=== PATIENT | female | born 1935 | race Caucasian/White ===

== ENCOUNTER 2020-06-11 15:54 | Emergency (ER) | payer MEDICARE, BC ==
[2020-06-11] MEDS ORDERED: Sodium Chloride 0.9% 10 ML Syringe FLUSH PRN ×2 (15:59→16:13)
[2020-06-11 16:11] VITALS: BP 164/107
[2020-06-11] MEDS ORDERED: Diltiazem 25 MG/5 ML SDV IVPUSH ONE (16:13)
[2020-06-11] MEDS ORDERED: Diltiazem 125 MG in Sodium Chloride 0.9% 100 ML IV SCH (16:15)
[2020-06-11 16:40] LABS: PTT,PARTIAL THROMBOPLSTIN TIME 32.3 SEC (22.0-34.0)
[2020-06-11 16:46] LABS: ANION GAP 14.3 mEq/L (7-13); CHLORIDE,CL 106 mmol/L (98-107); SODIUM,NA 141 mmol/L (136-145)
--- NOTE | 2020-06-11 16:49 | CR ---
PROCEDURE INFORMATION: Exam: XR Chest, 1 View Exam date and time: 06/11/2020 4:33 PM Age: 85 years old Clinical indication: Other: Chest pain TECHNIQUE: Imaging protocol: XR of the chest Views: 1 view. COMPARISON: CT Chest w Cont 08/18/2015 4:43 PM FINDINGS: Lungs: The lungs are hyperinflated, consistent with underlying small airways disease. Nonspecific bibasilar consolidation is present, consistent with atelectasis, edema, or pneumonia. Pleural space: Unremarkable. No pleural effusion. No pneumothorax. Heart/Mediastinum: Unremarkable. No cardiomegaly. Bones/joints: Unremarkable. IMPRESSION: Nonspecific bibasilar consolidation is present, consistent with atelectasis, edema, or pneumonia.
[2020-06-11] MEDS ORDERED: Digoxin 500 MCG/2 ML Amp IVPUSH ONE (17:21)
[2020-06-11 17:49] VITALS: PULSE 110
--- NOTE | 2020-06-11 19:01 | EDM.PDOC ---
Scribed by Tabatha Petersen 06/11/20 1632 for Nadir Little MD <Nadir Little - Last Filed: 06/11/20 19:09> ED HPI GENERAL MEDICAL PROBLEM - General Chief Complaint: Cardiovascular Problem Stated Complaint: CLINIC TO ER Time Seen by Provider: 06/11/20 16:06 Source of Information: Reports: Patient, RN, RN Notes Reviewed History Limitations: Reports: No Limitations - History of Present Illness INITIAL COMMENTS - FREE TEXT/NARRATIVE: Patient presents to ED by POV from [facility] to see Dr. Falcon with complaint of feeling generalized weakness with shortness of breath, rapid heart rate and a mild chest pressure for the past 3 days. Denies radiating pain, dizziness, lightheadedness or syncope. Denies cough, orthopnea, increasing edema, palpitations, fever, chills or any known COVID exposures. History of pulmonary embolism x3 approximately 3 years ago. INR in clinic today was 2.4. Onset Date: 06/08/20 Duration: Constant Location: Reports: Chest Quality: Reports: Ache Severity: Moderate Improves with: Reports: None Worsens with: Reports: None Associated Symptoms: Reports: No Other Symptoms - Related Data Allergies Allergy/AdvReac Type Severity Reaction Status Date / Time levofloxacin [From Levaquin] Allergy Unknown Other Verified 08/20/15 13:06 Home Meds: Home Meds LORazepam 1 tab PO Q6H PRN 08/18/15 [History] Lutein 1 tab PO DAILY 08/18/15 [History] Methylcellulose [Citrucel] 2 tab PO DAILY 08/18/15 [History] Omeprazole [Prilosec] 20 mg PO BID 08/18/15 [History] Vitamin E 400 units PO DAILY 08/18/15 [History] Warfarin [Coumadin] 5 mg PO DAILY #30 tablet 08/23/15 [Rx] Past Medical History Other HEENT History: Pt states that she sees well with her glasses Cardiovascular History: Reports: Blood Clots/VTE/DVT (PE x3 in 2017) Gastrointestinal History: Reports: GERD Psychiatric History: Reports: Anxiety Social & Family History - Family History Family Medical History: Noncontributory - Living Situation & Occupation Living situation: Reports: , Alone Occupation: Retired ED ROS GENERAL - Review of Systems Review Of Systems: Comprehensive ROS is negative, except as noted in HPI. ED EXAM, GENERAL - Physical Exam Exam: See Below Exam Limited By: No Limitations General Appearance: Alert, WD/WN, No Apparent Distress, Anxious Eye Exam: Bilateral Eye: Normal Inspection Nose: Normal Inspection, Normal Mucosa, No Blood Throat/Mouth: Normal Inspection, Normal Lips, Normal Teeth, Normal Gums, Normal Oropharynx, Normal Voice, No Airway Compromise Head: Atraumatic, Normocephalic Neck: Normal Inspection, Supple, Non-Tender, Full Range of Motion Respiratory/Chest: No Respiratory Distress, Lungs Clear, Normal Breath Sounds, No Accessory Muscle Use, Chest Non-Tender Cardiovascular: No Edema, No JVD, Tachycardia, Extra Beats GI/Abdominal: Normal Bowel Sounds, Soft, Non-Tender Back Exam: Normal Inspection Extremities: Normal Inspection, Normal Range of Motion, Non-Tender, No Pedal Edema Neurological: Alert, Oriented, CN II-XII Intact, Normal Cognition, Normal Gait, No Motor/Sensory Deficits Psychiatric: Normal Affect, Anxious Skin Exam: Warm, Dry, Intact, Normal Color, No Rash EKG INTERPRETATION EKG Date: 06/11/20 Time: 16:09 Rhythm: A-Fib (RVR.) Rate (Beats/Min): 139 [place]: Normal P-Wave: Present QRS: Normal ST-T: Normal QT: Prolonged EKG Interpretation Comments: EKG #2 at 1627hours shows atrial flutter with varied AV block. Rate is 100. Inferior infarct, acute. Course - Radiology Interpretation Free Text/Narrative:: Chest x-ray: Nonspecific bibasilar consolidation is present, consistent with atelectasis, edema, or pneumonia. See rad report. - Re-Assessments/Exams Free Text/Narrative Re-Assessment/Exam: 06/11/20 18:55 Pt now rate controlled but with persistent A-fib on the Cardizem drip. No bed available at [facility]. Plan to admit pt here to the hospitalist. Free Text/Narrative Re-Assessment/Exam: 06/11/20 19:09 Dr. Pandey will evaluate to see if he can admit the pt here or not. Care transferred to [facility] while awaiting decision to admit or transfer. Departure - Departure Time of Disposition: 19:00 Disposition: DC/Tfer to Acute Hospital 02 Condition: Good Clinical Impression: New onset atrial fibrillation, Atrial fibrillation with rapid ventricular response - Discharge Information *PRESCRIPTION DRUG MONITORING PROGRAM REVIEWED*: Not Applicable *COPY OF PRESCRIPTION DRUG MONITORING REPORT IN PATIENT JIN: Not Applicable Forms: ED Department Discharge Care Plan Goals: Discussed the patient's history, examination, EKG and treatments with Dr. Perez (Hospitalist with [facility] in [place]). Dr. Perez accepted the patient for continued evaluation and management as an inpatient at [facility] in [place]. The patient will be transported by [facility]. <Alonzo Duffy - Last Filed: 06/11/20 20:40> Course - Vital Signs Last Recorded V/S: Last Vital Signs Temp 35.8 C L 06/11/20 16:10 Pulse 110 H 06/11/20 17:46 Resp 20 06/11/20 16:10 BP 164/107 H 06/11/20 16:10 Pulse Ox 96 06/11/20 16:10 - Orders/Labs/Meds Orders: Active Orders 24 hr Category Date Time Status EKG 12 Lead [EKG Documentation Completion] [RC] STAT Care 06/11/20 15:59 Active EKG 12 Lead [EKG Documentation Completion] [RC] STAT Care 06/11/20 16:25 Active Peripheral IV Care [RC] . DIRECTED Care 06/11/20 15:59 Active Peripheral IV Care [RC] . DIRECTED Care 06/11/20 16:13 Active Regular Diet [DIET] Diet 06/11/20 Dinner Active Diltiazem 125 mg Med 06/11/20 16:15 Active Sodium Chloride 0.9% [Normal Saline] 100 ml IV TITRATE Sodium Chloride 0.9% [Saline Flush] Med 06/11/20 15:59 Active 10 ml FLUSH ASDIRECTED PRN Sodium Chloride 0.9% [Saline Flush] Med 06/11/20 16:13 Active 10 ml FLUSH ASDIRECTED PRN Peripheral IV Insertion Adult [OM.PC] Stat Oth 06/11/20 15:59 Ordered Peripheral IV Insertion Adult [OM.PC] Stat Oth 06/11/20 16:13 Ordered Medication Orders Diltiazem HCl 125 mg/ Sodium (Chloride) 125 mls @ 5 mls/hr IV TITRATE ROMULO; Protocol Last Titration: 06/11/20 17:21 Dose: 15 mg/hr, 15 mls/hr Documented by: Titration: 06/11/20 17:13 Dose: 10 mg/hr, 10 mls/hr Documented by: Admin: 06/11/20 16:34 Dose: 5 mg/hr, 5 mls/hr Documented by: TILTALI Sodium Chloride (Saline Flush) 10 ml FLUSH ASDIRECTED PRN PRN Reason: Keep Vein Open Last Admin: 06/11/20 16:25 Dose: 10 ml Documented by: TILTALI Sodium Chloride (Saline Flush) 10 ml FLUSH ASDIRECTED PRN PRN Reason: Keep Vein Open Labs: Laboratory Tests 06/11/20 06/11/20 06/11/20 Range/Units 16:10 16:10 16:10 WBC 7.0 (5.0-10.0) 10^3/uL RBC 3.81 L (4.2-5.4) 10^6/uL Hgb 12.4 (12.0-16.0) g/dL Hct 37.9 (37.0-47.0) % MCV 99.5 (80-100) fL MCH 32.5 (27.0-34.0) pg MCHC 32.7 L (33.0-35.0) g/dL Plt Count 256 D (150-450) 10^3/uL Neut % (Auto) 62.5 (42.2-75.2) % Lymph % (Auto) 23.5 (20.5-50.1) % [place] % (Auto) 8.4 H (2-8) % Eos % (Auto) 5.3 H (1.0-3.0) % Baso % (Auto) 0.3 (0.0-1.0) % PT 20.8 H D (9.0-12.0) SEC INR 2.2 H (0.9-1.2) APTT 32.3 (22.0-34.0) SEC Sodium 141 (136-145) mmol/L Potassium 4.3 (3.5-5.1) mmol/L Chloride 106 (98-107) mmol/L Carbon Dioxide 25 (21-32) mmol/L Anion Gap 14.3 H (7-13) mEq/L BUN 25 H (7-18) mg/dL Creatinine 0.82 (0.55-1.02) mg/dL Est Cr Clr Drug Dosing 39.98 mL/min Estimated GFR (MDRD) > 60 BUN/Creatinine Ratio 30.5 (No establ ref range) Glucose 102 H (74-99) mg/dL Calcium 8.8 (8.5-10.1) mg/dL Magnesium 2.3 (1.8-2.4) mg/dL Total Bilirubin 0.4 (0.2-1.0) mg/dL AST 27 (15-37) U/L ALT 71 H (14-59) U/L Alkaline Phosphatase 87 (46-116) U/L Troponin I < 0.017 (0.000-0.056) ng/mL B-Natriuretic Peptide 402 H (0-100) pg/ml Total Protein 7.0 (6.4-8.2) g/dL Albumin 3.3 L (3.4-5.0) g/dL Globulin 3.7 Albumin/Globulin Ratio 0.89 TSH, Ultra Sensitive 0.98 (0.36-3.74) uIU/mL Meds: Medications Generic Name Dose Route Start Last Admin Trade Name Freq PRN Reason Stop Dose Admin Diltiazem HCl 125 mg/ Sodium 125 mls @ 5 mls/hr 06/11/20 16:15 06/11/20 17:21 Chloride IV 15 mg/hr TITRATE ROMULO 15 mls/hr Titration Protocol 5 MG/HR Sodium Chloride 10 ml 06/11/20 15:59 06/11/20 16:25 Saline Flush FLUSH 10 ml ASDIRECTED PRN Administration Keep Vein Open Sodium Chloride 10 ml 06/11/20 16:13 Saline Flush FLUSH ASDIRECTED PRN Keep Vein Open Discontinued Medications Generic Name Dose Route Start Last Admin Trade Name Freq PRN Reason Stop Dose Admin Digoxin 250 mcg 06/11/20 17:21 06/11/20 17:46 Lanoxin IVPUSH 06/11/20 17:22 250 mcg ONETIME ONE Administration Diltiazem HCl 20 mg 06/11/20 16:13 06/11/20 16:21 Diltiazem IVPUSH 06/11/20 16:14 20 mg ONETIME ONE Administration Departure - Departure Time of Disposition: 20:39 Sepsis Event Note (ED) - Focused Exam Vital Signs: Vital Signs Temp Pulse Pulse Resp BP Pulse Ox 06/11/20 17:46 110 H 06/11/20 16:10 35.8 C L 140 H 20 164/107 H 96 I have read and agree with the documentation that has been completed regarding this visit. By signing this record, I attest that the documentation was completed in my physical presence and is an accurate record of the encounter.
== END 2020-06-11 22:23 ==
LOC: DL.ED 15:54
DX: I48.91 Unspecified atrial fibrillation (principal); K21.9 Gastro-esophageal reflux disease without esophagitis; Z79.01 Long term (current) use of anticoagulants; Z79.899 Other long term (current) drug therapy; Z88.1 Allergy status to other antibiotic agents; R06.02 Shortness of breath
CPT/HCPCS: 36415; 71045; 80053; 83735; 83880; 84443; 84484; 85025; 85610; 85730; 93005; 93010; 96365; 96366; 96375; 99284; 99285; J1160; J3490; J7050

== ENCOUNTER 2021-08-15 08:09 | Inpatient (IN) | payer MEDICARE, BC ==
--- NOTE | 2021-08-15 08:46 | EDM.PDOC ---
"ED HPI GENERAL MEDICAL PROBLEM - General Chief Complaint: Respiratory Problem Stated Complaint: COVID Time Seen by Provider: 08/15/21 08:46 Source of Information: Reports: Patient, Old Records, RN, RN Notes Reviewed History Limitations: Reports: No Limitations - History of Present Illness INITIAL COMMENTS - FREE TEXT/NARRATIVE: Pt presents to ER with c/o shortness of breath and cough. She was recently diagnosed with COVID and was doing well at home until last night. She had an outpatient order from clinic to receive IV Regeneron, but due to a supply issue she was not able to receive the infusion. Pt admits to feeling a fast HR, but denies chest pain. She is chronically anticoagulated on Coumadin for A-fib. She is unsure of fever or chills. She claims she had a COVID vaccine, but does not know when. Onset: Gradual Duration: Constant, Getting Worse Location: Reports: Chest, Generalized Severity: Moderate Improves with: Reports: None Worsens with: Reports: None abdomen Pain Score (Numeric/FACES): 1 - Related Data Allergies Allergy/AdvReac Type Severity Reaction Status Date / Time levofloxacin [From Levaquin] Allergy Unknown Other Verified 08/15/21 08:38 Home Meds: Home Meds LORazepam 1 tab PO Q6H PRN 08/18/15 [History] Lutein 1 tab PO DAILY 08/18/15 [History] Methylcellulose [Citrucel] 2 tab PO DAILY 08/18/15 [History] Omeprazole [Prilosec] 20 mg PO BID 08/18/15 [History] Vitamin E 400 units PO DAILY 08/18/15 [History] Warfarin [Coumadin] 5 mg PO DAILY #30 tablet 08/23/15 [Rx] Past Medical History Other HEENT History: Pt states that she sees well with her glasses Cardiovascular History: Reports: Afib, Blood Clots/VTE/DVT Respiratory History: Reports: None Gastrointestinal History: Reports: GERD Genitourinary History: Reports: None 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: Musculoskeletal History: Reports: None Neurological History: Reports: None Psychiatric History: Reports: Anxiety Endocrine/Metabolic History: Reports: None Hematologic History: Reports: None Immunologic History: Reports: None Oncologic (Cancer) History: Reports: None Dermatologic History: Reports: None - Infectious Disease History Infectious Disease History: Reports: None Social & Family History - Family History Family Medical History: No Pertinent Family History - Tobacco Use Tobacco Use Status *Q: Never Tobacco User Second Hand Smoke Exposure: No - Caffeine Use Caffeine Use: Reports: Coffee - Recreational Drug Use Recreational Drug Use: No - Living Situation & Occupation Living situation: Reports: , Alone Occupation: Retired ED ROS GENERAL - Review of Systems Review Of Systems: Comprehensive ROS is negative, except as noted in HPI. ED EXAM, GENERAL - Physical Exam Exam: See Below Exam Limited By: No Limitations General Appearance: Alert, No Apparent Distress, Other (Frail elderly appearing) Eye Exam: Bilateral Eye: Normal Inspection Nose: Normal Inspection, No Blood Throat/Mouth: Normal Lips, Normal Voice, No Airway Compromise Head: Atraumatic, Normocephalic Neck: Normal Inspection Respiratory/Chest: No Respiratory Distress, No Accessory Muscle Use, Decreased Breath Sounds. No: Crackles, Rales, Rhonchi, Wheezing Cardiovascular: Tachycardia, Irregularly Irregular GI/Abdominal: Normal Bowel Sounds, Soft, Non-Tender Back Exam: Normal Inspection Extremities: Normal Inspection Neurological: Alert, Oriented (to person and place), No Motor/Sensory Deficits, Confused Psychiatric: Normal Mood Skin Exam: Warm, Dry, Intact, Normal Color, No Rash #1 Interpretation EKG Date: 08/15/21 Time: 08:55 Rhythm: Other (atrial fibrillation with rapid V-rate) Rate (Beats/Min): 147 [place]: Normal P-Wave: Present QRS: Normal ST-T: Other (borderline T abnormalities, anterior leads) QT: Normal Comparison: NA - No Prior EKG Course - Vital Signs Last Recorded V/S: Last Vital Signs Temp 99.2 F 08/15/21 08:32 Pulse 146 H 08/15/21 08:32 Resp 28 H 08/15/21 08:32 BP 134/90 08/15/21 08:32 Pulse Ox 94 L 08/15/21 08:32 - Orders/Labs/Meds Orders: Active Orders 24 hr Category Date Time Status Peripheral IV Care [RC] . DIRECTED Care 08/15/21 08:47 Active CULTURE BLOOD [BC] Stat Lab 08/15/21 08:29 Results CULTURE BLOOD [BC] Stat Lab 08/15/21 09:35 Received Diltiazem 125 mg Med 08/15/21 09:00 Active Sodium Chloride 0.9% [Normal Saline] 100 ml IV TITRATE Sodium Chloride 0.9% [Saline Flush] Med 08/15/21 08:47 Active 10 ml FLUSH ASDIRECTED PRN Blood Culture x2 Reflex Set [OM.PC] Stat Oth 08/15/21 08:46 Ordered Peripheral IV Insertion Pediatric [OM.PC] Stat Oth 08/15/21 08:46 Ordered Medication Orders Diltiazem HCl 125 mg/ Sodium (Chloride) 125 mls @ 10 mls/hr IV TITRATE ROMULO; Protocol Last Titration: 08/15/21 09:15 Dose: 0 mg/hr, 0 mls/hr Documented by: Titration: 08/15/21 09:11 Dose: 10 mg/hr, 10 mls/hr Documented by: Admin: 08/15/21 09:04 Dose: 10 mg/hr, 10 mls/hr Documented by: MAYITO Sodium Chloride (Sodium Chloride 0.9% 10 Ml Syringe) 10 ml FLUSH ASDIRECTED PRN PRN Reason: Keep Vein Open Last Admin: 08/15/21 09:04 Dose: 10 ml Documented by: MAYITO Labs: Laboratory Tests 08/15/21 08/15/21 08/15/21 Range/Units 08:29 08:29 08:29 WBC 5.1 (5.0-10.0) 10^3/uL RBC 3.80 L (4.2-5.4) 10^6/uL Hgb 12.0 (12.0-16.0) g/dL Hct 36.0 L (37.0-47.0) % MCV 94.7 D (80-100) fL MCH 31.6 (27.0-34.0) pg MCHC 33.3 (33.0-35.0) g/dL Plt Count 125 L D (150-450) 10^3/uL Neut % (Auto) 61.8 (42.2-75.2) % Lymph % (Auto) 25.9 (20.5-50.1) % [place] % (Auto) 12.1 H (2-8) % Eos % (Auto) 0.0 L (1.0-3.0) % Baso % (Auto) 0.2 (0.0-1.0) % PT 25.7 H D (9.0-12.0) SEC INR 2.6 H (0.9-1.2) APTT 34.4 H (22.0-34.0) SEC D-Dimer, Quantitative < 100 (0-400) ng/mL Sodium 140 (136-145) mmol/L Potassium 3.7 (3.5-5.1) mmol/L Chloride 106 (98-107) mmol/L Carbon Dioxide 24 (21-32) mmol/L Anion Gap 13.7 H (7-13) mEq/L BUN 17 (7-18) mg/dL Creatinine 1.13 H (0.55-1.02) mg/dL Est Cr Clr Drug Dosing 34.71 mL/min Estimated GFR (MDRD) 45 BUN/Creatinine Ratio 15.0 (No establ ref range) Glucose 99 (70-99) mg/dL Lactic Acid (0.4-2.0) mmol/L Calcium 8.4 L (8.5-10.1) mg/dL Ferritin (8-252) mg/mL Total Bilirubin 0.7 (0.2-1.0) mg/dL AST 28 (15-37) U/L ALT 25 (14-59) U/L Alkaline Phosphatase 68 (46-116) U/L Troponin I High Sens 15 (<=51) pg/mL C-Reactive Protein < 0.2 (0.0-0.9) mg/dL B-Natriuretic Peptide 459 H (0-100) pg/ml Total Protein 6.3 L (6.4-8.2) g/dL Albumin 3.3 L (3.4-5.0) g/dL Globulin 3.0 Albumin/Globulin Ratio 1.10 08/15/21 08/15/21 Range/Units 08:29 08:29 WBC (5.0-10.0) 10^3/uL RBC (4.2-5.4) 10^6/uL Hgb (12.0-16.0) g/dL Hct (37.0-47.0) % MCV (80-100) fL MCH (27.0-34.0) pg MCHC (33.0-35.0) g/dL Plt Count (150-450) 10^3/uL Neut % (Auto) (42.2-75.2) % Lymph % (Auto) (20.5-50.1) % [place] % (Auto) (2-8) % Eos % (Auto) (1.0-3.0) % Baso % (Auto) (0.0-1.0) % PT (9.0-12.0) SEC INR (0.9-1.2) APTT (22.0-34.0) SEC D-Dimer, Quantitative (0-400) ng/mL Sodium (136-145) mmol/L Potassium (3.5-5.1) mmol/L Chloride (98-107) mmol/L Carbon Dioxide (21-32) mmol/L Anion Gap (7-13) mEq/L BUN (7-18) mg/dL Creatinine (0.55-1.02) mg/dL Est Cr Clr Drug Dosing mL/min Estimated GFR (MDRD) BUN/Creatinine Ratio (No establ ref range) Glucose (70-99) mg/dL Lactic Acid 1.3 (0.4-2.0) mmol/L Calcium (8.5-10.1) mg/dL Ferritin 75 (8-252) mg/mL Total Bilirubin (0.2-1.0) mg/dL AST (15-37) U/L ALT (14-59) U/L Alkaline Phosphatase (46-116) U/L Troponin I High Sens (<=51) pg/mL C-Reactive Protein (0.0-0.9) mg/dL B-Natriuretic Peptide (0-100) pg/ml Total Protein (6.4-8.2) g/dL Albumin (3.4-5.0) g/dL Globulin Albumin/Globulin Ratio Meds: Medications Generic Name Dose Route Start Last Admin Trade Name Freq PRN Reason Stop Dose Admin Diltiazem HCl 125 mg/ Sodium 125 mls @ 10 mls/hr 08/15/21 09:00 08/15/21 09:15 Chloride IV 0 mg/hr TITRATE ROMULO 0 mls/hr Titration Protocol 10 MG/HR Sodium Chloride 10 ml 08/15/21 08:47 08/15/21 09:04 Sodium Chloride 0.9% 10 Ml Syringe FLUSH 10 ml ASDIRECTED PRN Administration Keep Vein Open Discontinued Medications Generic Name Dose Route Start Last Admin Trade Name Freq PRN Reason Stop Dose Admin Diltiazem HCl 20 mg 08/15/21 08:48 08/15/21 09:04 Diltiazem 25 Mg/5 Ml Sdv IVPUSH 08/15/21 08:49 20 mg ONETIME ONE Administration - Radiology Interpretation Free Text/Narrative:: [facility] [place] [facility] Final Radiology Report Call: [phone] assistance Online chat: [email or web address] Name: KANDICE NAZARIO Age: 86Years F Date: 08/15/2021 SSN: -- : [id number] Study: CT CHEST WO CONT Requesting Physician: NOLVIA REES Images: [id number] Addl Studies: Provided Clinical History: COVID, hypoxia, A-fib w/RVR Contrast: Without Contrast Medium: Contrast Amount: Contrast Method: Page 1 of 2 PROCEDURE INFORMATION: Exam: CT Chest Without Contrast; Diagnostic Exam date and time: 08/15/2021 9:43 AM Age: 86 years old Clinical indication: Other: Covid, hypoxia, a-fib w/rvr TECHNIQUE: Imaging protocol: Diagnostic computed tomography of the chest without contrast. Radiation optimization: All CT scans at this facility use at least one of these dose optimization techniques: automated exposure control; mA and/or kV adjustment per patient size (includes targeted exams where dose is matched to clinical indication); or iterative reconstruction. COMPARISON: CR Chest 1V Frontal 06/11/2020 4:33 PM FINDINGS: Lungs: Bilateral lower lobe atelectasis/consolidation. Right lower lobe lung nodule measuring 7 mm. Bilateral multifocal ground-glass opacities. Pleural spaces: Bilateral moderate sized pleural effusions. Heart: Cardiomegaly. Calcified coronary artery disease. Aorta: Unremarkable. No aortic aneurysm. Lymph nodes: Unremarkable. No enlarged lymph nodes. Diaphragm: Small hiatal hernia. Kidneys and ureters: Bilateral renal cortical cystic nodules. Largest superior cortex right kidney measuring 5.5 cm. Bones/joints: Lower thoracic spine compression deformity. Soft tissues: Unremarkable. IMPRESSION: 1. Bilateral multifocal ground-glass opacities. Findings could be secondary to COVID-19 pneumonia. KANDICE NAZARIO | Final Radiology Report CONFIDENTIALITY STATEMENT This report is intended only for use by the referring physician, and only in accordance with law. If you received this in error, call [phone]. Page 2 of 2 2. Bilateral moderate sized pleural effusions with lower lobe atelectasis/consolidation. 3. Right lower lobe lung nodule.For patients at low risk (minimal or absent history of smoking and of other known risk factors), recommend CT Chest at 6-12 months, then consider CT Chest at 18-24 months. For patients at high risk (history of smoking or of other known risk factors), recommend CT Chest at 6-12 months, then [address] Chest at 18-24 months. (Reference: Pj) 4. Bilateral renal cortical cystic nodules incompletely imaged. COMMENTS: Consistent with the [place] [employer]'s Incidental Findings Committee white paper (J Am Cristi Radiol 2018): Any incidental renal lesion less than 1 cm or classified as too small to characterize, or any incidental cystic renal lesion characterized as simple- appearing, is likely benign. No follow-up imaging is recommended for these lesions per consensus recommendations based on imaging criteria. REFERENCES: Pj Hayes, et al. Guidelines for Management of Incidental Pulmonary Nodules Detected on CT Images: From the Fleischner Society 2017. Radiology. 2017;284(1):228-243. Thank you for allowing us to participate in the care of your patient. Dictated and Authenticated by: Owen Cottrell MD 08/15/2021 10:41 AM Central Time ([place] & [place]) Departure - Departure Time of Disposition: 11:54 (admitted to Dr. Ward) Disposition: Admitted As Inpatient 64 Condition: Fair Clinical Impression: COVID-19 virus infection, Atrial fibrillation with rapid ventricular response, Hypoxia - Discharge Information *PRESCRIPTION DRUG MONITORING PROGRAM REVIEWED*: Not Applicable *COPY OF PRESCRIPTION DRUG MONITORING REPORT IN PATIENT JIN: Not Applicable Forms: ED Department Discharge Sepsis Event Note (ED) - Evaluation Sepsis Screening Result: No Definite Risk - Focused Exam Vital Signs: Vital Signs Temp Pulse Resp BP Pulse Ox 08/15/21 08:32 99.2 F 146 H 28 H 134/90 94 L - My Orders Last 24 Hours: My Active Orders 08/15/21 08:29 CULTURE BLOOD [BC] Stat 08/15/21 08:46 Blood Culture x2 Reflex Set [OM.PC] Stat Peripheral IV Insertion Pediatric [OM.PC] Stat 08/15/21 08:47 Peripheral IV Care [RC] . DIRECTED Sodium Chloride 0.9% [Saline Flush] 10 ml FLUSH ASDIRECTED PRN 08/15/21 09:00 Diltiazem 125 mg Sodium Chloride 0.9% [Normal Saline] 100 ml IV TITRATE 08/15/21 09:35 CULTURE BLOOD [BC] Stat - Assessment/Plan Last 24 Hours: My Active Orders 08/15/21 08:29 CULTURE BLOOD [BC] Stat 08/15/21 08:46 Blood Culture x2 Reflex Set [OM.PC] Stat Peripheral IV Insertion Pediatric [OM.PC] Stat 08/15/21 08:47 Peripheral IV Care [RC] . DIRECTED Sodium Chloride 0.9% [Saline Flush] 10 ml FLUSH ASDIRECTED PRN 08/15/21 09:00 Diltiazem 125 mg Sodium Chloride 0.9% [Normal Saline] 100 ml IV TITRATE 08/15/21 09:35 CULTURE BLOOD [BC] Stat"
[2021-08-15] MEDS ORDERED: Diltiazem 25 MG/5 ML SDV IVPUSH ONE (08:48)
[2021-08-15] MEDS: Sodium Chloride 0.9% 10 ML Syringe FLUSH PRN (09:04)
[2021-08-15] MEDS: Diltiazem 125 MG in Sodium Chloride 0.9% 100 ML IV SCH (09:04)
[2021-08-15 09:15] LABS: PTT,PARTIAL THROMBOPLSTIN TIME 34.4 SEC (22.0-34.0)
[2021-08-15 09:23] LABS: ANION GAP 13.7 mEq/L (7-13); CHLORIDE,CL 106 mmol/L (98-107); SODIUM,NA 140 mmol/L (136-145)
--- NOTE | 2021-08-15 10:41 | CT ---
PROCEDURE INFORMATION: Exam: CT Chest Without Contrast; Diagnostic Exam date and time: 08/15/2021 9:43 AM Age: 86 years old Clinical indication: Other: Covid, hypoxia, a-fib w/rvr TECHNIQUE: Imaging protocol: Diagnostic computed tomography of the chest without contrast. Radiation optimization: All CT scans at this facility use at least one of these dose optimization techniques: automated exposure control; mA and/or kV adjustment per patient size (includes targeted exams where dose is matched to clinical indication); or iterative reconstruction. COMPARISON: CR Chest 1V Frontal 06/11/2020 4:33 PM FINDINGS: Lungs: Bilateral lower lobe atelectasis/consolidation. Right lower lobe lung nodule measuring 7 mm. Bilateral multifocal ground-glass opacities. Pleural spaces: Bilateral moderate sized pleural effusions. Heart: Cardiomegaly. Calcified coronary artery disease. Aorta: Unremarkable. No aortic aneurysm. Lymph nodes: Unremarkable. No enlarged lymph nodes. Diaphragm: Small hiatal hernia. Kidneys and ureters: Bilateral renal cortical cystic nodules. Largest superior cortex right kidney measuring 5.5 cm. Bones/joints: Lower thoracic spine compression deformity. Soft tissues: Unremarkable. IMPRESSION: 1. Bilateral multifocal ground-glass opacities. Findings could be secondary to COVID-19 pneumonia. 2. Bilateral moderate sized pleural effusions with lower lobe atelectasis/consolidation. 3. Right lower lobe lung nodule.For patients at low risk (minimal or absent history of smoking and of other known risk factors), recommend CT Chest at 6-12 months, then consider CT Chest at 18-24 months. For patients at high risk (history of smoking or of other known risk factors), recommend CT Chest at 6-12 months, then CT Chest at 18-24 months. (Reference: Pj) 4. Bilateral renal cortical cystic nodules incompletely imaged. COMMENTS: Consistent with the [employer]'s Incidental Findings Committee white paper (J Am Cristi Radiol 2018): Any incidental renal lesion less than 1 cm or classified as too small to characterize, or any incidental cystic renal lesion characterized as simple-appearing, is likely benign. No follow-up imaging is recommended for these lesions per consensus recommendations based on imaging criteria. REFERENCES: Pj Hayes, et al. Guidelines for Management of Incidental Pulmonary Nodules Detected on CT Images: From the [employer] 2017. Radiology. 2017;284(1):228-243.
--- NOTE | 2021-08-15 14:27 | PCM.HP ---
"H&P History of Present Illness - General Date of Service: 08/15/21 Admit Problem/Dx: Admission Diagnosis/Problem Admission Diagnosis/Problem Pneumonia Source of Information: Patient, Provider (ER) - History of Present Illness Initial Comments - Free Text/Narative: Pt presents to ER with c/o shortness of breath and cough. She was recently diagnosed with COVID. Pt could not specify the exact date. Pt was doing well at home until last night. She had an outpatient order from clinic to receive IV Regeneron, but due to a supply issue she was not able to receive the infusion. Pt admits to feeling a fast HR, but denies chest pain. She is chronically anticoagulated on Coumadin for A-fib. She is unsure of fever or chills. She claims she had a COVID vaccine, but does not know when. Onset of Symptoms: Reports: Gradual Duration of Symptoms: Reports: Day(s): abdomen Pain Score (Numeric/FACES): 1 - Related Data Allergies/Adverse Reactions: Allergies Allergy/AdvReac Type Severity Reaction Status Date / Time levofloxacin [From Levaquin] Allergy Unknown Other Verified 08/15/21 08:38 Home Medications: Home Meds LORazepam 1 tab PO Q6H PRN 08/18/15 [History] Lutein 1 tab PO DAILY 08/18/15 [History] Methylcellulose [Citrucel] 2 tab PO DAILY 08/18/15 [History] Omeprazole [Prilosec] 20 mg PO BID 08/18/15 [History] Vitamin E 400 units PO DAILY 08/18/15 [History] Furosemide [Lasix] 20 mg PO BIDMEALS 08/15/21 [History] Potassium Chloride [Klor-Con 10] 10 meq PO DAILY 08/15/21 [History] Warfarin [Coumadin] 2.5 mg PO DAILY 08/15/21 [History] carvediloL [Carvedilol] 25 mg PO BID 08/15/21 [History] Past Medical History Other HEENT History: Pt states that she sees well with her glasses Cardiovascular History: Reports: Afib, Blood Clots/VTE/DVT, Other (See Below) (CHF per PCP notes) Respiratory History: Reports: None Gastrointestinal History: Reports: GERD Genitourinary History: Reports: None ORE PUNCHER History: Reports: Musculoskeletal History: Reports: None Neurological History: Reports: None Psychiatric History: Reports: Anxiety Endocrine/Metabolic History: Reports: None Hematologic History: Reports: None Immunologic History: Reports: None Oncologic (Cancer) History: Reports: None Dermatologic History: Reports: None - Infectious Disease History Infectious Disease History: Reports: None Social & Family History - Family History Family Medical History: No Pertinent Family History - Tobacco Use Tobacco Use Status *Q: Never Tobacco User Second Hand Smoke Exposure: No - Caffeine Use Caffeine Use: Reports: Coffee - Recreational Drug Use Recreational Drug Use: No - Living Situation & Occupation Living situation: Reports: , Alone Occupation: Retired H&P Review of Systems - Review of Systems: Review Of Systems: Unable To Obtain (poor histroian) Reason Not Obtained: poor histroian General: Reports: Chills. Denies: Fever HEENT: Reports: No Symptoms Pulmonary: Reports: Shortness of Breath, Cough Cardiovascular: Denies: Chest Pain Gastrointestinal: Reports: Diarrhea. Denies: Abdominal Pain, Vomiting Skin: Reports: No Symptoms Exam - Exam Exam: See Below - Vital Signs Vital Signs: Last Vital Signs Temp 99.2 F 08/15/21 12:02 Pulse 146 H 08/15/21 08:32 Resp 30 H 08/15/21 13:30 BP 124/80 08/15/21 13:30 Pulse Ox 24 L 08/15/21 13:30 Weight: 144 lb - Exam Quality Assessment: Supplemental Oxygen General: Alert, Oriented HEENT: Conjunctiva Clear Neck: Supple Lungs: Clear to Auscultation Cardiovascular: Irregular Rhythm GI/Abdominal Exam: Soft, Non-Tender Back Exam: Normal Inspection Extremities: Other (chronic lymphoedema B) Neurological: Cranial Nerves Intact Neuro Extensive - Mental Status: Alert, Memory Loss-Recent Events Neuro Extensive - Motor, Sensory, Reflexes: CN II-XII Intact Psychiatric: Alert, Normal Affect - Patient Data Lab Results Last 24 hrs: Laboratory Results - last 24 hr 08/15/21 08/15/21 08/15/21 Range/Units 08:29 08:29 08:29 WBC 5.1 (5.0-10.0) 10^3/uL RBC 3.80 L (4.2-5.4) 10^6/uL Hgb 12.0 (12.0-16.0) g/dL Hct 36.0 L (37.0-47.0) % MCV 94.7 D (80-100) fL MCH 31.6 (27.0-34.0) pg MCHC 33.3 (33.0-35.0) g/dL Plt Count 125 L D (150-450) 10^3/uL Neut % (Auto) 61.8 (42.2-75.2) % Lymph % (Auto) 25.9 (20.5-50.1) % [place] % (Auto) 12.1 H (2-8) % Eos % (Auto) 0.0 L (1.0-3.0) % Baso % (Auto) 0.2 (0.0-1.0) % PT 25.7 H D (9.0-12.0) SEC INR 2.6 H (0.9-1.2) APTT 34.4 H (22.0-34.0) SEC D-Dimer, Quantitative < 100 (0-400) ng/mL Sodium 140 (136-145) mmol/L Potassium 3.7 (3.5-5.1) mmol/L Chloride 106 (98-107) mmol/L Carbon Dioxide 24 (21-32) mmol/L Anion Gap 13.7 H (7-13) mEq/L BUN 17 (7-18) mg/dL Creatinine 1.13 H (0.55-1.02) mg/dL Est Cr Clr Drug Dosing 34.71 mL/min Estimated GFR (MDRD) 45 BUN/Creatinine Ratio 15.0 (No establ ref range) Glucose 99 (70-99) mg/dL Lactic Acid (0.4-2.0) mmol/L Calcium 8.4 L (8.5-10.1) mg/dL Ferritin (8-252) mg/mL Total Bilirubin 0.7 (0.2-1.0) mg/dL AST 28 (15-37) U/L ALT 25 (14-59) U/L Alkaline Phosphatase 68 (46-116) U/L Troponin I High Sens 15 (<=51) pg/mL C-Reactive Protein < 0.2 (0.0-0.9) mg/dL B-Natriuretic Peptide 459 H (0-100) pg/ml Total Protein 6.3 L (6.4-8.2) g/dL Albumin 3.3 L (3.4-5.0) g/dL Globulin 3.0 Albumin/Globulin Ratio 1.10 08/15/21 08/15/21 Range/Units 08:29 08:29 WBC (5.0-10.0) 10^3/uL RBC (4.2-5.4) 10^6/uL Hgb (12.0-16.0) g/dL Hct (37.0-47.0) % MCV (80-100) fL MCH (27.0-34.0) pg MCHC (33.0-35.0) g/dL Plt Count (150-450) 10^3/uL Neut % (Auto) (42.2-75.2) % Lymph % (Auto) (20.5-50.1) % [place] % (Auto) (2-8) % Eos % (Auto) (1.0-3.0) % Baso % (Auto) (0.0-1.0) % PT (9.0-12.0) SEC INR (0.9-1.2) APTT (22.0-34.0) SEC D-Dimer, Quantitative (0-400) ng/mL Sodium (136-145) mmol/L Potassium (3.5-5.1) mmol/L Chloride (98-107) mmol/L Carbon Dioxide (21-32) mmol/L Anion Gap (7-13) mEq/L BUN (7-18) mg/dL Creatinine (0.55-1.02) mg/dL Est Cr Clr Drug Dosing mL/min Estimated GFR (MDRD) BUN/Creatinine Ratio (No establ ref range) Glucose (70-99) mg/dL Lactic Acid 1.3 (0.4-2.0) mmol/L Calcium (8.5-10.1) mg/dL Ferritin 75 (8-252) mg/mL Total Bilirubin (0.2-1.0) mg/dL AST (15-37) U/L ALT (14-59) U/L Alkaline Phosphatase (46-116) U/L Troponin I High Sens (<=51) pg/mL C-Reactive Protein (0.0-0.9) mg/dL B-Natriuretic Peptide (0-100) pg/ml Total Protein (6.4-8.2) g/dL Albumin (3.4-5.0) g/dL Globulin Albumin/Globulin Ratio Result Diagrams: 08/15/21 08:29 08/15/21 08:29 Christiano Results Last 24 hrs: Microbiology 08/15/21 08:29 Anaerobic Blood Culture - Final Blood - Venous - Iv Start Imaging Impressions Last 24 hrs: Exam: CT Chest Without Contrast; Diagnostic Exam date and time: 08/15/2021 9:43 AM Age: 86 years old Clinical indication: Other: Covid, hypoxia, a-fib w/rvr TECHNIQUE: Imaging protocol: Diagnostic computed tomography of the chest without contrast. Radiation optimization: All CT scans at this facility use at least one of these dose optimization techniques: automated exposure control; mA and/or kV adjustment per patient size (includes targeted exams where dose is matched to clinical indication); or iterative reconstruction. COMPARISON: CR Chest 1V Frontal 06/11/2020 4:33 PM FINDINGS: Lungs: Bilateral lower lobe atelectasis/consolidation. Right lower lobe lung nodule measuring 7 mm. Bilateral multifocal ground-glass opacities. Pleural spaces: Bilateral moderate sized pleural effusions. Heart: Cardiomegaly. Calcified coronary artery disease. Aorta: Unremarkable. No aortic aneurysm. Lymph nodes: Unremarkable. No enlarged lymph nodes. Diaphragm: Small hiatal hernia. Kidneys and ureters: Bilateral renal cortical cystic nodules. Largest superior cortex right kidney measuring 5.5 cm. Bones/joints: Lower thoracic spine compression deformity. Soft tissues: Unremarkable. IMPRESSION: 1. Bilateral multifocal ground-glass opacities. Findings could be secondary to COVID-19 pneumonia. KANDICE NAZARIO | Final Radiology Report CONFIDENTIALITY STATEMENT This report is intended only for use by the referring physician, and only in accordance with law. If you received this in error, call [phone]. Page 2 of 2 2. Bilateral moderate sized pleural effusions with lower lobe atelectasis/consolidation. 3. Right lower lobe lung nodule.For patients at low risk (minimal or absent history of smoking and of other known risk factors), recommend CT Chest at 6-12 months, then consider CT Chest at 18-24 months. For patients at high risk (history of smoking or of other known risk factors), recommend CT Chest at 6-12 months, then CT Chest at 18-24 months. (Reference: Pj) 4. Bilateral renal cortical cystic nodules incompletely imaged. COMMENTS: Consistent with the [employer]'s Incidental Findings Committee white paper (J Am Cristi Radiol 2018): Any incidental renal lesion less than 1 cm or classified as too small to characterize, or any incidental cystic renal lesion characterized as simple- appearing, is likely benign. No follow-up imaging is recommended for these lesions per consensus recommendations based on imaging criteria. Problem List Initiated/Reviewed/Updated: No Orders Last 24hrs: Active Orders 24 hr Category Date Time Status Admission Diagnosis [ADT] Stat ADT 08/15/21 11:50 Ordered Admission Status [Patient Status] [ADT] Routine ADT 08/15/21 11:50 Active Peripheral IV Care [RC] . DIRECTED Care 08/15/21 08:47 Active CULTURE BLOOD [BC] Stat Lab 08/15/21 08:29 Results CULTURE BLOOD [BC] Stat Lab 08/15/21 09:35 Received Diltiazem 125 mg Med 08/15/21 09:00 Active Sodium Chloride 0.9% [Normal Saline] 100 ml IV TITRATE Sodium Chloride 0.9% [Saline Flush] Med 08/15/21 08:47 Active 10 ml FLUSH ASDIRECTED PRN Blood Culture x2 Reflex Set [OM.PC] Stat Oth 08/15/21 08:46 Ordered Peripheral IV Insertion Pediatric [OM.PC] Stat Oth 08/15/21 08:46 Ordered Medication Orders Diltiazem HCl 125 mg/ Sodium (Chloride) 125 mls @ 10 mls/hr IV TITRATE ROMULO; Protocol Last Titration: 08/15/21 14:00 Dose: 5 mg/hr, 5 mls/hr Documented by: Titration: 08/15/21 12:30 Dose: 10 mg/hr, 10 mls/hr Documented by: MARCELLVCALFIE Titration: 08/15/21 09:15 Dose: 0 mg/hr, 0 mls/hr Documented by: Titration: 08/15/21 09:11 Dose: 10 mg/hr, 10 mls/hr Documented by: Admin: 08/15/21 09:04 Dose: 10 mg/hr, 10 mls/hr Documented by: MAYITO Sodium Chloride (Sodium Chloride 0.9% 10 Ml Syringe) 10 ml FLUSH ASDIRECTED PRN PRN Reason: Keep Vein Open Last Admin: 08/15/21 09:04 Dose: 10 ml Documented by: MAYITO Assessment/Plan Comment:: COVID pneumonia, hypoxia: ? vaccination. Remdesivir, Dexamethasone, Zosyn. AFib with RVR: Diltiazem drip for now. 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 Pharmacy to dose H/o CHF per records: continue home medications including Lasix. w ll try to obtain the report of her recent. Full code as per pt request,"
[2021-08-15] MEDS ORDERED: Albuterol/Ipratropium 3.0-0.5 MG/3 ML Neb Soln NEB SCH (14:30)
[2021-08-15] MEDS ORDERED: Docusate Sodium 100 MG Cap PO PRN (14:30)
[2021-08-15] MEDS ORDERED: Ondansetron 4 MG/2 ML SDV IVPUSH PRN (14:30)
[2021-08-15] MEDS ORDERED: Albuterol 0.083% 2.5 MG/3 ML Neb Soln NEB PRN (14:30)
[2021-08-15] MEDS: Dexamethasone 4 MG/ML SDV IVPUSH SCH (15:42)
[2021-08-15] MEDS: Piperacillin/Tazobactam 3.375 GM in Sodium Chloride 0.9% 100 ML IV SCH ×2 (15:43→21:14)
[2021-08-15] MEDS ORDERED: REMDESIVIR 200 MG in Sodium Chloride 0.9% 250 ML IV ONE (16:00)
[2021-08-15] MEDS ORDERED: Warfarin 2.5 MG Tab PO ONE (17:00)
[2021-08-15] MEDS: Furosemide 20 MG Tab PO SCH (17:10)
[2021-08-15] MEDS: Carvedilol 25 MG Tab PO SCH (21:18)
[2021-08-15] MEDS: LORazepam 0.5 MG Tab PO PRN (21:19)
[2021-08-15] MEDS: Omeprazole 20 MG Cap.CR PO SCH (21:20)
[2021-08-16] MEDS: Piperacillin/Tazobactam 3.375 GM in Sodium Chloride 0.9% 100 ML IV SCH ×4 (03:07→21:11)
[2021-08-16] MEDS: Diltiazem 125 MG in Sodium Chloride 0.9% 100 ML IV SCH (06:19)
[2021-08-16] MEDS: Omeprazole 20 MG Cap.CR PO SCH ×2 (06:23→21:07)
[2021-08-16 07:21] LABS: ANION GAP 15.7 mEq/L (7-13)
[2021-08-16] MEDS: Furosemide 20 MG Tab PO SCH ×2 (08:31→18:41)
[2021-08-16] MEDS: Potassium Chloride 10 MEQ Tab.ER PO SCH (08:31)
[2021-08-16] MEDS: Dexamethasone 4 MG/ML SDV IVPUSH SCH (08:31)
[2021-08-16] MEDS: Vitamin E (dl-alpha-tocopherol acetate) 400 Unit Cap PO SCH (08:31)
[2021-08-16] MEDS: Carvedilol 25 MG Tab PO SCH ×2 (08:36→21:06)
[2021-08-16] MEDS ORDERED: Non-Formulary Medication 1 Each (Lutein [Lutein] 20 MG Capsule) PO SCH (09:00)
[2021-08-16] MEDS ORDERED: Warfarin 2.5 MG Tab PO SCH (09:00)
--- NOTE | 2021-08-16 13:13 | PCM.PN ---
- General Info Date of Service: 08/16/21 Subjective Update: Feeling much better. Berating at baseline . Ambulating at baseline. Functional Status: Reports: Tolerating Diet. Denies: Pain Controlled - Review of Systems General: Denies: Fever Pulmonary: Denies: Shortness of Breath Cardiovascular: Denies: Chest Pain Gastrointestinal: Denies: Abdominal Pain Genitourinary: Denies: Dysuria Neurological: Denies: Confusion Psychiatric: Denies: Confusion - Patient Data Vitals - Most Recent: Last Vital Signs Temp 96.7 F L 08/16/21 12:00 Pulse 98 08/16/21 12:00 Resp 22 H 08/16/21 12:00 BP 105/62 08/16/21 12:00 Pulse Ox 94 L 08/16/21 12:00 Weight - Most Recent: 144 lb I&O - Last 24 Hours: Intake & Output 08/15/21 08/16/21 08/16/21 22:59 06:59 14:59 Intake Total 400 120 Output Total 800 100 Balance -400 20 Lab Results Last 24 Hours: Laboratory Results - last 24 hr 08/15/21 08/15/21 08/16/21 Range/Units 17:07 21:08 06:37 WBC (5.0-10.0) 10^3/uL RBC (4.2-5.4) 10^6/uL Hgb (12.0-16.0) g/dL Hct (37.0-47.0) % MCV (80-100) fL MCH (27.0-34.0) pg MCHC (33.0-35.0) g/dL Plt Count (150-450) 10^3/uL Neut % (Auto) (42.2-75.2) % Lymph % (Auto) (20.5-50.1) % [place] % (Auto) (2-8) % Eos % (Auto) (1.0-3.0) % Baso % (Auto) (0.0-1.0) % PT 32.5 H (9.0-12.0) SEC INR 3.3 H (0.9-1.2) Sodium (136-145) mmol/L Potassium (3.5-5.1) mmol/L Chloride (98-107) mmol/L Carbon Dioxide (21-32) mmol/L Anion Gap (7-13) mEq/L BUN (7-18) mg/dL Creatinine (0.55-1.02) mg/dL Est Cr Clr Drug Dosing mL/min Estimated GFR (MDRD) BUN/Creatinine Ratio (No establ ref range) Glucose (70-99) mg/dL POC Glucose 91 137 H (70-99) mg/dL Calcium (8.5-10.1) mg/dL Total Bilirubin (0.2-1.0) mg/dL Direct Bilirubin (0.0-0.2) mg/dL AST (15-37) U/L ALT (14-59) U/L Alkaline Phosphatase (46-116) U/L Total Protein (6.4-8.2) g/dL Albumin (3.4-5.0) g/dL Globulin Albumin/Globulin Ratio 08/16/21 08/16/21 08/16/21 Range/Units 06:37 06:37 08:28 WBC 2.7 L (5.0-10.0) 10^3/uL RBC 3.40 L (4.2-5.4) 10^6/uL Hgb 10.6 L (12.0-16.0) g/dL Hct 32.5 L (37.0-47.0) % MCV 95.6 (80-100) fL MCH 31.2 (27.0-34.0) pg MCHC 32.6 L (33.0-35.0) g/dL Plt Count 109 L (150-450) 10^3/uL Neut % (Auto) 62.7 (42.2-75.2) % Lymph % (Auto) 32.0 (20.5-50.1) % [place] % (Auto) 4.9 (2-8) % Eos % (Auto) 0.0 L (1.0-3.0) % Baso % (Auto) 0.4 (0.0-1.0) % PT (9.0-12.0) SEC INR (0.9-1.2) Sodium 139 (136-145) mmol/L Potassium 3.7 (3.5-5.1) mmol/L Chloride 105 (98-107) mmol/L Carbon Dioxide 22 (21-32) mmol/L Anion Gap 15.7 H (7-13) mEq/L BUN 17 (7-18) mg/dL Creatinine 1.08 H (0.55-1.02) mg/dL Est Cr Clr Drug Dosing 36.32 mL/min Estimated GFR (MDRD) 48 BUN/Creatinine Ratio 15.7 (No establ ref range) Glucose 122 H (70-99) mg/dL POC Glucose 124 H (70-99) mg/dL Calcium 7.9 L (8.5-10.1) mg/dL Total Bilirubin 0.6 (0.2-1.0) mg/dL Direct Bilirubin 0.3 H (0.0-0.2) mg/dL AST 26 (15-37) U/L ALT 22 (14-59) U/L Alkaline Phosphatase 59 (46-116) U/L Total Protein 5.7 L (6.4-8.2) g/dL Albumin 2.8 L (3.4-5.0) g/dL Globulin 2.9 Albumin/Globulin Ratio 0.97 10/11/21 Range/Units 12:24 WBC (5.0-10.0) 10^3/uL RBC (4.2-5.4) 10^6/uL Hgb (12.0-16.0) g/dL Hct (37.0-47.0) % MCV (80-100) fL MCH (27.0-34.0) pg MCHC (33.0-35.0) g/dL Plt Count (150-450) 10^3/uL Neut % (Auto) (42.2-75.2) % Lymph % (Auto) (20.5-50.1) % [place] % (Auto) (2-8) % Eos % (Auto) (1.0-3.0) % Baso % (Auto) (0.0-1.0) % PT (9.0-12.0) SEC INR (0.9-1.2) Sodium (136-145) mmol/L Potassium (3.5-5.1) mmol/L Chloride (98-107) mmol/L Carbon Dioxide (21-32) mmol/L Anion Gap (7-13) mEq/L BUN (7-18) mg/dL Creatinine (0.55-1.02) mg/dL Est Cr Clr Drug Dosing mL/min Estimated GFR (MDRD) BUN/Creatinine Ratio (No establ ref range) Glucose (70-99) mg/dL POC Glucose 148 H (70-99) mg/dL Calcium (8.5-10.1) mg/dL Total Bilirubin (0.2-1.0) mg/dL Direct Bilirubin (0.0-0.2) mg/dL AST (15-37) U/L ALT (14-59) U/L Alkaline Phosphatase (46-116) U/L Total Protein (6.4-8.2) g/dL Albumin (3.4-5.0) g/dL Globulin Albumin/Globulin Ratio Christiano Results Last 24 Hours: Microbiology 08/15/21 09:35 Aerobic Blood Culture - Preliminary Blood - Venous - Lab Draw NO GROWTH AFTER 1 DAY Anaerobic Blood Culture - Preliminary NO GROWTH AFTER 1 DAY 08/15/21 08:29 Aerobic Blood Culture - Preliminary Blood - Venous - Iv Start NO GROWTH AFTER 1 DAY Anaerobic Blood Culture - Final Med Orders - Current: Current Medications Acetaminophen (Acetaminophen 500 Mg Tab) 500 mg PO Q6H PRN PRN Reason: Pain/Fever Albuterol (Albuterol 0.083% 2.5 Mg/3 Ml Neb Soln) 2.5 mg NEB Q2H PRN PRN Reason: shortness of breath/wheezing Albuterol/Ipratropium (Albuterol/Ipratropium 3.0-0.5 Mg/3 Ml Neb Soln) 3 ml NEB Q6H PRN PRN Reason: Dyspnea Carvedilol (Carvedilol 25 Mg Tab) 25 mg PO BID [facility] Last Admin: 08/16/21 08:36 Dose: 25 mg Documented by: Dexamethasone (Dexamethasone 4 Mg/Ml Sdv) 6 mg IVPUSH DAILY [facility] Last Admin: 08/16/21 08:31 Dose: 6 mg Documented by: Docusate Sodium (Docusate Sodium 100 Mg Cap) 100 mg PO BID PRN PRN Reason: Constipation Furosemide (Furosemide 20 Mg Tab) 20 mg PO BIDMEALS [facility] Last Admin: 08/16/21 08:31 Dose: 20 mg Documented by: Diltiazem HCl 125 mg/ Sodium (Chloride) 125 mls @ 10 mls/hr IV TITRATE [facility]; Protocol Last Admin: 08/16/21 06:19 Dose: 5 mg/hr, 5 mls/hr Documented by: Remdesivir 100 mg/ Sodium (Chloride) 100 mls @ 100 mls/hr IV Q24H [facility] Stop: 08/19/21 16:59 Piperacillin Sod/Tazobactam (Sod 3.375 gm/ Sodium Chloride) 100 mls @ 200 mls/hr IV Q6H [facility] Last Admin: 08/16/21 08:35 Dose: 200 mls/hr Documented by: Lorazepam (Lorazepam 0.5 Mg Tab) 0.5 mg PO Q6H PRN PRN Reason: Anxiety Last Admin: 08/15/21 21:19 Dose: 0.5 mg Documented by: Methylcellulose (Methylcellulose 500 Mg Tab) 1,000 mg PO DAILY [facility] Last Admin: 08/16/21 08:30 Dose: 1,000 mg Documented by: Omeprazole (Omeprazole 20 Mg Cap.Cr) 20 mg PO BID@0600,2100 [facility] Last Admin: 08/16/21 06:23 Dose: 20 mg Documented by: Ondansetron HCl (Ondansetron 4 Mg/2 Ml Sdv) 4 mg IVPUSH Q6H PRN PRN Reason: Nausea/Vomiting Potassium Chloride (Potassium Chloride 10 Meq Tab.Er) 10 meq PO DAILY [facility] Last Admin: 08/16/21 08:31 Dose: 10 meq Documented by: Sodium Chloride (Sodium Chloride 0.9% 10 Ml Syringe) 10 ml FLUSH ASDIRECTED PRN PRN Reason: Keep Vein Open Last Admin: 08/15/21 09:04 Dose: 10 ml Documented by: Vitamin E (Vitamin E (An-Dvvfw-Awyomjccfm Acetate) 400 Unit Cap) 400 units PO DAILY [facility] Last Admin: 08/16/21 08:31 Dose: 400 units Documented by: Warfarin Sodium (Pharmacy To Dose - Warfarin) 1 dose .XX ASDIRECTED [facility] Warfarin Sodium (Warfarin 1 Mg Tab) 0.5 mg PO ONETIME ONE Stop: 08/16/21 14:01 Discontinued Medications Albuterol/Ipratropium (Albuterol/Ipratropium 3.0-0.5 Mg/3 Ml Neb Soln) 3 ml NEB Q6H [facility] Last Admin: 08/15/21 15:12 Dose: Not Given Documented by: Diltiazem HCl (Diltiazem 25 Mg/5 Ml Sdv) 20 mg IVPUSH ONETIME ONE Stop: 08/15/21 08:49 Last Admin: 08/15/21 09:04 Dose: 20 mg Documented by: Remdesivir 200 mg/ Sodium (Chloride) 250 mls @ 250 mls/hr IV ONETIME ONE Stop: 08/15/21 16:59 Last Admin: 08/15/21 17:09 Dose: 250 mls/hr Documented by: Warfarin Sodium (Warfarin 2.5 Mg Tab) 2.5 mg PO DAILY@1400 [facility] Warfarin Sodium (Warfarin 2.5 Mg Tab) 2.5 mg PO ONETIME ONE Stop: 08/15/21 17:01 Last Admin: 08/15/21 17:17 Dose: 2.5 mg Documented by: - Exam Quality Assessment: Supplemental Oxygen General: Alert, Oriented Neck: No JVD Lungs: Clear to Auscultation Cardiovascular: Irregular Rhythm GI/Abdominal Exam: Soft, Non-Tender Extremities: No Pedal Edema Skin: Warm, Dry Neurological: Normal Gait (but slow) Psy/Mental Status: Alert, Normal Affect - Patient Data Lab Results Last 24 hrs: Laboratory Results - last 24 hr 08/15/21 08/15/21 08/16/21 Range/Units 17:07 21:08 06:37 WBC (5.0-10.0) 10^3/uL RBC (4.2-5.4) 10^6/uL Hgb (12.0-16.0) g/dL Hct (37.0-47.0) % MCV (80-100) fL MCH (27.0-34.0) pg MCHC (33.0-35.0) g/dL Plt Count (150-450) 10^3/uL Neut % (Auto) (42.2-75.2) % Lymph % (Auto) (20.5-50.1) % [place] % (Auto) (2-8) % Eos % (Auto) (1.0-3.0) % Baso % (Auto) (0.0-1.0) % PT 32.5 H (9.0-12.0) SEC INR 3.3 H (0.9-1.2) Sodium (136-145) mmol/L Potassium (3.5-5.1) mmol/L Chloride (98-107) mmol/L Carbon Dioxide (21-32) mmol/L Anion Gap (7-13) mEq/L BUN (7-18) mg/dL Creatinine (0.55-1.02) mg/dL Est Cr Clr Drug Dosing mL/min Estimated GFR (MDRD) BUN/Creatinine Ratio (No establ ref range) Glucose (70-99) mg/dL POC Glucose 91 137 H (70-99) mg/dL Calcium (8.5-10.1) mg/dL Total Bilirubin (0.2-1.0) mg/dL Direct Bilirubin (0.0-0.2) mg/dL AST (15-37) U/L ALT (14-59) U/L Alkaline Phosphatase (46-116) U/L Total Protein (6.4-8.2) g/dL Albumin (3.4-5.0) g/dL Globulin Albumin/Globulin Ratio 08/16/21 08/16/21 08/16/21 Range/Units 06:37 06:37 08:28 WBC 2.7 L (5.0-10.0) 10^3/uL RBC 3.40 L (4.2-5.4) 10^6/uL Hgb 10.6 L (12.0-16.0) g/dL Hct 32.5 L (37.0-47.0) % MCV 95.6 (80-100) fL MCH 31.2 (27.0-34.0) pg MCHC 32.6 L (33.0-35.0) g/dL Plt Count 109 L (150-450) 10^3/uL Neut % (Auto) 62.7 (42.2-75.2) % Lymph % (Auto) 32.0 (20.5-50.1) % [place] % (Auto) 4.9 (2-8) % Eos % (Auto) 0.0 L (1.0-3.0) % Baso % (Auto) 0.4 (0.0-1.0) % PT (9.0-12.0) SEC INR (0.9-1.2) Sodium 139 (136-145) mmol/L Potassium 3.7 (3.5-5.1) mmol/L Chloride 105 (98-107) mmol/L Carbon Dioxide 22 (21-32) mmol/L Anion Gap 15.7 H (7-13) mEq/L BUN 17 (7-18) mg/dL Creatinine 1.08 H (0.55-1.02) mg/dL Est Cr Clr Drug Dosing 36.32 mL/min Estimated GFR (MDRD) 48 BUN/Creatinine Ratio 15.7 (No establ ref range) Glucose 122 H (70-99) mg/dL POC Glucose 124 H (70-99) mg/dL Calcium 7.9 L (8.5-10.1) mg/dL Total Bilirubin 0.6 (0.2-1.0) mg/dL Direct Bilirubin 0.3 H (0.0-0.2) mg/dL AST 26 (15-37) U/L ALT 22 (14-59) U/L Alkaline Phosphatase 59 (46-116) U/L Total Protein 5.7 L (6.4-8.2) g/dL Albumin 2.8 L (3.4-5.0) g/dL Globulin 2.9 Albumin/Globulin Ratio 0.97 10/11/21 Range/Units 12:24 WBC (5.0-10.0) 10^3/uL RBC (4.2-5.4) 10^6/uL Hgb (12.0-16.0) g/dL Hct (37.0-47.0) % MCV (80-100) fL MCH (27.0-34.0) pg MCHC (33.0-35.0) g/dL Plt Count (150-450) 10^3/uL Neut % (Auto) (42.2-75.2) % Lymph % (Auto) (20.5-50.1) % [place] % (Auto) (2-8) % Eos % (Auto) (1.0-3.0) % Baso % (Auto) (0.0-1.0) % PT (9.0-12.0) SEC INR (0.9-1.2) Sodium (136-145) mmol/L Potassium (3.5-5.1) mmol/L Chloride (98-107) mmol/L Carbon Dioxide (21-32) mmol/L Anion Gap (7-13) mEq/L BUN (7-18) mg/dL Creatinine (0.55-1.02) mg/dL Est Cr Clr Drug Dosing mL/min Estimated GFR (MDRD) BUN/Creatinine Ratio (No establ ref range) Glucose (70-99) mg/dL POC Glucose 148 H (70-99) mg/dL Calcium (8.5-10.1) mg/dL Total Bilirubin (0.2-1.0) mg/dL Direct Bilirubin (0.0-0.2) mg/dL AST (15-37) U/L ALT (14-59) U/L Alkaline Phosphatase (46-116) U/L Total Protein (6.4-8.2) g/dL Albumin (3.4-5.0) g/dL Globulin Albumin/Globulin Ratio Result Diagrams: 08/16/21 06:37 08/16/21 06:37 [facility]o Results Last 24 hrs: Microbiology 08/15/21 09:35 Aerobic Blood Culture - Preliminary Blood - Venous - Lab Draw NO GROWTH AFTER 1 DAY Anaerobic Blood Culture - Preliminary NO GROWTH AFTER 1 DAY 08/15/21 08:29 Aerobic Blood Culture - Preliminary Blood - Venous - Iv Start NO GROWTH AFTER 1 DAY Anaerobic Blood Culture - Final Sepsis Event Note - Evaluation Sepsis Screening Result: Severe Sepsis Risk - Focused Exam Vital Signs: Vital Signs Temp Pulse Pulse Resp BP BP Pulse Ox 08/16/21 12:00 96.7 F L 98 22 H 105/62 94 L 08/16/21 08:36 73 116/74 08/16/21 08:00 97.0 F 73 22 H 105/62 93 L 08/16/21 04:00 97.2 F 83 21 H 102/63 96 - Problem List Review Problem List Initiated/Reviewed/Updated: No - My Orders Last 24 Hours: My Active Orders 08/15/21 13:00 Isolation [COMM] Routine 08/15/21 14:30 Blood Glucose Check, Bedside [RC] WITHMEALSANDBED Up With Assistance [RC] ASDIRECTED Up to Chair [RC] ASDIRECTED Respiratory Care Assess and Treatment [CONS] Routine Albuterol [Proventil Neb Soln] 2.5 mg NEB Q2H PRN Docusate Sodium [Colace] 100 mg PO BID PRN Ondansetron [Zofran] 4 mg IVPUSH Q6H PRN Resuscitation Status Routine 08/15/21 14:31 Cardiac Monitoring [RC] 08,20 Oxygen Therapy [RC] PRN VTE/DVT Education [RC] Vital Signs [RC] 00,04,08,12,16,20 08/15/21 14:33 RT Aerosol Therapy [RC] ASDIRECTED 08/15/21 14:35 LORazepam [Ativan] 0.5 mg PO Q6H PRN 08/15/21 14:44 Isolation [COMM] Stat 08/15/21 14:45 PROCALCITONIN [REF] Stat Pharmacy to Dose - Warfarin 1 dose .XX ASDIRECTED 08/15/21 15:00 Piperacillin/Tazobactam [Zosyn] 3.375 gm Sodium Chloride 0.9% [Normal Saline] 100 ml IV Q6H dexAMETHasone [Decadron] 6 mg IVPUSH DAILY 08/15/21 15:11 Albuterol/Ipratropium [DuoNeb 3.0-0.5 MG/3 ML] 3 ml NEB Q6H PRN 08/15/21 Dinner Heart Healthy Diet [DIET] 08/15/21 18:00 Furosemide [Lasix] 20 mg PO BIDMEALS 08/15/21 18:44 Acetaminophen [Tylenol Extra Strength] 500 mg PO Q6H PRN 08/15/21 21:00 Omeprazole 20 mg PO BID@0600,2100 carvediloL [Coreg] 25 mg PO BID 08/16/21 09:00 Methylcellulose [Citrucel] 1,000 mg PO DAILY Potassium Chloride [Klor-Con 10] 10 meq PO DAILY Vitamin E (dl, acetate) [Vitamin E] 400 units PO DAILY 08/16/21 14:00 Warfarin [Coumadin] 0.5 mg PO ONETIME ONE 08/16/21 16:00 Remdesivir 100 mg Sodium Chloride 0.9% [Normal Saline] 100 ml IV Q24H 08/17/21 05:11 BASIC METABOLIC PANEL,BMP [CHEM] AM CBC WITH AUTO DIFF [HEME] AM INR,PT,PROTHROMBIN TIME [COAG] AM PROCALCITONIN [REF] AM 08/17/21 14:45 BILIRUBIN DIRECT [CHEM] DAILY COMPREHENSIVE METABOLIC PN,CMP [CHEM] DAILY 08/18/21 05:11 BASIC METABOLIC PANEL,BMP [CHEM] AM CBC WITH AUTO DIFF [HEME] AM INR,PT,PROTHROMBIN TIME [COAG] AM 08/18/21 14:45 BILIRUBIN DIRECT [CHEM] DAILY COMPREHENSIVE METABOLIC PN,CMP [CHEM] DAILY 08/19/21 05:11 BASIC METABOLIC PANEL,BMP [CHEM] AM CBC WITH AUTO DIFF [HEME] AM INR,PT,PROTHROMBIN TIME [COAG] AM 08/19/21 14:45 BILIRUBIN DIRECT [CHEM] DAILY COMPREHENSIVE METABOLIC PN,CMP [CHEM] DAILY 08/20/21 05:11 BASIC METABOLIC PANEL,BMP [CHEM] AM CBC WITH AUTO DIFF [HEME] AM INR,PT,PROTHROMBIN TIME [COAG] AM 08/20/21 14:45 BILIRUBIN DIRECT [CHEM] DAILY COMPREHENSIVE METABOLIC PN,CMP [CHEM] DAILY 08/21/21 05:11 BASIC METABOLIC PANEL,BMP [CHEM] AM CBC WITH AUTO DIFF [HEME] AM INR,PT,PROTHROMBIN TIME [COAG] AM 08/22/21 05:11 BASIC METABOLIC PANEL,BMP [CHEM] AM CBC WITH AUTO DIFF [HEME] AM INR,PT,PROTHROMBIN TIME [COAG] AM - Plan Plan:: COVID pneumonia, test was done on Aug 13. ? vaccination status. hypoxia: improving . Pulse ox mostly ~93 Remdesivir, Dexamethasone, Zosyn. AFib with RVR: rate is controlled now. Diltiazem drip: DC and start Cardizem PO. 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 Pharmacy to dose H/o CHF per records: continue home medications including Lasix. w ll try to obtain the report of her recent. Full code as per pt request,
[2021-08-16] MEDS: REMDESIVIR 100 MG in Sodium Chloride 0.9% 100 ML IV SCH ×2 (14:57→15:32)
[2021-08-16] MEDS ORDERED: Diltiazem IR 30 MG Tab PO SCH (21:00)
[2021-08-16] MEDS: LORazepam 0.5 MG Tab PO PRN (21:40)
[2021-08-16] MEDS ORDERED: Sodium Chloride 0.9% 1,000 ML IV SCH (23:45)
[2021-08-17] MEDS: Diltiazem 125 MG in Sodium Chloride 0.9% 100 ML IV SCH ×2 (00:06→06:14)
[2021-08-17] MEDS: Piperacillin/Tazobactam 3.375 GM in Sodium Chloride 0.9% 100 ML IV SCH ×4 (03:09→20:42)
[2021-08-17] MEDS: Omeprazole 20 MG Cap.CR PO SCH ×2 (06:19→20:40)
[2021-08-17 07:22] LABS: ANION GAP 14.7 mEq/L (7-13)
[2021-08-17] MEDS: Furosemide 20 MG Tab PO SCH ×2 (08:26→17:08)
[2021-08-17] MEDS: Vitamin E (dl-alpha-tocopherol acetate) 400 Unit Cap PO SCH (08:26)
[2021-08-17] MEDS: Potassium Chloride 10 MEQ Tab.ER PO SCH (08:26)
[2021-08-17] MEDS: Carvedilol 25 MG Tab PO SCH ×2 (08:29→20:41)
[2021-08-17] MEDS: Dexamethasone 4 MG/ML SDV IVPUSH SCH (08:30)
[2021-08-17] MEDS: Albuterol/Ipratropium 3.0-0.5 MG/3 ML Neb Soln NEB PRN (09:11)
--- NOTE | 2021-08-17 10:11 | CR ---
PROCEDURE INFORMATION: Exam: XR Chest Exam date and time: 08/17/2021 9:31 AM Age: 86 years old Clinical indication: Other: Fluid overload TECHNIQUE: Imaging protocol: XR of the chest. Views: 1 view. COMPARISON: CT Chest wo Cont 08/15/2021 9:43 AM FINDINGS: Lungs: Bilateral central and lower lobe ground-glass infiltrates. Pleural spaces: Bilateral small pleural effusions. Heart/Mediastinum: Atherosclerotic calcification aorta. Mild cardiomegaly. Bones/joints: Mild thoracic degenerative disease. Bilateral acromioclavicular arthropathy. IMPRESSION: 1. Bilateral central and lower lobe ground-glass infiltrates compatible with pneumonitis. 2. Bilateral pleural effusions. Correlate for fluid overload. 3. Mild cardiomegaly.
--- NOTE | 2021-08-17 10:30 | PCM.PN ---
- General Info Date of Service: 08/17/21 Subjective Update: reports more SOB today, reports more SOB. - Review of Systems General: Denies: Fever Pulmonary: Reports: Shortness of Breath, Wheezing Cardiovascular: Denies: Chest Pain, Palpitations Gastrointestinal: Denies: Abdominal Pain Neurological: Denies: Confusion Psychiatric: Denies: Confusion - Patient Data Vitals - Most Recent: Last Vital Signs Temp 98.3 F 08/17/21 08:00 Pulse 72 08/17/21 09:12 Resp 22 H 08/17/21 08:00 BP 108/72 08/17/21 08:29 Pulse Ox 95 08/17/21 09:12 Weight - Most Recent: 144 lb I&O - Last 24 Hours: Intake & Output 08/16/21 08/17/21 08/17/21 22:59 06:59 14:59 Intake Total 560 400 Output Total 300 350 Balance 260 50 Lab Results Last 24 Hours: Laboratory Results - last 24 hr 08/16/21 08/16/21 08/16/21 Range/Units 06:37 12:24 16:41 WBC (5.0-10.0) 10^3/uL RBC (4.2-5.4) 10^6/uL Hgb (12.0-16.0) g/dL Hct (37.0-47.0) % MCV (80-100) fL MCH (27.0-34.0) pg MCHC (33.0-35.0) g/dL Plt Count (150-450) 10^3/uL Neut % (Auto) (42.2-75.2) % Lymph % (Auto) (20.5-50.1) % Coffee % (Auto) (2-8) % Eos % (Auto) (1.0-3.0) % Baso % (Auto) (0.0-1.0) % PT (9.0-12.0) SEC INR (0.9-1.2) Sodium (136-145) mmol/L Potassium (3.5-5.1) mmol/L Chloride (98-107) mmol/L Carbon Dioxide (21-32) mmol/L Anion Gap (7-13) mEq/L BUN (7-18) mg/dL Creatinine (0.55-1.02) mg/dL Est Cr Clr Drug Dosing mL/min Estimated GFR (MDRD) BUN/Creatinine Ratio (No establ ref range) Glucose (70-99) mg/dL POC Glucose 148 H 152 H (70-99) mg/dL Calcium (8.5-10.1) mg/dL Total Bilirubin (0.2-1.0) mg/dL Direct Bilirubin (0.0-0.2) mg/dL AST (15-37) U/L ALT (14-59) U/L Alkaline Phosphatase (46-116) U/L Total Protein (6.4-8.2) g/dL Albumin (3.4-5.0) g/dL Globulin Albumin/Globulin Ratio Procalcitonin 0.09 ng/mL 08/16/21 08/17/21 08/17/21 Range/Units 21:36 06:37 06:37 WBC 5.1 (5.0-10.0) 10^3/uL RBC 3.66 L (4.2-5.4) 10^6/uL Hgb 11.2 L (12.0-16.0) g/dL Hct 34.4 L (37.0-47.0) % MCV 94.0 (80-100) fL MCH 30.6 (27.0-34.0) pg MCHC 32.6 L (33.0-35.0) g/dL Plt Count 111 L (150-450) 10^3/uL Neut % (Auto) 76.8 H (42.2-75.2) % Lymph % (Auto) 16.3 L (20.5-50.1) % Coffee % (Auto) 6.7 (2-8) % Eos % (Auto) 0.0 L (1.0-3.0) % Baso % (Auto) 0.2 (0.0-1.0) % PT 35.1 H (9.0-12.0) SEC INR 3.6 H (0.9-1.2) Sodium (136-145) mmol/L Potassium (3.5-5.1) mmol/L Chloride (98-107) mmol/L Carbon Dioxide (21-32) mmol/L Anion Gap (7-13) mEq/L BUN (7-18) mg/dL Creatinine (0.55-1.02) mg/dL Est Cr Clr Drug Dosing mL/min Estimated GFR (MDRD) BUN/Creatinine Ratio (No establ ref range) Glucose (70-99) mg/dL POC Glucose 154 H (70-99) mg/dL Calcium (8.5-10.1) mg/dL Total Bilirubin (0.2-1.0) mg/dL Direct Bilirubin (0.0-0.2) mg/dL AST (15-37) U/L ALT (14-59) U/L Alkaline Phosphatase (46-116) U/L Total Protein (6.4-8.2) g/dL Albumin (3.4-5.0) g/dL Globulin Albumin/Globulin Ratio Procalcitonin ng/mL 08/17/21 08/17/21 Range/Units 06:37 08:28 WBC (5.0-10.0) 10^3/uL RBC (4.2-5.4) 10^6/uL Hgb (12.0-16.0) g/dL Hct (37.0-47.0) % MCV (80-100) fL MCH (27.0-34.0) pg MCHC (33.0-35.0) g/dL Plt Count (150-450) 10^3/uL Neut % (Auto) (42.2-75.2) % Lymph % (Auto) (20.5-50.1) % Coffee % (Auto) (2-8) % Eos % (Auto) (1.0-3.0) % Baso % (Auto) (0.0-1.0) % PT (9.0-12.0) SEC INR (0.9-1.2) Sodium 139 (136-145) mmol/L Potassium 3.7 (3.5-5.1) mmol/L Chloride 106 (98-107) mmol/L Carbon Dioxide 22 (21-32) mmol/L Anion Gap 14.7 H (7-13) mEq/L BUN 22 H (7-18) mg/dL Creatinine 1.13 H (0.55-1.02) mg/dL Est Cr Clr Drug Dosing 34.71 mL/min Estimated GFR (MDRD) 45 BUN/Creatinine Ratio 19.5 (No establ ref range) Glucose 134 H (70-99) mg/dL POC Glucose 124 H (70-99) mg/dL Calcium 7.8 L (8.5-10.1) mg/dL Total Bilirubin 0.6 (0.2-1.0) mg/dL Direct Bilirubin 0.3 H (0.0-0.2) mg/dL AST 31 (15-37) U/L ALT 25 (14-59) U/L Alkaline Phosphatase 52 (46-116) U/L Total Protein 5.7 L (6.4-8.2) g/dL Albumin 2.8 L (3.4-5.0) g/dL Globulin 2.9 Albumin/Globulin Ratio 0.97 Procalcitonin ng/mL [facility] Results Last 24 Hours: Microbiology 08/15/21 09:35 Aerobic Blood Culture - Preliminary Blood - Venous - Lab Draw NO GROWTH AFTER 2 DAYS Anaerobic Blood Culture - Preliminary NO GROWTH AFTER 2 DAYS 08/15/21 08:29 Aerobic Blood Culture - Preliminary Blood - Venous - Iv Start NO GROWTH AFTER 2 DAYS Anaerobic Blood Culture - Final Med Orders - Current: Current Medications Acetaminophen (Acetaminophen 500 Mg Tab) 500 mg PO Q6H PRN PRN Reason: Pain/Fever Albuterol (Albuterol 0.083% 2.5 Mg/3 Ml Neb Soln) 2.5 mg NEB Q2H PRN PRN Reason: shortness of breath/wheezing Albuterol/Ipratropium (Albuterol/Ipratropium 3.0-0.5 Mg/3 Ml Neb Soln) 3 ml NEB Q6H PRN PRN Reason: Dyspnea Last Admin: 08/17/21 09:11 Dose: 3 ml Documented by: Carvedilol (Carvedilol 25 Mg Tab) 25 mg PO BID [facility] Last Admin: 08/17/21 08:29 Dose: 25 mg Documented by: Dexamethasone (Dexamethasone 4 Mg/Ml Sdv) 6 mg IVPUSH DAILY [facility] Last Admin: 08/17/21 08:30 Dose: 6 mg Documented by: Docusate Sodium (Docusate Sodium 100 Mg Cap) 100 mg PO BID PRN PRN Reason: Constipation Furosemide (Furosemide 20 Mg Tab) 20 mg PO BIDMEALS [facility] Last Admin: 08/17/21 08:26 Dose: 20 mg Documented by: Remdesivir 100 mg/ Sodium (Chloride) 100 mls @ 100 mls/hr IV Q24H [facility] Stop: 08/19/21 16:59 Last Infusion: 08/16/21 16:15 Dose: Infused Documented by: Piperacillin Sod/Tazobactam (Sod 3.375 gm/ Sodium Chloride) 100 mls @ 200 mls/hr IV Q6H [facility] Last Admin: 08/17/21 09:30 Dose: 200 mls/hr Documented by: Diltiazem HCl 125 mg/ Sodium (Chloride) 125 mls @ 5 mls/hr IV TITRATE [facility]; Protocol Last Admin: 08/17/21 06:14 Dose: 5 mg/hr, 5 mls/hr Documented by: Sodium Chloride (Normal Saline) 1,000 mls @ 60 mls/hr IV ASDIRECTED [facility] Last Infusion: 08/17/21 09:44 Dose: 10 mls/hr Documented by: Lorazepam (Lorazepam 0.5 Mg Tab) 0.5 mg PO Q6H PRN PRN Reason: Anxiety Last Admin: 08/16/21 21:40 Dose: 0.5 mg Documented by: Methylcellulose (Methylcellulose 500 Mg Tab) 1,000 mg PO DAILY [facility] Last Admin: 08/17/21 08:26 Dose: 1,000 mg Documented by: Omeprazole (Omeprazole 20 Mg Cap.Cr) 20 mg PO BID@0600,2100 [facility] Last Admin: 08/17/21 06:19 Dose: 20 mg Documented by: Ondansetron HCl (Ondansetron 4 Mg/2 Ml Sdv) 4 mg IVPUSH Q6H PRN PRN Reason: Nausea/Vomiting Potassium Chloride (Potassium Chloride 10 Meq Tab.Er) 10 meq PO DAILY [facility] Last Admin: 08/17/21 08:26 Dose: 10 meq Documented by: Sodium Chloride (Sodium Chloride 0.9% 10 Ml Syringe) 10 ml FLUSH ASDIRECTED PRN PRN Reason: Keep Vein Open Last Admin: 08/15/21 09:04 Dose: 10 ml Documented by: Vitamin E (Vitamin E (Wr-Hejtb-Cupkuinmdj Acetate) 400 Unit Cap) 400 units PO DAILY [facility] Last Admin: 08/17/21 08:26 Dose: 400 units Documented by: Warfarin Sodium (Pharmacy To Dose - Warfarin) 1 dose .XX ASDIRECTED [facility] Discontinued Medications Albuterol/Ipratropium (Albuterol/Ipratropium 3.0-0.5 Mg/3 Ml Neb Soln) 3 ml NEB Q6H [facility] Last Admin: 08/15/21 15:12 Dose: Not Given Documented by: Diltiazem HCl (Diltiazem 25 Mg/5 Ml Sdv) 20 mg IVPUSH ONETIME ONE Stop: 08/15/21 08:49 Last Admin: 08/15/21 09:04 Dose: 20 mg Documented by: Diltiazem HCl (Diltiazem Ir 30 Mg Tab) 30 mg PO Q12HR [facility] Diltiazem HCl 125 mg/ Sodium (Chloride) 125 mls @ 10 mls/hr IV TITRATE [facility]; Protocol Last Admin: 08/16/21 06:19 Dose: 5 mg/hr, 5 mls/hr Documented by: Remdesivir 200 mg/ Sodium (Chloride) 250 mls @ 250 mls/hr IV ONETIME ONE Stop: 08/15/21 16:59 Last Admin: 08/15/21 17:09 Dose: 250 mls/hr Documented by: Warfarin Sodium (Warfarin 2.5 Mg Tab) 2.5 mg PO DAILY@1400 [facility] Warfarin Sodium (Warfarin 2.5 Mg Tab) 2.5 mg PO ONETIME ONE Stop: 08/15/21 17:01 Last Admin: 08/15/21 17:17 Dose: 2.5 mg Documented by: Warfarin Sodium (Warfarin 1 Mg Tab) 0.5 mg PO ONETIME ONE Stop: 08/16/21 14:01 Last Admin: 08/16/21 14:56 Dose: 0.5 mg Documented by: - Exam Quality Assessment: Supplemental Oxygen (1 L) General: Alert, Oriented, Mild Distress HEENT: EOMI Lungs: Wheezing Cardiovascular: Regular Rhythm GI/Abdominal Exam: Soft Extremities: Normal Inspection, No Pedal Edema Skin: Dry Neurological: No New Focal Deficit Psy/Mental Status: Alert, Normal Affect - Patient Data Lab Results Last 24 hrs: Laboratory Results - last 24 hr 08/16/21 08/16/21 08/16/21 Range/Units 06:37 12:24 16:41 WBC (5.0-10.0) 10^3/uL RBC (4.2-5.4) 10^6/uL Hgb (12.0-16.0) g/dL Hct (37.0-47.0) % MCV (80-100) fL MCH (27.0-34.0) pg MCHC (33.0-35.0) g/dL Plt Count (150-450) 10^3/uL Neut % (Auto) (42.2-75.2) % Lymph % (Auto) (20.5-50.1) % Coffee % (Auto) (2-8) % Eos % (Auto) (1.0-3.0) % Baso % (Auto) (0.0-1.0) % PT (9.0-12.0) SEC INR (0.9-1.2) Sodium (136-145) mmol/L Potassium (3.5-5.1) mmol/L Chloride (98-107) mmol/L Carbon Dioxide (21-32) mmol/L Anion Gap (7-13) mEq/L BUN (7-18) mg/dL Creatinine (0.55-1.02) mg/dL Est Cr Clr Drug Dosing mL/min Estimated GFR (MDRD) BUN/Creatinine Ratio (No establ ref range) Glucose (70-99) mg/dL POC Glucose 148 H 152 H (70-99) mg/dL Calcium (8.5-10.1) mg/dL Total Bilirubin (0.2-1.0) mg/dL Direct Bilirubin (0.0-0.2) mg/dL AST (15-37) U/L ALT (14-59) U/L Alkaline Phosphatase (46-116) U/L Total Protein (6.4-8.2) g/dL Albumin (3.4-5.0) g/dL Globulin Albumin/Globulin Ratio Procalcitonin 0.09 ng/mL 08/16/21 08/17/21 08/17/21 Range/Units 21:36 06:37 06:37 WBC 5.1 (5.0-10.0) 10^3/uL RBC 3.66 L (4.2-5.4) 10^6/uL Hgb 11.2 L (12.0-16.0) g/dL Hct 34.4 L (37.0-47.0) % MCV 94.0 (80-100) fL MCH 30.6 (27.0-34.0) pg MCHC 32.6 L (33.0-35.0) g/dL Plt Count 111 L (150-450) 10^3/uL Neut % (Auto) 76.8 H (42.2-75.2) % Lymph % (Auto) 16.3 L (20.5-50.1) % Coffee % (Auto) 6.7 (2-8) % Eos % (Auto) 0.0 L (1.0-3.0) % Baso % (Auto) 0.2 (0.0-1.0) % PT 35.1 H (9.0-12.0) SEC INR 3.6 H (0.9-1.2) Sodium (136-145) mmol/L Potassium (3.5-5.1) mmol/L Chloride (98-107) mmol/L Carbon Dioxide (21-32) mmol/L Anion Gap (7-13) mEq/L BUN (7-18) mg/dL Creatinine (0.55-1.02) mg/dL Est Cr Clr Drug Dosing mL/min Estimated GFR (MDRD) BUN/Creatinine Ratio (No establ ref range) Glucose (70-99) mg/dL POC Glucose 154 H (70-99) mg/dL Calcium (8.5-10.1) mg/dL Total Bilirubin (0.2-1.0) mg/dL Direct Bilirubin (0.0-0.2) mg/dL AST (15-37) U/L ALT (14-59) U/L Alkaline Phosphatase (46-116) U/L Total Protein (6.4-8.2) g/dL Albumin (3.4-5.0) g/dL Globulin Albumin/Globulin Ratio Procalcitonin ng/mL 08/17/21 08/17/21 Range/Units 06:37 08:28 WBC (5.0-10.0) 10^3/uL RBC (4.2-5.4) 10^6/uL Hgb (12.0-16.0) g/dL Hct (37.0-47.0) % MCV (80-100) fL MCH (27.0-34.0) pg MCHC (33.0-35.0) g/dL Plt Count (150-450) 10^3/uL Neut % (Auto) (42.2-75.2) % Lymph % (Auto) (20.5-50.1) % Coffee % (Auto) (2-8) % Eos % (Auto) (1.0-3.0) % Baso % (Auto) (0.0-1.0) % PT (9.0-12.0) SEC INR (0.9-1.2) Sodium 139 (136-145) mmol/L Potassium 3.7 (3.5-5.1) mmol/L Chloride 106 (98-107) mmol/L Carbon Dioxide 22 (21-32) mmol/L Anion Gap 14.7 H (7-13) mEq/L BUN 22 H (7-18) mg/dL Creatinine 1.13 H (0.55-1.02) mg/dL Est Cr Clr Drug Dosing 34.71 mL/min Estimated GFR (MDRD) 45 BUN/Creatinine Ratio 19.5 (No establ ref range) Glucose 134 H (70-99) mg/dL POC Glucose 124 H (70-99) mg/dL Calcium 7.8 L (8.5-10.1) mg/dL Total Bilirubin 0.6 (0.2-1.0) mg/dL Direct Bilirubin 0.3 H (0.0-0.2) mg/dL AST 31 (15-37) U/L ALT 25 (14-59) U/L Alkaline Phosphatase 52 (46-116) U/L Total Protein 5.7 L (6.4-8.2) g/dL Albumin 2.8 L (3.4-5.0) g/dL Globulin 2.9 Albumin/Globulin Ratio 0.97 Procalcitonin ng/mL Result Diagrams: 08/17/21 06:37 08/17/21 06:37 [facility] Results Last 24 hrs: Microbiology 08/15/21 09:35 Aerobic Blood Culture - Preliminary Blood - Venous - Lab Draw NO GROWTH AFTER 2 DAYS Anaerobic Blood Culture - Preliminary NO GROWTH AFTER 2 DAYS 08/15/21 08:29 Aerobic Blood Culture - Preliminary Blood - Venous - Iv Start NO GROWTH AFTER 2 DAYS Anaerobic Blood Culture - Final Sepsis Event Note - Evaluation Sepsis Screening Result: Severe Sepsis Risk - Focused Exam Vital Signs: Vital Signs Temp Pulse Pulse Resp BP BP Pulse Ox 08/17/21 09:12 72 08/17/21 08:29 88 108/72 08/17/21 08:00 98.3 F 72 22 H 107/58 L 95 10/12/21 04:00 95 21 H 112/79 96 08/17/21 00:00 112 H 21 H 108/79 90 L Pulse Ox 08/17/21 09:12 95 08/17/21 08:29 08/17/21 08:00 08/17/21 04:00 08/17/21 00:00 - Problem List Review Problem List Initiated/Reviewed/Updated: No - My Orders Last 24 Hours: My Active Orders 08/16/21 16:00 Remdesivir 100 mg Sodium Chloride 0.9% [Normal Saline] 100 ml IV Q24H 08/16/21 23:45 Diltiazem 125 mg Sodium Chloride 0.9% [Normal Saline] 100 ml IV TITRATE Sodium Chloride 0.9% [Normal Saline] 1,000 ml IV ASDIRECTED 08/17/21 06:37 PROCALCITONIN [REF] AM 08/18/21 05:11 BASIC METABOLIC PANEL,BMP [CHEM] AM CBC WITH AUTO DIFF [HEME] AM INR,PT,PROTHROMBIN TIME [COAG] AM 08/18/21 14:45 BILIRUBIN DIRECT [CHEM] DAILY COMPREHENSIVE METABOLIC PN,CMP [CHEM] DAILY 08/19/21 05:11 BASIC METABOLIC PANEL,BMP [CHEM] AM CBC WITH AUTO DIFF [HEME] AM INR,PT,PROTHROMBIN TIME [COAG] AM 08/19/21 14:45 BILIRUBIN DIRECT [CHEM] DAILY COMPREHENSIVE METABOLIC PN,CMP [CHEM] DAILY 08/20/21 05:11 BASIC METABOLIC PANEL,BMP [CHEM] AM CBC WITH AUTO DIFF [HEME] AM INR,PT,PROTHROMBIN TIME [COAG] AM 08/20/21 14:45 BILIRUBIN DIRECT [CHEM] DAILY COMPREHENSIVE METABOLIC PN,CMP [CHEM] DAILY 08/21/21 05:11 BASIC METABOLIC PANEL,BMP [CHEM] AM CBC WITH AUTO DIFF [HEME] AM INR,PT,PROTHROMBIN TIME [COAG] AM 08/22/21 05:11 BASIC METABOLIC PANEL,BMP [CHEM] AM CBC WITH AUTO DIFF [HEME] AM INR,PT,PROTHROMBIN TIME [COAG] AM - Plan Plan:: COVID pneumonia, test was done on Aug 13. ? vaccination status. hypoxia: on 1 L . Pulse ox mostly ~95 Remdesivir, Dexamethasone, Zosyn. Her Procalcitonin came back 0.09 AFib with RVR: had an episode of RVR night and was restarted on Cardizem drip and IVF. rate is controlled now. COntinue with Diltiazem drip: for now. Cardizem PO. Continue with home medications CXR from today showed + infiltrates and B pleural effusion: DC IVF h/o PE: On warfarin. Pharmacy to dose H/o CHF per records: continue home medications including Lasix. w ll try to obtain the report of her recent. Full code as per pt request,
[2021-08-17] MEDS: REMDESIVIR 100 MG in Sodium Chloride 0.9% 100 ML IV SCH (15:30)
[2021-08-17] MEDS: LORazepam 0.5 MG Tab PO PRN (20:40)
[2021-08-18] MEDS: Piperacillin/Tazobactam 3.375 GM in Sodium Chloride 0.9% 100 ML IV SCH ×4 (03:09→20:25)
[2021-08-18] MEDS: Omeprazole 20 MG Cap.CR PO SCH ×2 (05:35→20:24)
[2021-08-18 07:06] LABS: ANION GAP 15.6 mEq/L (7-13)
[2021-08-18] MEDS: Carvedilol 25 MG Tab PO SCH ×2 (09:02→20:24)
[2021-08-18] MEDS: Potassium Chloride 10 MEQ Tab.ER PO SCH (09:02)
[2021-08-18] MEDS: Vitamin E (dl-alpha-tocopherol acetate) 400 Unit Cap PO SCH (09:02)
[2021-08-18] MEDS: Furosemide 20 MG Tab PO SCH ×2 (09:03→17:07)
[2021-08-18] MEDS: Dexamethasone 4 MG/ML SDV IVPUSH SCH (09:04)
--- NOTE | 2021-08-18 11:25 | PCM.PN ---
- General Info Date of Service: 08/18/21 Functional Status: Reports: Pain Controlled, Tolerating Diet - Review of Systems General: Denies: Fever Pulmonary: Denies: Shortness of Breath Gastrointestinal: Denies: Abdominal Pain Neurological: Denies: Confusion Psychiatric: Denies: Confusion - Patient Data Vitals - Most Recent: Last Vital Signs Temp 98.0 F 08/18/21 08:00 Pulse 107 H 08/18/21 09:02 Resp 22 H 08/18/21 08:00 BP 109/77 08/18/21 09:02 Pulse Ox 96 08/18/21 08:00 Weight - Most Recent: 144 lb I&O - Last 24 Hours: Intake & Output 08/17/21 08/18/21 08/18/21 22:59 06:59 14:59 Intake Total 700 100 400 Balance 700 100 400 Lab Results Last 24 Hours: Laboratory Results - last 24 hr 08/17/21 08/17/21 08/17/21 Range/Units 06:37 11:27 17:00 WBC (5.0-10.0) 10^3/uL RBC (4.2-5.4) 10^6/uL Hgb (12.0-16.0) g/dL Hct (37.0-47.0) % MCV (80-100) fL MCH (27.0-34.0) pg MCHC (33.0-35.0) g/dL Plt Count (150-450) 10^3/uL Neut % (Auto) (42.2-75.2) % Lymph % (Auto) (20.5-50.1) % [place] % (Auto) (2-8) % Eos % (Auto) (1.0-3.0) % Baso % (Auto) (0.0-1.0) % PT (9.0-12.0) SEC INR (0.9-1.2) Sodium (136-145) mmol/L Potassium (3.5-5.1) mmol/L Chloride (98-107) mmol/L Carbon Dioxide (21-32) mmol/L Anion Gap (7-13) mEq/L BUN (7-18) mg/dL Creatinine (0.55-1.02) mg/dL Est Cr Clr Drug Dosing mL/min Estimated GFR (MDRD) BUN/Creatinine Ratio (No establ ref range) Glucose (70-99) mg/dL POC Glucose 113 H 137 H (70-99) mg/dL Calcium (8.5-10.1) mg/dL Total Bilirubin (0.2-1.0) mg/dL Direct Bilirubin (0.0-0.2) mg/dL AST (15-37) U/L ALT (14-59) U/L Alkaline Phosphatase (46-116) U/L Total Protein (6.4-8.2) g/dL Albumin (3.4-5.0) g/dL Globulin Albumin/Globulin Ratio Procalcitonin 0.10 H ng/mL 08/18/21 08/18/21 08/18/21 Range/Units 06:20 06:20 06:20 WBC 5.9 (5.0-10.0) 10^3/uL RBC 3.92 L (4.2-5.4) 10^6/uL Hgb 12.1 (12.0-16.0) g/dL Hct 36.8 L (37.0-47.0) % MCV 93.9 (80-100) fL MCH 30.9 (27.0-34.0) pg MCHC 32.9 L (33.0-35.0) g/dL Plt Count 110 L (150-450) 10^3/uL Neut % (Auto) 79.6 H (42.2-75.2) % Lymph % (Auto) 14.3 L (20.5-50.1) % [place] % (Auto) 6.1 (2-8) % Eos % (Auto) 0.0 L (1.0-3.0) % Baso % (Auto) 0.0 (0.0-1.0) % PT 28.3 H (9.0-12.0) SEC INR 2.9 H (0.9-1.2) Sodium 140 (136-145) mmol/L Potassium 3.6 (3.5-5.1) mmol/L Chloride 105 (98-107) mmol/L Carbon Dioxide 23 (21-32) mmol/L Anion Gap 15.6 H (7-13) mEq/L BUN 29 H (7-18) mg/dL Creatinine 1.26 H (0.55-1.02) mg/dL Est Cr Clr Drug Dosing 31.13 mL/min Estimated GFR (MDRD) 40 BUN/Creatinine Ratio 23.0 (No establ ref range) Glucose 124 H (70-99) mg/dL POC Glucose (70-99) mg/dL Calcium 7.9 L (8.5-10.1) mg/dL Total Bilirubin 0.6 (0.2-1.0) mg/dL Direct Bilirubin 0.4 H (0.0-0.2) mg/dL AST 34 (15-37) U/L ALT 31 (14-59) U/L Alkaline Phosphatase 50 (46-116) U/L Total Protein 5.8 L (6.4-8.2) g/dL Albumin 2.8 L (3.4-5.0) g/dL Globulin 3.0 Albumin/Globulin Ratio 0.93 Procalcitonin ng/mL 08/18/21 08/18/21 Range/Units 08:10 08:46 WBC (5.0-10.0) 10^3/uL RBC (4.2-5.4) 10^6/uL Hgb (12.0-16.0) g/dL Hct (37.0-47.0) % MCV (80-100) fL MCH (27.0-34.0) pg MCHC (33.0-35.0) g/dL Plt Count (150-450) 10^3/uL Neut % (Auto) (42.2-75.2) % Lymph % (Auto) (20.5-50.1) % [place] % (Auto) (2-8) % Eos % (Auto) (1.0-3.0) % Baso % (Auto) (0.0-1.0) % PT (9.0-12.0) SEC INR (0.9-1.2) Sodium (136-145) mmol/L Potassium (3.5-5.1) mmol/L Chloride (98-107) mmol/L Carbon Dioxide (21-32) mmol/L Anion Gap (7-13) mEq/L BUN (7-18) mg/dL Creatinine (0.55-1.02) mg/dL Est Cr Clr Drug Dosing mL/min Estimated GFR (MDRD) BUN/Creatinine Ratio (No establ ref range) Glucose (70-99) mg/dL POC Glucose 116 H 117 H (70-99) mg/dL Calcium (8.5-10.1) mg/dL Total Bilirubin (0.2-1.0) mg/dL Direct Bilirubin (0.0-0.2) mg/dL AST (15-37) U/L ALT (14-59) U/L Alkaline Phosphatase (46-116) U/L Total Protein (6.4-8.2) g/dL Albumin (3.4-5.0) g/dL Globulin Albumin/Globulin Ratio Procalcitonin ng/mL [facility] Results Last 24 Hours: Microbiology 08/15/21 09:35 Aerobic Blood Culture - Preliminary Blood - Venous - Lab Draw NO GROWTH AFTER 3 DAYS Anaerobic Blood Culture - Preliminary NO GROWTH AFTER 3 DAYS 08/15/21 08:29 Aerobic Blood Culture - Preliminary Blood - Venous - Iv Start NO GROWTH AFTER 3 DAYS Anaerobic Blood Culture - Final Med Orders - Current: Current Medications Acetaminophen (Acetaminophen 500 Mg Tab) 500 mg PO Q6H PRN PRN Reason: Pain/Fever Albuterol (Albuterol 0.083% 2.5 Mg/3 Ml Neb Soln) 2.5 mg NEB Q2H PRN PRN Reason: shortness of breath/wheezing Albuterol/Ipratropium (Albuterol/Ipratropium 3.0-0.5 Mg/3 Ml Neb Soln) 3 ml NEB Q6H PRN PRN Reason: Dyspnea Last Admin: 08/17/21 09:11 Dose: 3 ml Documented by: Carvedilol (Carvedilol 25 Mg Tab) 25 mg PO BID [facility] Last Admin: 08/18/21 09:02 Dose: 25 mg Documented by: Dexamethasone (Dexamethasone 4 Mg/Ml Sdv) 6 mg IVPUSH DAILY [facility] Last Admin: 08/18/21 09:04 Dose: 6 mg Documented by: Docusate Sodium (Docusate Sodium 100 Mg Cap) 100 mg PO BID PRN PRN Reason: Constipation Furosemide (Furosemide 20 Mg Tab) 20 mg PO BIDMEALS [facility] Last Admin: 08/18/21 09:03 Dose: 20 mg Documented by: Remdesivir 100 mg/ Sodium (Chloride) 100 mls @ 100 mls/hr IV Q24H [facility] Stop: 08/19/21 16:59 Last Infusion: 08/17/21 17:04 Dose: Infused Documented by: Piperacillin Sod/Tazobactam (Sod 3.375 gm/ Sodium Chloride) 100 mls @ 200 mls/hr IV Q6H [facility] Last Admin: 08/18/21 09:09 Dose: 200 mls/hr Documented by: Sodium Chloride (Normal Saline) 1,000 mls @ 60 mls/hr IV ASDIRECTED [facility] Last Infusion: 08/17/21 09:44 Dose: 10 mls/hr Documented by: Lorazepam (Lorazepam 0.5 Mg Tab) 0.5 mg PO Q6H PRN PRN Reason: Anxiety Last Admin: 08/17/21 20:40 Dose: 0.5 mg Documented by: Methylcellulose (Methylcellulose 500 Mg Tab) 1,000 mg PO DAILY [facility] Last Admin: 08/18/21 09:03 Dose: 1,000 mg Documented by: Omeprazole (Omeprazole 20 Mg Cap.Cr) 20 mg PO BID@0600,2100 [facility] Last Admin: 08/18/21 05:35 Dose: 20 mg Documented by: Ondansetron HCl (Ondansetron 4 Mg/2 Ml Sdv) 4 mg IVPUSH Q6H PRN PRN Reason: Nausea/Vomiting Potassium Chloride (Potassium Chloride 10 Meq Tab.Er) 10 meq PO DAILY [facility] Last Admin: 08/18/21 09:02 Dose: 10 meq Documented by: Sodium Chloride (Sodium Chloride 0.9% 10 Ml Syringe) 10 ml FLUSH ASDIRECTED PRN PRN Reason: Keep Vein Open Last Admin: 08/15/21 09:04 Dose: 10 ml Documented by: Vitamin E (Vitamin E (Lz-Mohka-Xdtpalrqnb Acetate) 400 Unit Cap) 400 units PO DAILY [facility] Last Admin: 08/18/21 09:02 Dose: 400 units Documented by: Warfarin Sodium (Pharmacy To Dose - Warfarin) 1 dose .XX ASDIRECTED [facility] Warfarin Sodium (Warfarin 1 Mg Tab) 0.5 mg PO ONETIME ONE Stop: 08/18/21 14:01 Discontinued Medications Albuterol/Ipratropium (Albuterol/Ipratropium 3.0-0.5 Mg/3 Ml Neb Soln) 3 ml NEB Q6H [facility] Last Admin: 08/15/21 15:12 Dose: Not Given Documented by: Diltiazem HCl (Diltiazem 25 Mg/5 Ml Sdv) 20 mg IVPUSH ONETIME ONE Stop: 08/15/21 08:49 Last Admin: 08/15/21 09:04 Dose: 20 mg Documented by: Diltiazem HCl (Diltiazem Ir 30 Mg Tab) 30 mg PO Q12HR [facility] Diltiazem HCl 125 mg/ Sodium (Chloride) 125 mls @ 10 mls/hr IV TITRATE [facility]; Protocol Last Admin: 08/16/21 06:19 Dose: 5 mg/hr, 5 mls/hr Documented by: Remdesivir 200 mg/ Sodium (Chloride) 250 mls @ 250 mls/hr IV ONETIME ONE Stop: 08/15/21 16:59 Last Admin: 08/15/21 17:09 Dose: 250 mls/hr Documented by: Diltiazem HCl 125 mg/ Sodium (Chloride) 125 mls @ 5 mls/hr IV TITRATE [facility]; Protocol Last Admin: 08/17/21 06:14 Dose: 5 mg/hr, 5 mls/hr Documented by: Warfarin Sodium (Warfarin 2.5 Mg Tab) 2.5 mg PO DAILY@1400 [facility] Warfarin Sodium (Warfarin 2.5 Mg Tab) 2.5 mg PO ONETIME ONE Stop: 08/15/21 17:01 Last Admin: 08/15/21 17:17 Dose: 2.5 mg Documented by: Warfarin Sodium (Warfarin 1 Mg Tab) 0.5 mg PO ONETIME ONE Stop: 08/16/21 14:01 Last Admin: 08/16/21 14:56 Dose: 0.5 mg Documented by: - Exam Quality Assessment: Supplemental Oxygen General: Alert, Oriented, Cooperative Lungs: Clear to Auscultation, Normal Respiratory Effort Cardiovascular: Regular Rate, Regular Rhythm GI/Abdominal Exam: Normal Bowel Sounds, Soft Extremities: Normal Inspection, No Pedal Edema Skin: Warm, Dry Neurological: No New Focal Deficit Psy/Mental Status: Alert - Patient Data Lab Results Last 24 hrs: Laboratory Results - last 24 hr 08/17/21 08/17/21 08/17/21 Range/Units 06:37 11:27 17:00 WBC (5.0-10.0) 10^3/uL RBC (4.2-5.4) 10^6/uL Hgb (12.0-16.0) g/dL Hct (37.0-47.0) % MCV (80-100) fL MCH (27.0-34.0) pg MCHC (33.0-35.0) g/dL Plt Count (150-450) 10^3/uL Neut % (Auto) (42.2-75.2) % Lymph % (Auto) (20.5-50.1) % [place] % (Auto) (2-8) % Eos % (Auto) (1.0-3.0) % Baso % (Auto) (0.0-1.0) % PT (9.0-12.0) SEC INR (0.9-1.2) Sodium (136-145) mmol/L Potassium (3.5-5.1) mmol/L Chloride (98-107) mmol/L Carbon Dioxide (21-32) mmol/L Anion Gap (7-13) mEq/L BUN (7-18) mg/dL Creatinine (0.55-1.02) mg/dL Est Cr Clr Drug Dosing mL/min Estimated GFR (MDRD) BUN/Creatinine Ratio (No establ ref range) Glucose (70-99) mg/dL POC Glucose 113 H 137 H (70-99) mg/dL Calcium (8.5-10.1) mg/dL Total Bilirubin (0.2-1.0) mg/dL Direct Bilirubin (0.0-0.2) mg/dL AST (15-37) U/L ALT (14-59) U/L Alkaline Phosphatase (46-116) U/L Total Protein (6.4-8.2) g/dL Albumin (3.4-5.0) g/dL Globulin Albumin/Globulin Ratio Procalcitonin 0.10 H ng/mL 08/18/21 08/18/21 08/18/21 Range/Units 06:20 06:20 06:20 WBC 5.9 (5.0-10.0) 10^3/uL RBC 3.92 L (4.2-5.4) 10^6/uL Hgb 12.1 (12.0-16.0) g/dL Hct 36.8 L (37.0-47.0) % MCV 93.9 (80-100) fL MCH 30.9 (27.0-34.0) pg MCHC 32.9 L (33.0-35.0) g/dL Plt Count 110 L (150-450) 10^3/uL Neut % (Auto) 79.6 H (42.2-75.2) % Lymph % (Auto) 14.3 L (20.5-50.1) % [place] % (Auto) 6.1 (2-8) % Eos % (Auto) 0.0 L (1.0-3.0) % Baso % (Auto) 0.0 (0.0-1.0) % PT 28.3 H (9.0-12.0) SEC INR 2.9 H (0.9-1.2) Sodium 140 (136-145) mmol/L Potassium 3.6 (3.5-5.1) mmol/L Chloride 105 (98-107) mmol/L Carbon Dioxide 23 (21-32) mmol/L Anion Gap 15.6 H (7-13) mEq/L BUN 29 H (7-18) mg/dL Creatinine 1.26 H (0.55-1.02) mg/dL Est Cr Clr Drug Dosing 31.13 mL/min Estimated GFR (MDRD) 40 BUN/Creatinine Ratio 23.0 (No establ ref range) Glucose 124 H (70-99) mg/dL POC Glucose (70-99) mg/dL Calcium 7.9 L (8.5-10.1) mg/dL Total Bilirubin 0.6 (0.2-1.0) mg/dL Direct Bilirubin 0.4 H (0.0-0.2) mg/dL AST 34 (15-37) U/L ALT 31 (14-59) U/L Alkaline Phosphatase 50 (46-116) U/L Total Protein 5.8 L (6.4-8.2) g/dL Albumin 2.8 L (3.4-5.0) g/dL Globulin 3.0 Albumin/Globulin Ratio 0.93 Procalcitonin ng/mL 08/18/21 08/18/21 Range/Units 08:10 08:46 WBC (5.0-10.0) 10^3/uL RBC (4.2-5.4) 10^6/uL Hgb (12.0-16.0) g/dL Hct (37.0-47.0) % MCV (80-100) fL MCH (27.0-34.0) pg MCHC (33.0-35.0) g/dL Plt Count (150-450) 10^3/uL Neut % (Auto) (42.2-75.2) % Lymph % (Auto) (20.5-50.1) % [place] % (Auto) (2-8) % Eos % (Auto) (1.0-3.0) % Baso % (Auto) (0.0-1.0) % PT (9.0-12.0) SEC INR (0.9-1.2) Sodium (136-145) mmol/L Potassium (3.5-5.1) mmol/L Chloride (98-107) mmol/L Carbon Dioxide (21-32) mmol/L Anion Gap (7-13) mEq/L BUN (7-18) mg/dL Creatinine (0.55-1.02) mg/dL Est Cr Clr Drug Dosing mL/min Estimated GFR (MDRD) BUN/Creatinine Ratio (No establ ref range) Glucose (70-99) mg/dL POC Glucose 116 H 117 H (70-99) mg/dL Calcium (8.5-10.1) mg/dL Total Bilirubin (0.2-1.0) mg/dL Direct Bilirubin (0.0-0.2) mg/dL AST (15-37) U/L ALT (14-59) U/L Alkaline Phosphatase (46-116) U/L Total Protein (6.4-8.2) g/dL Albumin (3.4-5.0) g/dL Globulin Albumin/Globulin Ratio Procalcitonin ng/mL Result Diagrams: 08/18/21 06:20 08/18/21 06:20 [facility] Results Last 24 hrs: Microbiology 08/15/21 09:35 Aerobic Blood Culture - Preliminary Blood - Venous - Lab Draw NO GROWTH AFTER 3 DAYS Anaerobic Blood Culture - Preliminary NO GROWTH AFTER 3 DAYS 08/15/21 08:29 Aerobic Blood Culture - Preliminary Blood - Venous - Iv Start NO GROWTH AFTER 3 DAYS Anaerobic Blood Culture - Final Sepsis Event Note - Evaluation Sepsis Screening Result: Possible Sepsis Risk - Focused Exam Vital Signs: Vital Signs Temp Pulse Pulse Resp BP BP Pulse Ox 08/18/21 09:02 107 H 109/77 08/18/21 08:00 98.0 F 107 H 22 H 109/77 96 08/18/21 04:00 97.8 F 100 20 116/66 91 L - Problem List Review Problem List Initiated/Reviewed/Updated: No - My Orders Last 24 Hours: My Active Orders 08/18/21 14:00 Warfarin [Coumadin] 0.5 mg PO ONETIME ONE 08/19/21 05:11 BASIC METABOLIC PANEL,BMP [CHEM] AM CBC WITH AUTO DIFF [HEME] AM INR,PT,PROTHROMBIN TIME [COAG] AM 08/19/21 14:45 BILIRUBIN DIRECT [CHEM] DAILY COMPREHENSIVE METABOLIC PN,CMP [CHEM] DAILY 08/20/21 05:11 BASIC METABOLIC PANEL,BMP [CHEM] AM CBC WITH AUTO DIFF [HEME] AM INR,PT,PROTHROMBIN TIME [COAG] AM 08/20/21 14:45 BILIRUBIN DIRECT [CHEM] DAILY COMPREHENSIVE METABOLIC PN,CMP [CHEM] DAILY 08/21/21 05:11 BASIC METABOLIC PANEL,BMP [CHEM] AM CBC WITH AUTO DIFF [HEME] AM INR,PT,PROTHROMBIN TIME [COAG] AM 08/22/21 05:11 BASIC METABOLIC PANEL,BMP [CHEM] AM CBC WITH AUTO DIFF [HEME] AM INR,PT,PROTHROMBIN TIME [COAG] AM - Plan Plan:: COVID pneumonia, test was done on Aug 13. ? vaccination status. hypoxia: on 1 L . Pulse ox mostly ~95. CXR ( Aug 17) showed + infiltrates and B pleural effusion: DC IVF Remdesivir, Dexamethasone, Zosyn. Her Procalcitonin came back 0.09 AFib with RVR: off/ on episode of RVR. off Cardizem drip and IVF. rate is controlled now. C Cardizem PO. 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 Pharmacy to dose H/o CHF per records: continue home medications including Lasix. For outpt echo through her PCP. Pt is still weak: to keep inpt for now. Full code as per pt request,
[2021-08-18] MEDS: REMDESIVIR 100 MG in Sodium Chloride 0.9% 100 ML IV SCH (15:39)
[2021-08-18] MEDS: LORazepam 0.5 MG Tab PO PRN (20:25)
[2021-08-19] MEDS: Piperacillin/Tazobactam 3.375 GM in Sodium Chloride 0.9% 100 ML IV SCH ×4 (04:06→21:53)
[2021-08-19] MEDS: Albuterol/Ipratropium 3.0-0.5 MG/3 ML Neb Soln NEB PRN (04:26)
[2021-08-19 07:07] LABS: ANION GAP 12.3 mEq/L (7-13)
[2021-08-19] MEDS: Omeprazole 20 MG Cap.CR PO SCH ×2 (07:14→21:52)
[2021-08-19] MEDS: Vitamin E (dl-alpha-tocopherol acetate) 400 Unit Cap PO SCH (08:29)
[2021-08-19] MEDS: Carvedilol 25 MG Tab PO SCH ×2 (08:29→21:51)
[2021-08-19] MEDS: Furosemide 20 MG Tab PO SCH ×2 (08:29→13:50)
[2021-08-19] MEDS: Potassium Chloride 10 MEQ Tab.ER PO SCH ×2 (08:32→21:52)
[2021-08-19] MEDS: Dexamethasone 4 MG/ML SDV IVPUSH SCH (08:33)
--- NOTE | 2021-08-19 10:28 | PCM.PN ---
- General Info Date of Service: 08/19/21 Functional Status: Reports: Pain Controlled, Tolerating Diet - Review of Systems General: Denies: Fever Pulmonary: Denies: Shortness of Breath Cardiovascular: Denies: Chest Pain Gastrointestinal: Denies: Abdominal Pain Neurological: Reports: No Symptoms Psychiatric: Reports: No Symptoms - Patient Data Vitals - Most Recent: Last Vital Signs Temp 96.8 F L 08/19/21 08:00 Pulse 88 08/19/21 08:29 Resp 20 08/19/21 08:00 BP 136/78 08/19/21 08:29 Pulse Ox 95 08/19/21 08:00 Weight - Most Recent: 144 lb I&O - Last 24 Hours: Intake & Output 08/18/21 08/19/21 08/19/21 22:59 06:59 14:59 Intake Total 300 100 Balance 300 100 Lab Results Last 24 Hours: Laboratory Results - last 24 hr 08/18/21 08/18/21 08/18/21 Range/Units 11:29 16:17 21:27 WBC (5.0-10.0) 10^3/uL RBC (4.2-5.4) 10^6/uL Hgb (12.0-16.0) g/dL Hct (37.0-47.0) % MCV (80-100) fL MCH (27.0-34.0) pg MCHC (33.0-35.0) g/dL Plt Count (150-450) 10^3/uL Neut % (Auto) (42.2-75.2) % Lymph % (Auto) (20.5-50.1) % Fleming % (Auto) (2-8) % Eos % (Auto) (1.0-3.0) % Baso % (Auto) (0.0-1.0) % PT (9.0-12.0) SEC INR (0.9-1.2) Sodium (136-145) mmol/L Potassium (3.5-5.1) mmol/L Chloride (98-107) mmol/L Carbon Dioxide (21-32) mmol/L Anion Gap (7-13) mEq/L BUN (7-18) mg/dL Creatinine (0.55-1.02) mg/dL Est Cr Clr Drug Dosing mL/min Estimated GFR (MDRD) BUN/Creatinine Ratio (No establ ref range) Glucose (70-99) mg/dL POC Glucose 114 H 126 H 138 H (70-99) mg/dL Calcium (8.5-10.1) mg/dL Total Bilirubin (0.2-1.0) mg/dL Direct Bilirubin (0.0-0.2) mg/dL AST (15-37) U/L ALT (14-59) U/L Alkaline Phosphatase (46-116) U/L Total Protein (6.4-8.2) g/dL Albumin (3.4-5.0) g/dL Globulin Albumin/Globulin Ratio 08/19/21 08/19/21 08/19/21 Range/Units 06:34 06:34 06:34 WBC 5.4 (5.0-10.0) 10^3/uL RBC 3.90 L (4.2-5.4) 10^6/uL Hgb 12.0 (12.0-16.0) g/dL Hct 36.1 L (37.0-47.0) % MCV 92.6 (80-100) fL MCH 30.8 (27.0-34.0) pg MCHC 33.2 (33.0-35.0) g/dL Plt Count 107 L (150-450) 10^3/uL Neut % (Auto) 75.8 H (42.2-75.2) % Lymph % (Auto) 15.7 L (20.5-50.1) % Fleming % (Auto) 8.3 H (2-8) % Eos % (Auto) 0.2 L (1.0-3.0) % Baso % (Auto) 0.0 (0.0-1.0) % PT 27.4 H (9.0-12.0) SEC INR 2.8 H (0.9-1.2) Sodium 139 (136-145) mmol/L Potassium 3.3 L (3.5-5.1) mmol/L Chloride 105 (98-107) mmol/L Carbon Dioxide 25 (21-32) mmol/L Anion Gap 12.3 (7-13) mEq/L BUN 30 H (7-18) mg/dL Creatinine 1.24 H (0.55-1.02) mg/dL Est Cr Clr Drug Dosing 31.63 mL/min Estimated GFR (MDRD) 41 BUN/Creatinine Ratio 24.2 (No establ ref range) Glucose 125 H (70-99) mg/dL POC Glucose (70-99) mg/dL Calcium 7.9 L (8.5-10.1) mg/dL Total Bilirubin 0.7 (0.2-1.0) mg/dL Direct Bilirubin 0.4 H (0.0-0.2) mg/dL AST 32 (15-37) U/L ALT 33 (14-59) U/L Alkaline Phosphatase 50 (46-116) U/L Total Protein 5.7 L (6.4-8.2) g/dL Albumin 2.7 L (3.4-5.0) g/dL Globulin 3.0 Albumin/Globulin Ratio 0.90 Christiano Results Last 24 Hours: Microbiology 08/15/21 09:35 Aerobic Blood Culture - Preliminary Blood - Venous - Lab Draw NO GROWTH AFTER 4 DAYS Anaerobic Blood Culture - Preliminary NO GROWTH AFTER 4 DAYS 08/15/21 08:29 Aerobic Blood Culture - Preliminary Blood - Venous - Iv Start NO GROWTH AFTER 4 DAYS Anaerobic Blood Culture - Final Med Orders - Current: Current Medications Acetaminophen (Acetaminophen 500 Mg Tab) 500 mg PO Q6H PRN PRN Reason: Pain/Fever Albuterol (Albuterol 0.083% 2.5 Mg/3 Ml Neb Soln) 2.5 mg NEB Q2H PRN PRN Reason: shortness of breath/wheezing Albuterol/Ipratropium (Albuterol/Ipratropium 3.0-0.5 Mg/3 Ml Neb Soln) 3 ml NEB Q6H PRN PRN Reason: Dyspnea Last Admin: 08/19/21 04:26 Dose: 3 ml Documented by: Carvedilol (Carvedilol 25 Mg Tab) 25 mg PO BID [facility] Last Admin: 08/19/21 08:29 Dose: 25 mg Documented by: Dexamethasone (Dexamethasone 4 Mg/Ml Sdv) 6 mg IVPUSH DAILY [facility] Last Admin: 08/19/21 08:33 Dose: 6 mg Documented by: Docusate Sodium (Docusate Sodium 100 Mg Cap) 100 mg PO BID PRN PRN Reason: Constipation Furosemide (Furosemide 20 Mg Tab) 20 mg PO BID@0800,1400 [facility] Last Admin: 08/19/21 08:29 Dose: 20 mg Documented by: Remdesivir 100 mg/ Sodium (Chloride) 100 mls @ 100 mls/hr IV Q24H [facility] Stop: 08/19/21 16:59 Last Infusion: 08/18/21 16:45 Dose: Infused Documented by: Piperacillin Sod/Tazobactam (Sod 3.375 gm/ Sodium Chloride) 100 mls @ 200 mls/hr IV Q6H [facility] Last Infusion: 08/19/21 09:38 Dose: Infused Documented by: Lorazepam (Lorazepam 0.5 Mg Tab) 0.5 mg PO Q6H PRN PRN Reason: Anxiety Last Admin: 08/18/21 20:25 Dose: 0.5 mg Documented by: Methylcellulose (Methylcellulose 500 Mg Tab) 1,000 mg PO DAILY [facility] Last Admin: 08/19/21 08:32 Dose: 1,000 mg Documented by: Omeprazole (Omeprazole 20 Mg Cap.Cr) 20 mg PO BID@0600,2100 [facility] Last Admin: 08/19/21 07:14 Dose: 20 mg Documented by: Ondansetron HCl (Ondansetron 4 Mg/2 Ml Sdv) 4 mg IVPUSH Q6H PRN PRN Reason: Nausea/Vomiting Potassium Chloride (Potassium Chloride 10 Meq Tab.Er) 20 meq PO BID [facility] Last Admin: 08/19/21 08:32 Dose: 20 meq Documented by: Sodium Chloride (Sodium Chloride 0.9% 10 Ml Syringe) 10 ml FLUSH ASDIRECTED PRN PRN Reason: Keep Vein Open Last Admin: 08/15/21 09:04 Dose: 10 ml Documented by: Vitamin E (Vitamin E (Fz-Wsjyn-Itdhyskbuw Acetate) 400 Unit Cap) 400 units PO DAILY [facility] Last Admin: 08/19/21 08:29 Dose: 400 units Documented by: Warfarin Sodium (Pharmacy To Dose - Warfarin) 1 dose .XX ASDIRECTED [facility] Warfarin Sodium (Warfarin 1 Mg Tab) 0.5 mg PO ONETIME ONE Stop: 08/19/21 14:01 Discontinued Medications Albuterol/Ipratropium (Albuterol/Ipratropium 3.0-0.5 Mg/3 Ml Neb Soln) 3 ml NEB Q6H [facility] Last Admin: 08/15/21 15:12 Dose: Not Given Documented by: Diltiazem HCl (Diltiazem 25 Mg/5 Ml Sdv) 20 mg IVPUSH ONETIME ONE Stop: 08/15/21 08:49 Last Admin: 08/15/21 09:04 Dose: 20 mg Documented by: Diltiazem HCl (Diltiazem Ir 30 Mg Tab) 30 mg PO Q12HR [facility] Furosemide (Furosemide 20 Mg Tab) 20 mg PO BIDMEALS [facility] Last Admin: 08/18/21 17:07 Dose: 20 mg Documented by: Diltiazem HCl 125 mg/ Sodium (Chloride) 125 mls @ 10 mls/hr IV TITRATE [facility]; Protocol Last Admin: 08/16/21 06:19 Dose: 5 mg/hr, 5 mls/hr Documented by: Remdesivir 200 mg/ Sodium (Chloride) 250 mls @ 250 mls/hr IV ONETIME ONE Stop: 08/15/21 16:59 Last Admin: 08/15/21 17:09 Dose: 250 mls/hr Documented by: Diltiazem HCl 125 mg/ Sodium (Chloride) 125 mls @ 5 mls/hr IV TITRATE [facility]; Protocol Last Admin: 08/17/21 06:14 Dose: 5 mg/hr, 5 mls/hr Documented by: Sodium Chloride (Normal Saline) 1,000 mls @ 60 mls/hr IV ASDIRECTED [facility] Last Infusion: 08/17/21 09:44 Dose: 10 mls/hr Documented by: Potassium Chloride (Potassium Chloride 10 Meq Tab.Er) 10 meq PO DAILY [facility] Last Admin: 08/18/21 09:02 Dose: 10 meq Documented by: Warfarin Sodium (Warfarin 2.5 Mg Tab) 2.5 mg PO DAILY@1400 [facility] Warfarin Sodium (Warfarin 2.5 Mg Tab) 2.5 mg PO ONETIME ONE Stop: 08/15/21 17:01 Last Admin: 08/15/21 17:17 Dose: 2.5 mg Documented by: Warfarin Sodium (Warfarin 1 Mg Tab) 0.5 mg PO ONETIME ONE Stop: 08/16/21 14:01 Last Admin: 08/16/21 14:56 Dose: 0.5 mg Documented by: Warfarin Sodium (Warfarin 1 Mg Tab) 0.5 mg PO ONETIME ONE Stop: 08/18/21 14:01 Last Admin: 08/18/21 15:31 Dose: 0.5 mg Documented by: - Exam Quality Assessment: Supplemental Oxygen General: Alert, Oriented Neck: Supple Lungs: Clear to Auscultation, Normal Respiratory Effort Cardiovascular: Irregular Rhythm GI/Abdominal Exam: Normal Bowel Sounds Back Exam: Normal Inspection Extremities: Normal Inspection Skin: Warm Neurological: No New Focal Deficit Psy/Mental Status: Alert - Patient Data Lab Results Last 24 hrs: Laboratory Results - last 24 hr 08/18/21 08/18/21 08/18/21 Range/Units 11:29 16:17 21:27 WBC (5.0-10.0) 10^3/uL RBC (4.2-5.4) 10^6/uL Hgb (12.0-16.0) g/dL Hct (37.0-47.0) % MCV (80-100) fL MCH (27.0-34.0) pg MCHC (33.0-35.0) g/dL Plt Count (150-450) 10^3/uL Neut % (Auto) (42.2-75.2) % Lymph % (Auto) (20.5-50.1) % Fleming % (Auto) (2-8) % Eos % (Auto) (1.0-3.0) % Baso % (Auto) (0.0-1.0) % PT (9.0-12.0) SEC INR (0.9-1.2) Sodium (136-145) mmol/L Potassium (3.5-5.1) mmol/L Chloride (98-107) mmol/L Carbon Dioxide (21-32) mmol/L Anion Gap (7-13) mEq/L BUN (7-18) mg/dL Creatinine (0.55-1.02) mg/dL Est Cr Clr Drug Dosing mL/min Estimated GFR (MDRD) BUN/Creatinine Ratio (No establ ref range) Glucose (70-99) mg/dL POC Glucose 114 H 126 H 138 H (70-99) mg/dL Calcium (8.5-10.1) mg/dL Total Bilirubin (0.2-1.0) mg/dL Direct Bilirubin (0.0-0.2) mg/dL AST (15-37) U/L ALT (14-59) U/L Alkaline Phosphatase (46-116) U/L Total Protein (6.4-8.2) g/dL Albumin (3.4-5.0) g/dL Globulin Albumin/Globulin Ratio 08/19/21 08/19/21 08/19/21 Range/Units 06:34 06:34 06:34 WBC 5.4 (5.0-10.0) 10^3/uL RBC 3.90 L (4.2-5.4) 10^6/uL Hgb 12.0 (12.0-16.0) g/dL Hct 36.1 L (37.0-47.0) % MCV 92.6 (80-100) fL MCH 30.8 (27.0-34.0) pg MCHC 33.2 (33.0-35.0) g/dL Plt Count 107 L (150-450) 10^3/uL Neut % (Auto) 75.8 H (42.2-75.2) % Lymph % (Auto) 15.7 L (20.5-50.1) % Fleming % (Auto) 8.3 H (2-8) % Eos % (Auto) 0.2 L (1.0-3.0) % Baso % (Auto) 0.0 (0.0-1.0) % PT 27.4 H (9.0-12.0) SEC INR 2.8 H (0.9-1.2) Sodium 139 (136-145) mmol/L Potassium 3.3 L (3.5-5.1) mmol/L Chloride 105 (98-107) mmol/L Carbon Dioxide 25 (21-32) mmol/L Anion Gap 12.3 (7-13) mEq/L BUN 30 H (7-18) mg/dL Creatinine 1.24 H (0.55-1.02) mg/dL Est Cr Clr Drug Dosing 31.63 mL/min Estimated GFR (MDRD) 41 BUN/Creatinine Ratio 24.2 (No establ ref range) Glucose 125 H (70-99) mg/dL POC Glucose (70-99) mg/dL Calcium 7.9 L (8.5-10.1) mg/dL Total Bilirubin 0.7 (0.2-1.0) mg/dL Direct Bilirubin 0.4 H (0.0-0.2) mg/dL AST 32 (15-37) U/L ALT 33 (14-59) U/L Alkaline Phosphatase 50 (46-116) U/L Total Protein 5.7 L (6.4-8.2) g/dL Albumin 2.7 L (3.4-5.0) g/dL Globulin 3.0 Albumin/Globulin Ratio 0.90 Result Diagrams: 08/19/21 06:34 08/19/21 06:34 Christiano Results Last 24 hrs: Microbiology 08/15/21 09:35 Aerobic Blood Culture - Preliminary Blood - Venous - Lab Draw NO GROWTH AFTER 4 DAYS Anaerobic Blood Culture - Preliminary NO GROWTH AFTER 4 DAYS 08/15/21 08:29 Aerobic Blood Culture - Preliminary Blood - Venous - Iv Start NO GROWTH AFTER 4 DAYS Anaerobic Blood Culture - Final Sepsis Event Note - Evaluation Sepsis Screening Result: Possible Sepsis Risk - Focused Exam Vital Signs: Vital Signs Temp Pulse Pulse Resp BP BP Pulse Ox 08/19/21 08:29 88 136/78 08/19/21 08:00 96.8 F L 88 20 136/78 95 08/19/21 04:00 96.3 F L 85 24 H 145/86 H 90 L 08/19/21 00:00 90 16 - Problem List Review Problem List Initiated/Reviewed/Updated: No - My Orders Last 24 Hours: My Active Orders 08/19/21 08:00 Furosemide [Lasix] 20 mg PO BID@0800,1400 08/19/21 09:00 Potassium Chloride [Klor-Con 10] 20 meq PO BID 08/19/21 14:00 Warfarin [Coumadin] 0.5 mg PO ONETIME ONE 08/20/21 05:11 BASIC METABOLIC PANEL,BMP [CHEM] AM CBC WITH AUTO DIFF [HEME] AM INR,PT,PROTHROMBIN TIME [COAG] AM 08/20/21 14:45 BILIRUBIN DIRECT [CHEM] DAILY COMPREHENSIVE METABOLIC PN,CMP [CHEM] DAILY 08/21/21 05:11 BASIC METABOLIC PANEL,BMP [CHEM] AM CBC WITH AUTO DIFF [HEME] AM INR,PT,PROTHROMBIN TIME [COAG] AM 08/22/21 05:11 BASIC METABOLIC PANEL,BMP [CHEM] AM CBC WITH AUTO DIFF [HEME] AM INR,PT,PROTHROMBIN TIME [COAG] AM - Plan Plan:: COVID pneumonia, test was done on Aug 13. ? vaccination status. Hypoxia: on 2 L . Pulse ox mostly > 90. CXR ( Oct 12) showed + infiltrates and B pleural effusion: DC IVF Remdesivir ( last dose today), Dexamethasone, Zosyn. Her Procalcitonin came back 0.09 AFib with RVR: off/ on episode of RVR. off Cardizem drip and IVF. rate is controlled now. C Cardizem PO. 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 Pharmacy to dose H/o CHF per records: continue home medications including Lasix. For outpt echo through her PCP. Pt is still weak: to keep inpt for now. Possible DC over the weekend pending clinical improvement and family situations. Full code as per pt request,
[2021-08-19] MEDS: REMDESIVIR 100 MG in Sodium Chloride 0.9% 100 ML IV SCH (16:11)
[2021-08-19] MEDS: LORazepam 0.5 MG Tab PO PRN (21:51)
[2021-08-19] MEDS: Acetaminophen 500 MG Tab PO PRN (22:02)
[2021-08-20] MEDS: Piperacillin/Tazobactam 3.375 GM in Sodium Chloride 0.9% 100 ML IV SCH ×2 (02:55→08:46)
[2021-08-20] MEDS: Omeprazole 20 MG Cap.CR PO SCH ×2 (05:50→20:27)
[2021-08-20 06:41] LABS: ANION GAP 12.4 mEq/L (7-13)
[2021-08-20] MEDS: Dexamethasone 4 MG/ML SDV IVPUSH SCH (08:39)
[2021-08-20] MEDS: Furosemide 20 MG Tab PO SCH (08:42)
[2021-08-20] MEDS: Carvedilol 25 MG Tab PO SCH ×2 (08:42→20:27)
[2021-08-20] MEDS: Potassium Chloride 10 MEQ Tab.ER PO SCH ×2 (08:43→20:26)
[2021-08-20] MEDS: Vitamin E (dl-alpha-tocopherol acetate) 400 Unit Cap PO SCH (08:43)
--- NOTE | 2021-08-20 10:11 | PCM.PN ---
- General Info Date of Service: 08/20/21 Subjective Update: Feeling OK. She would like to get home today. No SOB - Review of Systems General: Denies: Fever Pulmonary: Denies: Shortness of Breath Gastrointestinal: Denies: Abdominal Pain Neurological: Denies: No Symptoms Psychiatric: Denies: No Symptoms - Patient Data Vitals - Most Recent: Last Vital Signs Temp 96.4 F L 08/20/21 03:17 Pulse 96 08/20/21 08:42 Resp 22 H 08/20/21 03:17 BP 145/89 H 08/20/21 08:42 Pulse Ox 94 L 08/20/21 03:17 Weight - Most Recent: 144 lb I&O - Last 24 Hours: Intake & Output 08/19/21 08/20/21 08/20/21 22:59 06:59 14:59 Intake Total 500 200 Balance 500 200 Lab Results Last 24 Hours: Laboratory Results - last 24 hr 08/19/21 08/19/21 08/19/21 Range/Units 11:48 17:13 20:36 WBC (5.0-10.0) 10^3/uL RBC (4.2-5.4) 10^6/uL Hgb (12.0-16.0) g/dL Hct (37.0-47.0) % MCV (80-100) fL MCH (27.0-34.0) pg MCHC (33.0-35.0) g/dL Plt Count (150-450) 10^3/uL Neut % (Auto) (42.2-75.2) % Lymph % (Auto) (20.5-50.1) % Milam % (Auto) (2-8) % Eos % (Auto) (1.0-3.0) % Baso % (Auto) (0.0-1.0) % Add Manual Diff Neutrophils % (Manual) (42-75) % Lymphocytes % (Manual) (20-50) % Monocytes % (Manual) (2-8) % Polychromasia PT (9.0-12.0) SEC INR (0.9-1.2) Sodium (136-145) mmol/L Potassium (3.5-5.1) mmol/L Chloride (98-107) mmol/L Carbon Dioxide (21-32) mmol/L Anion Gap (7-13) mEq/L BUN (7-18) mg/dL Creatinine (0.55-1.02) mg/dL Est Cr Clr Drug Dosing mL/min Estimated GFR (MDRD) BUN/Creatinine Ratio (No establ ref range) Glucose (70-99) mg/dL POC Glucose 108 H 141 H 167 H (70-99) mg/dL Calcium (8.5-10.1) mg/dL Total Bilirubin (0.2-1.0) mg/dL Direct Bilirubin (0.0-0.2) mg/dL AST (15-37) U/L ALT (14-59) U/L Alkaline Phosphatase (46-116) U/L Total Protein (6.4-8.2) g/dL Albumin (3.4-5.0) g/dL Globulin Albumin/Globulin Ratio 08/20/21 08/20/21 08/20/21 Range/Units 06:05 06:05 06:05 WBC 5.9 (5.0-10.0) 10^3/uL RBC 4.18 L (4.2-5.4) 10^6/uL Hgb 12.8 (12.0-16.0) g/dL Hct 38.3 (37.0-47.0) % MCV 91.6 (80-100) fL MCH 30.6 (27.0-34.0) pg MCHC 33.4 (33.0-35.0) g/dL Plt Count 119 L (150-450) 10^3/uL Neut % (Auto) 71.2 (42.2-75.2) % Lymph % (Auto) 19.3 L (20.5-50.1) % Milam % (Auto) 9.5 H (2-8) % Eos % (Auto) 0.0 L (1.0-3.0) % Baso % (Auto) 0.0 (0.0-1.0) % Add Manual Diff Yes Neutrophils % (Manual) 72 (42-75) % Lymphocytes % (Manual) 23 (20-50) % Monocytes % (Manual) 5 (2-8) % Polychromasia PT 25.4 H (9.0-12.0) SEC INR 2.6 H (0.9-1.2) Sodium 140 (136-145) mmol/L Potassium 3.4 L (3.5-5.1) mmol/L Chloride 103 (98-107) mmol/L Carbon Dioxide 28 (21-32) mmol/L Anion Gap 12.4 (7-13) mEq/L BUN 27 H (7-18) mg/dL Creatinine 1.33 H (0.55-1.02) mg/dL Est Cr Clr Drug Dosing 29.49 mL/min Estimated GFR (MDRD) 38 BUN/Creatinine Ratio 20.3 (No establ ref range) Glucose 122 H (70-99) mg/dL POC Glucose (70-99) mg/dL Calcium 7.9 L (8.5-10.1) mg/dL Total Bilirubin 0.8 (0.2-1.0) mg/dL Direct Bilirubin 0.4 H (0.0-0.2) mg/dL AST 27 (15-37) U/L ALT 32 (14-59) U/L Alkaline Phosphatase 49 (46-116) U/L Total Protein 5.7 L (6.4-8.2) g/dL Albumin 2.7 L (3.4-5.0) g/dL Globulin 3.0 Albumin/Globulin Ratio 0.90 10/15/21 Range/Units 08:34 WBC (5.0-10.0) 10^3/uL RBC (4.2-5.4) 10^6/uL Hgb (12.0-16.0) g/dL Hct (37.0-47.0) % MCV (80-100) fL MCH (27.0-34.0) pg MCHC (33.0-35.0) g/dL Plt Count (150-450) 10^3/uL Neut % (Auto) (42.2-75.2) % Lymph % (Auto) (20.5-50.1) % Milam % (Auto) (2-8) % Eos % (Auto) (1.0-3.0) % Baso % (Auto) (0.0-1.0) % Add Manual Diff Neutrophils % (Manual) (42-75) % Lymphocytes % (Manual) (20-50) % Monocytes % (Manual) (2-8) % Polychromasia PT (9.0-12.0) SEC INR (0.9-1.2) Sodium (136-145) mmol/L Potassium (3.5-5.1) mmol/L Chloride (98-107) mmol/L Carbon Dioxide (21-32) mmol/L Anion Gap (7-13) mEq/L BUN (7-18) mg/dL Creatinine (0.55-1.02) mg/dL Est Cr Clr Drug Dosing mL/min Estimated GFR (MDRD) BUN/Creatinine Ratio (No establ ref range) Glucose (70-99) mg/dL POC Glucose 99 (70-99) mg/dL Calcium (8.5-10.1) mg/dL Total Bilirubin (0.2-1.0) mg/dL Direct Bilirubin (0.0-0.2) mg/dL AST (15-37) U/L ALT (14-59) U/L Alkaline Phosphatase (46-116) U/L Total Protein (6.4-8.2) g/dL Albumin (3.4-5.0) g/dL Globulin Albumin/Globulin Ratio Christiano Results Last 24 Hours: Microbiology 08/15/21 09:35 Aerobic Blood Culture - Final Blood - Venous - Lab Draw NO GROWTH AFTER 5 DAYS Anaerobic Blood Culture - Final NO GROWTH AFTER 5 DAYS 08/15/21 08:29 Aerobic Blood Culture - Final Blood - Venous - Iv Start NO GROWTH AFTER 5 DAYS Anaerobic Blood Culture - Final Med Orders - Current: Current Medications Acetaminophen (Acetaminophen 500 Mg Tab) 500 mg PO Q6H PRN PRN Reason: Pain/Fever Last Admin: 08/19/21 22:02 Dose: 500 mg Documented by: Albuterol (Albuterol 0.083% 2.5 Mg/3 Ml Neb Soln) 2.5 mg NEB Q2H PRN PRN Reason: shortness of breath/wheezing Albuterol/Ipratropium (Albuterol/Ipratropium 3.0-0.5 Mg/3 Ml Neb Soln) 3 ml NEB Q6H PRN PRN Reason: Dyspnea Last Admin: 08/19/21 04:26 Dose: 3 ml Documented by: Carvedilol (Carvedilol 25 Mg Tab) 25 mg PO BID [facility] Last Admin: 08/20/21 08:42 Dose: 25 mg Documented by: Dexamethasone (Dexamethasone 4 Mg/Ml Sdv) 6 mg IVPUSH DAILY [facility] Last Admin: 08/20/21 08:39 Dose: 6 mg Documented by: Docusate Sodium (Docusate Sodium 100 Mg Cap) 100 mg PO BID PRN PRN Reason: Constipation Furosemide (Furosemide 20 Mg Tab) 20 mg PO BID@0800,1400 [facility] Last Admin: 08/20/21 08:42 Dose: 20 mg Documented by: Piperacillin Sod/Tazobactam (Sod 3.375 gm/ Sodium Chloride) 100 mls @ 200 mls/hr IV Q6H [facility] Last Admin: 08/20/21 08:46 Dose: 200 mls/hr Documented by: Lorazepam (Lorazepam 0.5 Mg Tab) 0.5 mg PO Q6H PRN PRN Reason: Anxiety Last Admin: 08/19/21 21:51 Dose: 0.5 mg Documented by: Methylcellulose (Methylcellulose 500 Mg Tab) 1,000 mg PO DAILY [facility] Last Admin: 08/20/21 08:42 Dose: 1,000 mg Documented by: Omeprazole (Omeprazole 20 Mg Cap.Cr) 20 mg PO BID@0600,2100 [facility] Last Admin: 08/20/21 05:50 Dose: 20 mg Documented by: Ondansetron HCl (Ondansetron 4 Mg/2 Ml Sdv) 4 mg IVPUSH Q6H PRN PRN Reason: Nausea/Vomiting Potassium Chloride (Potassium Chloride 10 Meq Tab.Er) 20 meq PO BID [facility] Last Admin: 08/20/21 08:43 Dose: 20 meq Documented by: Sodium Chloride (Sodium Chloride 0.9% 10 Ml Syringe) 10 ml FLUSH ASDIRECTED PRN PRN Reason: Keep Vein Open Last Admin: 08/15/21 09:04 Dose: 10 ml Documented by: Vitamin E (Vitamin E (Th-Mrhyl-Uvwmvehkey Acetate) 400 Unit Cap) 400 units PO DAILY [facility] Last Admin: 08/20/21 08:43 Dose: 400 units Documented by: Warfarin Sodium (Pharmacy To Dose - Warfarin) 1 dose .XX ASDIRECTED [facility] Warfarin Sodium (Warfarin 1 Mg Tab) 0.5 mg PO ONETIME ONE Stop: 08/20/21 14:01 Discontinued Medications Albuterol/Ipratropium (Albuterol/Ipratropium 3.0-0.5 Mg/3 Ml Neb Soln) 3 ml NEB Q6H [facility] Last Admin: 08/15/21 15:12 Dose: Not Given Documented by: Diltiazem HCl (Diltiazem 25 Mg/5 Ml Sdv) 20 mg IVPUSH ONETIME ONE Stop: 08/15/21 08:49 Last Admin: 08/15/21 09:04 Dose: 20 mg Documented by: Diltiazem HCl (Diltiazem Ir 30 Mg Tab) 30 mg PO Q12HR [facility] Furosemide (Furosemide 20 Mg Tab) 20 mg PO BIDMEALS [facility] Last Admin: 08/18/21 17:07 Dose: 20 mg Documented by: Diltiazem HCl 125 mg/ Sodium (Chloride) 125 mls @ 10 mls/hr IV TITRATE [facility]; Protocol Last Admin: 08/16/21 06:19 Dose: 5 mg/hr, 5 mls/hr Documented by: Remdesivir 200 mg/ Sodium (Chloride) 250 mls @ 250 mls/hr IV ONETIME ONE Stop: 08/15/21 16:59 Last Admin: 08/15/21 17:09 Dose: 250 mls/hr Documented by: Remdesivir 100 mg/ Sodium (Chloride) 100 mls @ 100 mls/hr IV Q24H [facility] Stop: 08/19/21 16:59 Last Admin: 08/19/21 16:11 Dose: 100 mls/hr Documented by: Diltiazem HCl 125 mg/ Sodium (Chloride) 125 mls @ 5 mls/hr IV TITRATE [facility]; Protocol Last Admin: 08/17/21 06:14 Dose: 5 mg/hr, 5 mls/hr Documented by: Sodium Chloride (Normal Saline) 1,000 mls @ 60 mls/hr IV ASDIRECTED [facility] Last Infusion: 08/17/21 09:44 Dose: 10 mls/hr Documented by: Potassium Chloride (Potassium Chloride 10 Meq Tab.Er) 10 meq PO DAILY [facility] Last Admin: 08/18/21 09:02 Dose: 10 meq Documented by: Warfarin Sodium (Warfarin 2.5 Mg Tab) 2.5 mg PO DAILY@1400 [facility] Warfarin Sodium (Warfarin 2.5 Mg Tab) 2.5 mg PO ONETIME ONE Stop: 08/15/21 17:01 Last Admin: 08/15/21 17:17 Dose: 2.5 mg Documented by: Warfarin Sodium (Warfarin 1 Mg Tab) 0.5 mg PO ONETIME ONE Stop: 08/16/21 14:01 Last Admin: 08/16/21 14:56 Dose: 0.5 mg Documented by: Warfarin Sodium (Warfarin 1 Mg Tab) 0.5 mg PO ONETIME ONE Stop: 08/18/21 14:01 Last Admin: 08/18/21 15:31 Dose: 0.5 mg Documented by: Warfarin Sodium (Warfarin 1 Mg Tab) 0.5 mg PO ONETIME ONE Stop: 08/19/21 14:01 Last Admin: 08/19/21 13:50 Dose: 0.5 mg Documented by: Comments:: Pulse OX 99 % on RA. - Exam Quality Assessment: No: Supplemental Oxygen General: Alert, Oriented HEENT: EOMI Neck: No JVD Lungs: Normal Respiratory Effort Cardiovascular: Irregular Rhythm GI/Abdominal Exam: Soft, Non-Tender (Female) Exam: Normal External Exam Back Exam: Normal Inspection Skin: Warm, Dry Neurological: No New Focal Deficit Psy/Mental Status: Alert - Patient Data Lab Results Last 24 hrs: Laboratory Results - last 24 hr 08/19/21 08/19/21 08/19/21 Range/Units 11:48 17:13 20:36 WBC (5.0-10.0) 10^3/uL RBC (4.2-5.4) 10^6/uL Hgb (12.0-16.0) g/dL Hct (37.0-47.0) % MCV (80-100) fL MCH (27.0-34.0) pg MCHC (33.0-35.0) g/dL Plt Count (150-450) 10^3/uL Neut % (Auto) (42.2-75.2) % Lymph % (Auto) (20.5-50.1) % Milam % (Auto) (2-8) % Eos % (Auto) (1.0-3.0) % Baso % (Auto) (0.0-1.0) % Add Manual Diff Neutrophils % (Manual) (42-75) % Lymphocytes % (Manual) (20-50) % Monocytes % (Manual) (2-8) % Polychromasia PT (9.0-12.0) SEC INR (0.9-1.2) Sodium (136-145) mmol/L Potassium (3.5-5.1) mmol/L Chloride (98-107) mmol/L Carbon Dioxide (21-32) mmol/L Anion Gap (7-13) mEq/L BUN (7-18) mg/dL Creatinine (0.55-1.02) mg/dL Est Cr Clr Drug Dosing mL/min Estimated GFR (MDRD) BUN/Creatinine Ratio (No establ ref range) Glucose (70-99) mg/dL POC Glucose 108 H 141 H 167 H (70-99) mg/dL Calcium (8.5-10.1) mg/dL Total Bilirubin (0.2-1.0) mg/dL Direct Bilirubin (0.0-0.2) mg/dL AST (15-37) U/L ALT (14-59) U/L Alkaline Phosphatase (46-116) U/L Total Protein (6.4-8.2) g/dL Albumin (3.4-5.0) g/dL Globulin Albumin/Globulin Ratio 08/20/21 08/20/21 08/20/21 Range/Units 06:05 06:05 06:05 WBC 5.9 (5.0-10.0) 10^3/uL RBC 4.18 L (4.2-5.4) 10^6/uL Hgb 12.8 (12.0-16.0) g/dL Hct 38.3 (37.0-47.0) % MCV 91.6 (80-100) fL MCH 30.6 (27.0-34.0) pg MCHC 33.4 (33.0-35.0) g/dL Plt Count 119 L (150-450) 10^3/uL Neut % (Auto) 71.2 (42.2-75.2) % Lymph % (Auto) 19.3 L (20.5-50.1) % Milam % (Auto) 9.5 H (2-8) % Eos % (Auto) 0.0 L (1.0-3.0) % Baso % (Auto) 0.0 (0.0-1.0) % Add Manual Diff Yes Neutrophils % (Manual) 72 (42-75) % Lymphocytes % (Manual) 23 (20-50) % Monocytes % (Manual) 5 (2-8) % Polychromasia PT 25.4 H (9.0-12.0) SEC INR 2.6 H (0.9-1.2) Sodium 140 (136-145) mmol/L Potassium 3.4 L (3.5-5.1) mmol/L Chloride 103 (98-107) mmol/L Carbon Dioxide 28 (21-32) mmol/L Anion Gap 12.4 (7-13) mEq/L BUN 27 H (7-18) mg/dL Creatinine 1.33 H (0.55-1.02) mg/dL Est Cr Clr Drug Dosing 29.49 mL/min Estimated GFR (MDRD) 38 BUN/Creatinine Ratio 20.3 (No establ ref range) Glucose 122 H (70-99) mg/dL POC Glucose (70-99) mg/dL Calcium 7.9 L (8.5-10.1) mg/dL Total Bilirubin 0.8 (0.2-1.0) mg/dL Direct Bilirubin 0.4 H (0.0-0.2) mg/dL AST 27 (15-37) U/L ALT 32 (14-59) U/L Alkaline Phosphatase 49 (46-116) U/L Total Protein 5.7 L (6.4-8.2) g/dL Albumin 2.7 L (3.4-5.0) g/dL Globulin 3.0 Albumin/Globulin Ratio 0.90 10/15/ Range/Units 08:34 WBC (5.0-10.0) 10^3/uL RBC (4.2-5.4) 10^6/uL Hgb (12.0-16.0) g/dL Hct (37.0-47.0) % MCV (80-100) fL MCH (27.0-34.0) pg MCHC (33.0-35.0) g/dL Plt Count (150-450) 10^3/uL Neut % (Auto) (42.2-75.2) % Lymph % (Auto) (20.5-50.1) % Milam % (Auto) (2-8) % Eos % (Auto) (1.0-3.0) % Baso % (Auto) (0.0-1.0) % Add Manual Diff Neutrophils % (Manual) (42-75) % Lymphocytes % (Manual) (20-50) % Monocytes % (Manual) (2-8) % Polychromasia PT (9.0-12.0) SEC INR (0.9-1.2) Sodium (136-145) mmol/L Potassium (3.5-5.1) mmol/L Chloride (98-107) mmol/L Carbon Dioxide (21-32) mmol/L Anion Gap (7-13) mEq/L BUN (7-18) mg/dL Creatinine (0.55-1.02) mg/dL Est Cr Clr Drug Dosing mL/min Estimated GFR (MDRD) BUN/Creatinine Ratio (No establ ref range) Glucose (70-99) mg/dL POC Glucose 99 (70-99) mg/dL Calcium (8.5-10.1) mg/dL Total Bilirubin (0.2-1.0) mg/dL Direct Bilirubin (0.0-0.2) mg/dL AST (15-37) U/L ALT (14-59) U/L Alkaline Phosphatase (46-116) U/L Total Protein (6.4-8.2) g/dL Albumin (3.4-5.0) g/dL Globulin Albumin/Globulin Ratio Result Diagrams: 08/21/21 06:15 08/21/21 06:15 Christiano Results Last 24 hrs: Microbiology 08/15/21 09:35 Aerobic Blood Culture - Final Blood - Venous - Lab Draw NO GROWTH AFTER 5 DAYS Anaerobic Blood Culture - Final NO GROWTH AFTER 5 DAYS 08/15/21 08:29 Aerobic Blood Culture - Final Blood - Venous - Iv Start NO GROWTH AFTER 5 DAYS Anaerobic Blood Culture - Final Sepsis Event Note - Evaluation Sepsis Screening Result: No Definite Risk - Focused Exam Vital Signs: Vital Signs Temp Pulse Pulse Resp BP BP Pulse Ox 08/20/21 08:42 96 145/89 H 08/20/21 03:17 96.4 F L 74 22 H 125/84 94 L 08/20/21 00:00 97.6 F 88 20 122/93 H 97 - Problem List Review Problem List Initiated/Reviewed/Updated: No - My Orders Last 24 Hours: My Active Orders 08/20/21 14:00 Warfarin [Coumadin] 0.5 mg PO ONETIME ONE 08/21/21 05:11 CBC WITH AUTO DIFF [HEME] AM INR,PT,PROTHROMBIN TIME [COAG] AM 08/21/21 06:00 BILIRUBIN DIRECT [CHEM] DAILY CMP [COMPREHENSIVE METABOLIC PN,CMP] [CHEM] DAILY 08/22/21 05:11 CBC WITH AUTO DIFF [HEME] AM INR,PT,PROTHROMBIN TIME [COAG] AM 08/22/21 06:00 BILIRUBIN DIRECT [CHEM] DAILY CMP [COMPREHENSIVE METABOLIC PN,CMP] [CHEM] DAILY - Plan Plan:: COVID pneumonia, test was done on Aug 13. ? vaccination status. Hypoxia: on 2 L . CXR ( Aug 17) showed + infiltrates and B pleural effusion: DC IVF . Pulse ox: 99% on RA. Remdesivir: completed, Dexamethasone, Zosyn. Her Procalcitonin came back 0.09 AFib with RVR: off/ on episode of RVR. off Cardizem drip and IVF. rate is controlled now. C Cardizem PO. 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 Pharmacy to dose H/o CHF per records: Decrease Lasix to daily. For outpt echo through her PCP. For discharge awaiting daughter to reach from out of town Full code as per pt request,
[2021-08-20] MEDS ORDERED: Potassium Chloride 10 MEQ Tab.ER PO ONE (10:12)
[2021-08-20] MEDS: LORazepam 0.5 MG Tab PO PRN (23:05)
[2021-08-20] MEDS: Acetaminophen 500 MG Tab PO PRN (23:06)
[2021-08-21] MEDS: Omeprazole 20 MG Cap.CR PO SCH (05:57)
[2021-08-21 07:11] LABS: ANION GAP 12.2 mEq/L (7-13)
[2021-08-21 08:26] VITALS: BP 146/91; PULSE 94
[2021-08-21] MEDS: Potassium Chloride 10 MEQ Tab.ER PO SCH (08:27)
[2021-08-21] MEDS: Vitamin E (dl-alpha-tocopherol acetate) 400 Unit Cap PO SCH (08:27)
[2021-08-21] MEDS: Carvedilol 25 MG Tab PO SCH (08:28)
[2021-08-21] MEDS: Dexamethasone 4 MG/ML SDV IVPUSH SCH (08:34)
[2021-08-21] MEDS: Sodium Chloride 0.9% 10 ML Syringe FLUSH PRN ×2 (08:35→08:40)
--- NOTE | 2021-08-21 08:41 | PCM.DCSUM1 ---
Discharge Summary - Hospital Course Free Text/Narrative:: Pt presents to ER with c/o shortness of breath and cough. She was recently diagnosed with COVID on Aug 13. Pt was doing well at home until last night. She had an outpatient order from clinic to receive IV Regeneron, but due to a supply issue she was not able to receive the infusion. Pt admits to feeling a fast HR, but denies chest pain. She is chronically anticoagulated on Coumadin for A-fib. She is unsure of fever or chills. She claims she had a COVID vaccine, but does not know when. COVID pneumonia, test was done on Aug 13. Procalcitonin on admission 0.09 . Hypoxia: on 2 L . CXR ( Aug 17) showed + infiltrates and B pleural effusion: DC IVF . Remdesivir: completed, Dexamethasone, Zosyn. Much improved. Pulse OX 98% on RA AFib with RVR: off/ on episode of RVR. treated Cardizem drip and IVF for 12 hrs then stopped. rate is controlled since. Continue with Cardizem PO. 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 D/W Pharmacy: may use Warfarin 1.5 mg daily and to have labs on Monday. H/o CHF per records: resume Lasix daily. Full code as per pt request, Diagnosis: Stroke: No - Discharge Data Discharge Date: 08/21/21 Discharge Disposition: Home, Self-Care 01 Condition: Good - Referral to Home Health Date of Face to Face Encounter: 08/21/21 Primary Care Physician: PCP None Skilled Need: Follow up post discharge, education post COVID - Patient Summary/Data Consults: Consultations 08/15/21 14:30 Respiratory Care Assess and Treatment [CONS] Routine - Patient Instructions Diet: Heart Healthy Diet Fluid Restriction: 1500 mL Activity: As Tolerated Notify Provider of: Fever, Increased Pain, Swelling and Redness, Drainage, Nausea and/or Vomiting Other/Special Instructions: Needs CBC, BMP , INR on Monday. Pt to follow up with results through her PCP. - Discharge Plan *PRESCRIPTION DRUG MONITORING PROGRAM REVIEWED*: Not Applicable *COPY OF PRESCRIPTION DRUG MONITORING REPORT IN PATIENT JIN: Not Applicable Prescriptions/Med Rec: Warfarin [Coumadin] 1.5 mg PO DAILY 7 Days #7 tab Home Medications: Home Meds LORazepam 0.5 mg PO BEDTIME PRN 08/18/15 [History] Lutein 1 tab PO DAILY 08/18/15 [History] Methylcellulose [Citrucel] 2 tab PO DAILY 08/18/15 [History] Omeprazole [Prilosec] 20 mg PO BID 08/18/15 [History] Vitamin E 400 units PO DAILY 08/18/15 [History] Potassium Chloride [Klor-Con 10] 10 meq PO DAILY 08/15/21 [History] carvediloL [Carvedilol] 25 mg PO BID 08/15/21 [History] Acetaminophen [Tylenol Extra Strength] 500 mg PO Q6H PRN tablet 08/21/21 [Rx] Furosemide [Lasix] 20 mg PO DAILY tablet 08/21/21 [Rx] Warfarin [Coumadin] 1.5 mg PO DAILY 7 Days #7 tab 08/21/21 [Rx] carvediloL [Coreg] 25 mg PO BID tablet 08/21/21 [Rx] Oxygen Therapy Mode: Room Air Forms: ED Department Discharge Referrals: Debo Orozco NP [Ordering Only Provider] - - Discharge Summary/Plan Comment DC Time >30 min.: Yes Total # of Minutes for Discharge Time: 40 min - Patient Data Vitals - Most Recent: Last Vital Signs Temp 97.4 F 08/21/21 08:00 Pulse 94 08/21/21 08:28 Resp 20 08/21/21 08:00 BP 146/91 H 08/21/21 08:28 Pulse Ox 98 08/21/21 08:00 Weight - Most Recent: 144 lb I&O - Last 24 hours: Intake & Output 08/20/21 08/21/21 08/21/21 22:59 06:59 14:59 Intake Total 300 500 Balance 300 500 Lab Results - Last 24 hrs: Laboratory Results - last 24 hr 08/20/21 08/20/21 08/20/21 Range/Units 08:34 11:40 16:49 WBC (5.0-10.0) 10^3/uL RBC (4.2-5.4) 10^6/uL Hgb (12.0-16.0) g/dL Hct (37.0-47.0) % MCV (80-100) fL MCH (27.0-34.0) pg MCHC (33.0-35.0) g/dL Plt Count (150-450) 10^3/uL Neut % (Auto) (42.2-75.2) % Lymph % (Auto) (20.5-50.1) % [place] % (Auto) (2-8) % Eos % (Auto) (1.0-3.0) % Baso % (Auto) (0.0-1.0) % PT (9.0-12.0) SEC INR (0.9-1.2) Sodium (136-145) mmol/L Potassium (3.5-5.1) mmol/L Chloride (98-107) mmol/L Carbon Dioxide (21-32) mmol/L Anion Gap (7-13) mEq/L BUN (7-18) mg/dL Creatinine (0.55-1.02) mg/dL Est Cr Clr Drug Dosing mL/min Estimated GFR (MDRD) BUN/Creatinine Ratio (No establ ref range) Glucose (70-99) mg/dL POC Glucose 99 99 136 H (70-99) mg/dL Calcium (8.5-10.1) mg/dL Total Bilirubin (0.2-1.0) mg/dL Direct Bilirubin (0.0-0.2) mg/dL AST (15-37) U/L ALT (14-59) U/L Alkaline Phosphatase (46-116) U/L Total Protein (6.4-8.2) g/dL Albumin (3.4-5.0) g/dL Globulin Albumin/Globulin Ratio 08/20/21 08/21/21 08/21/21 Range/Units 20:20 06:15 06:15 WBC 6.1 (5.0-10.0) 10^3/uL RBC 4.10 L (4.2-5.4) 10^6/uL Hgb 12.7 (12.0-16.0) g/dL Hct 37.8 (37.0-47.0) % MCV 92.2 (80-100) fL MCH 31.0 (27.0-34.0) pg MCHC 33.6 (33.0-35.0) g/dL Plt Count 119 L (150-450) 10^3/uL Neut % (Auto) 66.5 (42.2-75.2) % Lymph % (Auto) 22.5 (20.5-50.1) % [place] % (Auto) 10.8 H (2-8) % Eos % (Auto) 0.2 L (1.0-3.0) % Baso % (Auto) 0.0 (0.0-1.0) % PT 22.3 H (9.0-12.0) SEC INR 2.3 H (0.9-1.2) Sodium (136-145) mmol/L Potassium (3.5-5.1) mmol/L Chloride (98-107) mmol/L Carbon Dioxide (21-32) mmol/L Anion Gap (7-13) mEq/L BUN (7-18) mg/dL Creatinine (0.55-1.02) mg/dL Est Cr Clr Drug Dosing mL/min Estimated GFR (MDRD) BUN/Creatinine Ratio (No establ ref range) Glucose (70-99) mg/dL POC Glucose 129 H (70-99) mg/dL Calcium (8.5-10.1) mg/dL Total Bilirubin (0.2-1.0) mg/dL Direct Bilirubin (0.0-0.2) mg/dL AST (15-37) U/L ALT (14-59) U/L Alkaline Phosphatase (46-116) U/L Total Protein (6.4-8.2) g/dL Albumin (3.4-5.0) g/dL Globulin Albumin/Globulin Ratio 08/21/21 08/21/21 Range/Units 06:15 08:21 WBC (5.0-10.0) 10^3/uL RBC (4.2-5.4) 10^6/uL Hgb (12.0-16.0) g/dL Hct (37.0-47.0) % MCV (80-100) fL MCH (27.0-34.0) pg MCHC (33.0-35.0) g/dL Plt Count (150-450) 10^3/uL Neut % (Auto) (42.2-75.2) % Lymph % (Auto) (20.5-50.1) % [place] % (Auto) (2-8) % Eos % (Auto) (1.0-3.0) % Baso % (Auto) (0.0-1.0) % PT (9.0-12.0) SEC INR (0.9-1.2) Sodium 138 (136-145) mmol/L Potassium 4.2 (3.5-5.1) mmol/L Chloride 103 (98-107) mmol/L Carbon Dioxide 27 (21-32) mmol/L Anion Gap 12.2 (7-13) mEq/L BUN 24 H (7-18) mg/dL Creatinine 1.11 H (0.55-1.02) mg/dL Est Cr Clr Drug Dosing 35.34 mL/min Estimated GFR (MDRD) 46 BUN/Creatinine Ratio 21.6 (No establ ref range) Glucose 100 H (70-99) mg/dL POC Glucose 96 (70-99) mg/dL Calcium 8.2 L (8.5-10.1) mg/dL Total Bilirubin 0.9 (0.2-1.0) mg/dL Direct Bilirubin 0.4 H (0.0-0.2) mg/dL AST 26 (15-37) U/L ALT 32 (14-59) U/L Alkaline Phosphatase 50 (46-116) U/L Total Protein 6.0 L (6.4-8.2) g/dL Albumin 2.8 L (3.4-5.0) g/dL Globulin 3.2 Albumin/Globulin Ratio 0.88 PATRICK Results - Last 24 hrs: Microbiology 08/15/21 09:35 Aerobic Blood Culture - Final Blood - Venous - Lab Draw NO GROWTH AFTER 5 DAYS Anaerobic Blood Culture - Final NO GROWTH AFTER 5 DAYS 08/15/21 08:29 Aerobic Blood Culture - Final Blood - Venous - Iv Start NO GROWTH AFTER 5 DAYS Anaerobic Blood Culture - Final Med Orders - Current: Current Medications Acetaminophen (Acetaminophen 500 Mg Tab) 500 mg PO Q6H PRN PRN Reason: Pain/Fever Last Admin: 08/20/21 23:06 Dose: 500 mg Documented by: Albuterol (Albuterol 0.083% 2.5 Mg/3 Ml Neb Soln) 2.5 mg NEB Q2H PRN PRN Reason: shortness of breath/wheezing Albuterol/Ipratropium (Albuterol/Ipratropium 3.0-0.5 Mg/3 Ml Neb Soln) 3 ml NEB Q6H PRN PRN Reason: Dyspnea Last Admin: 08/19/21 04:26 Dose: 3 ml Documented by: Carvedilol (Carvedilol 25 Mg Tab) 25 mg PO BID [facility] Last Admin: 08/21/21 08:28 Dose: 25 mg Documented by: Dexamethasone (Dexamethasone 4 Mg/Ml Sdv) 6 mg IVPUSH DAILY [facility] Last Admin: 08/21/21 08:34 Dose: 6 mg Documented by: Docusate Sodium (Docusate Sodium 100 Mg Cap) 100 mg PO BID PRN PRN Reason: Constipation Furosemide (Furosemide 20 Mg Tab) 20 mg PO DAILY [facility] Last Admin: 08/21/21 08:29 Dose: 20 mg Documented by: Lorazepam (Lorazepam 0.5 Mg Tab) 0.5 mg PO Q6H PRN PRN Reason: Anxiety Last Admin: 08/20/21 23:05 Dose: 0.5 mg Documented by: Methylcellulose (Methylcellulose 500 Mg Tab) 1,000 mg PO DAILY [facility] Last Admin: 08/21/21 08:28 Dose: 1,000 mg Documented by: Omeprazole (Omeprazole 20 Mg Cap.Cr) 20 mg PO BID@0600,2100 [facility] Last Admin: 08/21/21 05:57 Dose: 20 mg Documented by: Ondansetron HCl (Ondansetron 4 Mg/2 Ml Sdv) 4 mg IVPUSH Q6H PRN PRN Reason: Nausea/Vomiting Potassium Chloride (Potassium Chloride 10 Meq Tab.Er) 20 meq PO BID [facility] Last Admin: 08/21/21 08:27 Dose: 20 meq Documented by: Sodium Chloride (Sodium Chloride 0.9% 10 Ml Syringe) 10 ml FLUSH ASDIRECTED PRN PRN Reason: Keep Vein Open Last Admin: 08/21/21 08:40 Dose: 10 ml Documented by: Vitamin E (Vitamin E (Xb-Athcd-Liniluwnhw Acetate) 400 Unit Cap) 400 units PO DAILY [facility] Last Admin: 08/21/21 08:27 Dose: 400 units Documented by: Warfarin Sodium (Pharmacy To Dose - Warfarin) 1 dose .XX ASDIRECTED [facility] Warfarin Sodium (Warfarin 1 Mg Tab) 1 mg PO ONETIME ONE Stop: 08/21/21 16:01 Discontinued Medications Albuterol/Ipratropium (Albuterol/Ipratropium 3.0-0.5 Mg/3 Ml Neb Soln) 3 ml NEB Q6H [facility] Last Admin: 08/15/21 15:12 Dose: Not Given Documented by: Diltiazem HCl (Diltiazem 25 Mg/5 Ml Sdv) 20 mg IVPUSH ONETIME ONE Stop: 08/15/21 08:49 Last Admin: 08/15/21 09:04 Dose: 20 mg Documented by: Diltiazem HCl (Diltiazem Ir 30 Mg Tab) 30 mg PO Q12HR [facility] Furosemide (Furosemide 20 Mg Tab) 20 mg PO BIDMEALS [facility] Last Admin: 08/18/21 17:07 Dose: 20 mg Documented by: Furosemide (Furosemide 20 Mg Tab) 20 mg PO BID@0800,1400 [facility] Last Admin: 08/20/21 08:42 Dose: 20 mg Documented by: Diltiazem HCl 125 mg/ Sodium (Chloride) 125 mls @ 10 mls/hr IV TITRATE [facility]; Protocol Last Admin: 08/16/21 06:19 Dose: 5 mg/hr, 5 mls/hr Documented by: Remdesivir 200 mg/ Sodium (Chloride) 250 mls @ 250 mls/hr IV ONETIME ONE Stop: 08/15/21 16:59 Last Admin: 08/15/21 17:09 Dose: 250 mls/hr Documented by: Remdesivir 100 mg/ Sodium (Chloride) 100 mls @ 100 mls/hr IV Q24H [facility] Stop: 08/19/21 16:59 Last Admin: 08/19/21 16:11 Dose: 100 mls/hr Documented by: Piperacillin Sod/Tazobactam (Sod 3.375 gm/ Sodium Chloride) 100 mls @ 200 mls/hr IV Q6H [facility] Last Admin: 08/20/21 08:46 Dose: 200 mls/hr Documented by: Diltiazem HCl 125 mg/ Sodium (Chloride) 125 mls @ 5 mls/hr IV TITRATE [facility]; Protocol Last Admin: 08/17/21 06:14 Dose: 5 mg/hr, 5 mls/hr Documented by: Sodium Chloride (Normal Saline) 1,000 mls @ 60 mls/hr IV ASDIRECTED [facility]ULO Last Infusion: 08/17/21 09:44 Dose: 10 mls/hr Documented by: Potassium Chloride (Potassium Chloride 10 Meq Tab.Er) 10 meq PO DAILY [facility] Last Admin: 08/18/21 09:02 Dose: 10 meq Documented by: Potassium Chloride (Potassium Chloride 10 Meq Tab.Er) 40 meq PO ONETIME ONE Stop: 08/20/21 10:13 Last Admin: 08/20/21 11:42 Dose: 40 meq Documented by: Warfarin Sodium (Warfarin 2.5 Mg Tab) 2.5 mg PO DAILY@1400 [facility] Warfarin Sodium (Warfarin 2.5 Mg Tab) 2.5 mg PO ONETIME ONE Stop: 08/15/21 17:01 Last Admin: 08/15/21 17:17 Dose: 2.5 mg Documented by: Warfarin Sodium (Warfarin 1 Mg Tab) 0.5 mg PO ONETIME ONE Stop: 08/16/21 14:01 Last Admin: 08/16/21 14:56 Dose: 0.5 mg Documented by: Warfarin Sodium (Warfarin 1 Mg Tab) 0.5 mg PO ONETIME ONE Stop: 08/18/21 14:01 Last Admin: 08/18/21 15:31 Dose: 0.5 mg Documented by: Warfarin Sodium (Warfarin 1 Mg Tab) 0.5 mg PO ONETIME ONE Stop: 08/19/21 14:01 Last Admin: 08/19/21 13:50 Dose: 0.5 mg Documented by: Warfarin Sodium (Warfarin 1 Mg Tab) 0.5 mg PO ONETIME ONE Stop: 08/20/21 14:01 Last Admin: 08/20/21 14:37 Dose: 0.5 mg Documented by:
[2021-08-21] MEDS ORDERED: Furosemide 20 MG Tab PO SCH (09:00)
[2021-08-21] MEDS: Acetaminophen 500 MG Tab PO PRN (10:51)
[2021-08-21] MEDS: LORazepam 0.5 MG Tab PO PRN (10:53)
== END 2021-08-21 15:10 | disposition home or self-care (01) | DRG 177 ==
LOC: DL.ED 08:09 → DL.MS 11:50
PROVIDERS: ADMIT Internal Medicine; ATTEND Internal Medicine
PROC: 8E0ZXY6 Isolation (ICD-10-PCS; principal; 2021-08-15)
DX: U07.1 COVID-19 (principal); J12.82 Pneumonia due to coronavirus disease 2019; I26.99 Other pulmonary embolism without acute cor pulmonale; I48.91 Unspecified atrial fibrillation; E87.6 Hypokalemia; I50.9 Heart failure, unspecified; R09.02 Hypoxemia; Z97.3 Presence of spectacles and contact lenses; K21.9 Gastro-esophageal reflux disease without esophagitis; F41.9 Anxiety disorder, unspecified; Z86.718 Personal history of other venous thrombosis and embolism; Z86.711 Personal history of pulmonary embolism; Z79.01 Long term (current) use of anticoagulants; Z79.899 Other long term (current) drug therapy; Z88.1 Allergy status to other antibiotic agents
CPT/HCPCS: 36415; 71045; 71250; 80053; 82248; 82728; 82947; 83605; 83880; 84145; 84484; 85025; 85379; 85610; 85730; 86140; 87040; 93005; 94640; 96365; 96366; 99285-25; A9270-GY; J1100; J2543; J3490; J7030; J7050; J7620-GY

== ENCOUNTER 2021-09-16 14:34 | Inpatient (IN) | payer MEDICARE, BC ==
[2021-09-16] MEDS ORDERED: Diltiazem 25 MG/5 ML SDV IVPUSH ONE (15:02)
[2021-09-16] MEDS: Sodium Chloride 0.9% 10 ML Syringe FLUSH PRN ×2 (15:16→16:23)
--- NOTE | 2021-09-16 15:18 | EDM.PDOC ---
ED HPI GENERAL MEDICAL PROBLEM - General Chief Complaint: Possible Sepsis Stated Complaint: AMBULANCE Time Seen by Provider: 09/16/21 15:13 Source of Information: Reports: Patient, EMS History Limitations: Reports: Altered Mental Status - History of Present Illness INITIAL COMMENTS - FREE TEXT/NARRATIVE: 86 y/o F brought in by EMS for weakness and not acting right. Pt reportedly fell Monday and hit her head but was not evaluated. Was seen here last month for afib RVR and COVID. Is on Warfarin. Pt c/o R lower quad abd pn and bilateral lower back pn. She does not know the date or where she is but does know the year. No known hx of dementia. Denies aguirre, vision prob, cp, db, extremity pn, loc, diff voiding, constipation, NVD, drugs, etoh. Middle Back Pain Score (Numeric/FACES): 8 - Related Data Allergies Allergy/AdvReac Type Severity Reaction Status Date / Time levofloxacin [From Levaquin] Allergy Unknown Other Verified 08/15/21 08:38 Home Meds: Home Meds LORazepam 0.5 mg PO BEDTIME PRN 08/18/15 [History] Lutein 1 tab PO DAILY 08/18/15 [History] Methylcellulose [Citrucel] 2 tab PO DAILY 08/18/15 [History] Omeprazole [Prilosec] 20 mg PO BID 08/18/15 [History] Vitamin E 400 units PO DAILY 08/18/15 [History] Potassium Chloride [Klor-Con 10] 10 meq PO DAILY 08/15/21 [History] carvediloL [Carvedilol] 25 mg PO BID 08/15/21 [History] Acetaminophen [Tylenol Extra Strength] 500 mg PO Q6H PRN tablet 08/21/21 [Rx] Albuterol/Ipratropium [DuoNeb 3.0-0.5 MG/3 ML] 3 ml NEB Q6H PRN 15 Days #60 neb 08/21/21 [Rx] Furosemide [Lasix] 20 mg PO DAILY tablet 08/21/21 [Rx] Warfarin [Coumadin] 1.5 mg PO DAILY 7 Days #7 tab 08/21/21 [Rx] carvediloL [Coreg] 25 mg PO BID tablet 08/21/21 [Rx] Past Medical History Other HEENT History: Pt states that she sees well with her glasses Cardiovascular History: Reports: Afib, Blood Clots/VTE/DVT, Other (See Below) Respiratory History: Reports: None Gastrointestinal History: Reports: GERD Genitourinary History: Reports: None [employer] History: Reports: Musculoskeletal History: Reports: None Neurological History: Reports: None Psychiatric History: Reports: Anxiety Endocrine/Metabolic History: Reports: None Hematologic History: Reports: None Immunologic History: Reports: None Oncologic (Cancer) History: Reports: None Dermatologic History: Reports: None - Infectious Disease History Infectious Disease History: Reports: None, Novel Coronavirus Social & Family History - Family History Family Medical History: No Pertinent Family History - Tobacco Use Tobacco Use Status *Q: Never Tobacco User Second Hand Smoke Exposure: Yes - Caffeine Use Caffeine Use: Reports: Coffee - Recreational Drug Use Recreational Drug Use: No - Living Situation & Occupation Living situation: Reports: , Alone Occupation: Retired ED ROS GENERAL - Review of Systems Review Of Systems: Comprehensive ROS is negative, except as noted in HPI. ED EXAM, GENERAL - Physical Exam Exam: See Below Exam Limited By: Altered Mental Status General Appearance: Alert, No Apparent Distress Eye Exam: Bilateral Eye: PERRL (with conjugate gaze) Ears: Normal External Exam, Normal Canal, Hearing Grossly Normal, Normal TMs Nose: Normal Inspection, Normal Mucosa, No Blood Throat/Mouth: Normal Inspection, Normal Lips, Normal Teeth, Normal Gums, Normal Oropharynx, Normal Voice, No Airway Compromise Head: Atraumatic, Normocephalic Neck: Supple, Non-Tender Respiratory/Chest: No Respiratory Distress, Lungs Clear, Normal Breath Sounds Cardiovascular: Tachycardia, Irregularly Irregular, Other (JVD present bilaterally) GI/Abdominal: Soft, Tender (Tender R lower and upper quad) (Female) Exam: Deferred Rectal (Female) Exam: Deferred Back Exam: Normal Inspection, Full Range of Motion Extremities: Other (4+ pedal edema bilaterally) Neurological: Alert, CN II-XII Intact, Other (No physical neurological deficits) Psychiatric: Normal Affect, Normal Mood Skin Exam: Warm, Dry, Intact #1 Interpretation EKG Date: 09/16/21 Time: 14:57 Rhythm: A-Fib Rate (Beats/Min): 132 [place]: Normal P-Wave: Absent QRS: Normal ST-T: Normal QT: Normal Course - Vital Signs Last Recorded V/S: Last Vital Signs Temp 97.8 F 09/16/21 14:47 Pulse 136 H 09/16/21 14:47 Resp 20 09/16/21 14:47 BP 96/84 09/16/21 14:47 Pulse Ox 93 L 09/16/21 14:47 - Orders/Labs/Meds Orders: Active Orders 24 hr Category Date Time Status EKG Documentation Completion [RC] STAT Care 09/16/21 14:44 Active Peripheral IV Care [RC] . DIRECTED Care 09/16/21 14:45 Active CULTURE BLOOD [BC] Stat Lab 09/16/21 15:06 Received CULTURE BLOOD [BC] Stat Lab 09/16/21 15:14 Received UA RFX PATRICK AND CULT IF INDIC [URIN] Stat Lab 09/16/21 14:44 Ordered Sodium Chloride 0.9% [Normal Saline] 500 ml Med 09/16/21 16:15 Active IV .BOLUS Sodium Chloride 0.9% [Saline Flush] Med 09/16/21 14:44 Active 10 ml FLUSH ASDIRECTED PRN Blood Culture x2 Reflex Set [OM.PC] Stat Oth 09/16/21 14:45 Ordered Peripheral IV Insertion Adult [OM.PC] Routine Oth 09/16/21 14:44 Ordered Medication Orders Sodium Chloride (Normal Saline) 500 mls @ 250 mls/hr IV .BOLUS ROMULO Last Admin: 09/16/21 16:23 Dose: 250 mls/hr Documented by: BRITTNI Sodium Chloride (Sodium Chloride 0.9% 10 Ml Syringe) 10 ml FLUSH ASDIRECTED PRN PRN Reason: Keep Vein Open Last Admin: 09/16/21 16:23 Dose: 10 ml Documented by: Admin: 09/16/21 15:16 Dose: 10 ml Documented by: BRITTNI Labs: Laboratory Tests 09/16/21 09/16/21 09/16/21 Range/Units 15:01 15:06 15:06 WBC 8.4 (5.0-10.0) 10^3/uL RBC 3.79 L (4.2-5.4) 10^6/uL Hgb 11.7 L (12.0-16.0) g/dL Hct 35.6 L (37.0-47.0) % MCV 93.9 (80-100) fL MCH 30.9 (27.0-34.0) pg MCHC 32.9 L (33.0-35.0) g/dL Plt Count 231 D (150-450) 10^3/uL Neut % (Auto) 73.6 (42.2-75.2) % Lymph % (Auto) 12.8 L (20.5-50.1) % [place] % (Auto) 12.9 H (2-8) % Eos % (Auto) 0.5 L (1.0-3.0) % Baso % (Auto) 0.2 (0.0-1.0) % PT (9.0-12.0) SEC INR (0.9-1.2) D-Dimer, Quantitative (0-400) ng/mL Sodium 137 (136-145) mmol/L Potassium 4.7 (3.5-5.1) mmol/L Chloride 102 (98-107) mmol/L Carbon Dioxide 22 (21-32) mmol/L Anion Gap 17.7 H (7-13) mEq/L BUN 50 H D (7-18) mg/dL Creatinine 1.73 H (0.55-1.02) mg/dL Est Cr Clr Drug Dosing 21.86 mL/min Estimated GFR (MDRD) 28 BUN/Creatinine Ratio 28.9 (No establ ref range) Glucose 111 H (70-99) mg/dL Lactic Acid (0.4-2.0) mmol/L Calcium 8.5 (8.5-10.1) mg/dL Magnesium 2.4 (1.8-2.4) mg/dL Total Bilirubin 1.0 (0.2-1.0) mg/dL AST 21 (15-37) U/L ALT 27 (14-59) U/L Alkaline Phosphatase 95 (46-116) U/L Troponin I High Sens 11 (<=51) pg/mL C-Reactive Protein 1.4 H (0.0-0.9) mg/dL B-Natriuretic Peptide 519 H (0-100) pg/ml Total Protein 6.5 (6.4-8.2) g/dL Albumin 3.1 L (3.4-5.0) g/dL Globulin 3.4 Albumin/Globulin Ratio 0.91 TSH, Ultra Sensitive 2.81 (0.36-3.74) uIU/mL 09/16/21 09/16/21 Range/Units 15:06 15:06 WBC (5.0-10.0) 10^3/uL RBC (4.2-5.4) 10^6/uL Hgb (12.0-16.0) g/dL Hct (37.0-47.0) % MCV (80-100) fL MCH (27.0-34.0) pg MCHC (33.0-35.0) g/dL Plt Count (150-450) 10^3/uL Neut % (Auto) (42.2-75.2) % Lymph % (Auto) (20.5-50.1) % [place] % (Auto) (2-8) % Eos % (Auto) (1.0-3.0) % Baso % (Auto) (0.0-1.0) % PT 24.6 H (9.0-12.0) SEC INR 2.5 H (0.9-1.2) D-Dimer, Quantitative 681 H (0-400) ng/mL Sodium (136-145) mmol/L Potassium (3.5-5.1) mmol/L Chloride (98-107) mmol/L Carbon Dioxide (21-32) mmol/L Anion Gap (7-13) mEq/L BUN (7-18) mg/dL Creatinine (0.55-1.02) mg/dL Est Cr Clr Drug Dosing mL/min Estimated GFR (MDRD) BUN/Creatinine Ratio (No establ ref range) Glucose (70-99) mg/dL Lactic Acid 1.5 (0.4-2.0) mmol/L Calcium (8.5-10.1) mg/dL Magnesium (1.8-2.4) mg/dL Total Bilirubin (0.2-1.0) mg/dL AST (15-37) U/L ALT (14-59) U/L Alkaline Phosphatase (46-116) U/L Troponin I High Sens (<=51) pg/mL C-Reactive Protein (0.0-0.9) mg/dL B-Natriuretic Peptide (0-100) pg/ml Total Protein (6.4-8.2) g/dL Albumin (3.4-5.0) g/dL Globulin Albumin/Globulin Ratio TSH, Ultra Sensitive (0.36-3.74) uIU/mL Meds: Medications Generic Name Dose Route Start Last Admin Trade Name Freq PRN Reason Stop Dose Admin Sodium Chloride 500 mls @ 250 mls/hr 09/16/21 16:15 09/16/21 16:23 Normal Saline IV 250 mls/hr .BOLUS ROMULO Administration Sodium Chloride 10 ml 09/16/21 14:44 09/16/21 16:23 Sodium Chloride 0.9% 10 Ml Syringe FLUSH 10 ml ASDIRECTED PRN Administration Keep Vein Open Discontinued Medications Generic Name Dose Route Start Last Admin Trade Name Freq PRN Reason Stop Dose Admin Diltiazem HCl 20 mg 09/16/21 15:02 09/16/21 15:16 Diltiazem 25 Mg/5 Ml Sdv IVPUSH 09/16/21 15:03 10 mg ONETIME ONE Administration Furosemide 80 mg 09/16/21 15:55 09/16/21 16:22 Furosemide 40 Mg/4 Ml Vial IVPUSH 09/16/21 15:56 80 mg ONETIME ONE Administration - Re-Assessments/Exams Free Text/Narrative Re-Assessment/Exam: 09/16/21 17:[address] Lyons, who agreed to admit the pt for inpatient treatment of her CHF exacerbation. Departure - Departure Time of Disposition: 17:26 (Dr. Lyons) Disposition: Admitted As Inpatient 64 Condition: Fair Clinical Impression: Congestive heart failure Qualifiers: Heart failure type: unspecified Heart failure chronicity: acute Qualified Code(s): I50.9 - Heart failure, unspecified - Discharge Information *PRESCRIPTION DRUG MONITORING PROGRAM REVIEWED*: Not Applicable *COPY OF PRESCRIPTION DRUG MONITORING REPORT IN PATIENT JIN: Not Applicable Forms: ED Department Discharge Sepsis Event Note (ED) - Evaluation Sepsis Screening Result: No Definite Risk - Focused Exam Vital Signs: Vital Signs Temp Pulse Resp BP Pulse Ox 09/16/21 14:47 97.8 F 136 H 20 96/84 93 L - My Orders Last 24 Hours: My Active Orders 09/16/21 14:44 EKG Documentation Completion [RC] STAT UA RFX PATRICK AND CULT IF INDIC [URIN] Stat Sodium Chloride 0.9% [Saline Flush] 10 ml FLUSH ASDIRECTED PRN Peripheral IV Insertion Adult [OM.PC] Routine 09/16/21 14:45 Peripheral IV Care [RC] . DIRECTED Blood Culture x2 Reflex Set [OM.PC] Stat 09/16/21 15:06 CULTURE BLOOD [BC] Stat 09/16/21 15:14 CULTURE BLOOD [BC] Stat 09/16/21 16:15 Sodium Chloride 0.9% [Normal Saline] 500 ml IV .BOLUS - Assessment/Plan Last 24 Hours: My Active Orders 09/16/21 14:44 EKG Documentation Completion [RC] STAT UA RFX PATRICK AND CULT IF INDIC [URIN] Stat Sodium Chloride 0.9% [Saline Flush] 10 ml FLUSH ASDIRECTED PRN Peripheral IV Insertion Adult [OM.PC] Routine 09/16/21 14:45 Peripheral IV Care [RC] . DIRECTED Blood Culture x2 Reflex Set [OM.PC] Stat 09/16/21 15:06 CULTURE BLOOD [BC] Stat 09/16/21 15:14 CULTURE BLOOD [BC] Stat 09/16/21 16:15 Sodium Chloride 0.9% [Normal Saline] 500 ml IV .BOLUS
[2021-09-16 15:51] LABS: ANION GAP 17.7 mEq/L (7-13)
[2021-09-16] MEDS ORDERED: Furosemide 40 MG/4 ML VIAL IVPUSH ONE (15:55)
--- NOTE | 2021-09-16 16:07 | CR ---
PROCEDURE INFORMATION: Exam: XR Chest Exam date and time: 09/16/2021 3:41 PM Age: 86 years old Clinical indication: Other: Tachycardic; Additional info: AMS, tachycardic TECHNIQUE: Imaging protocol: XR of the chest. Views: 1 view. COMPARISON: CR Chest 1V Frontal 08/17/2021 9:31 AM FINDINGS: Lungs: The pulmonary vasculature is not engorged. There appears to be a 1.8 cm mass in the right hilum which seems new since the prior study. This may be superimposition of shadows. The pulmonary vasculature is not engorged. There are nonspecific ground-glass opacities in both lungs. Pleural spaces: There is a small left pleural fluid collection present. Heart/Mediastinum: TheThe heart is not enlarged. Bones/joints: Unremarkable IMPRESSION: 1. Small left pleural effusion. 2. Nonspecific ground-glass opacities in the lungs. The differential diagnosis includes viral pneumonia. 3. Right hilar mass versus superimposition of shadows.
[2021-09-16] MEDS ORDERED: Sodium Chloride 0.9% 500 ML IV SCH (16:15)
--- NOTE | 2021-09-16 16:26 | CT ---
PROCEDURE INFORMATION: Exam: CT Head Without Contrast Exam date and time: 09/16/2021 4:09 PM Age: 86 years old Clinical indication: Altered mental status/memory loss; Age related cognitive decline; Additional info: Fell hit head on blood thinners. TECHNIQUE: Imaging protocol: Computed tomography of the head without contrast. Radiation optimization: All CT scans at this facility use at least one of these dose optimization techniques: automated exposure control; mA and/or kV adjustment per patient size (includes targeted exams where dose is matched to clinical indication); or iterative reconstruction. COMPARISON: No relevant prior studies available. FINDINGS: Brain: Patchy deep white matter low-attenuation zones are seen. There is no significant midline shift. There is no evidence of acute hemorrhage within the brain parenchyma or the subarachnoid space. Cerebral ventricles: The ventricular system is normal in size and configuration. Paranasal sinuses: There is fluid in the left maxillary sinus. The remainder of the visualized paranasal sinuses are unremarkable. Mastoid air cells: There is fluid in some of the right mastoid air cells. The left mastoid air cells are unremarkable. Orbital cavity: The orbits are normal. Bones/joints: The skull is normal. Soft tissues: There is a well-defined fluid attenuation in the head of the left caudate nucleus measuring about 5 mm in diameter. The extracranial soft tissues are normal. IMPRESSION: 1. Patchy deep white matter low-attenuation compatible with this age group suggesting chronic subcortical ischemia. 2. 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
--- NOTE | 2021-09-16 16:38 | CT ---
PROCEDURE INFORMATION: Exam: CT Abdomen And Pelvis Without Contrast Exam date and time: 09/16/2021 4:09 PM Age: 86 years old Clinical indication: Abdominal pain; Generalized; Additional info: Fell hit head on blood thinners. TECHNIQUE: Imaging protocol: Computed tomography of the abdomen and pelvis without contrast. Radiation optimization: All CT scans at this facility use at least one of these dose optimization techniques: automated exposure control; mA and/or kV adjustment per patient size (includes targeted exams where dose is matched to clinical indication); or iterative reconstruction. COMPARISON: CT Chest wo Cont 08/15/2021 9:43 AM FINDINGS: Pleural spaces: Moderate bilateral pleural effusions. Areas of subpleural consolidation and interstitial infiltrate in both lung bases, right worse than left. This appears progressed compared with chest CT of 08/15/2021. Heart: Cardiomegaly. Coronary artery calcifications. Mediastinal space: Small esophageal hiatal hernia. Liver: Normal. No mass. Gallbladder and bile ducts: Bulky cholelithiasis. Pancreas: Normal. No ductal dilation. Spleen: Normal. No splenomegaly. Adrenal glands: Normal. No mass. Kidneys and ureters: Low-density lesions in both kidneys have an appearance most consistent with benign cysts. Stomach and bowel: Bulky diverticulosis of the descending colon and sigmoid colon. No evidence of diverticulitis. Appendix: No evidence of appendicitis. Intraperitoneal space: Diffuse mesenteric edema. Moderate amount of free fluid in the abdomen and pelvis. The Vasculature: Diffuse vascular calcifications. No abdominal aortic aneurysm. Lymph nodes: Unremarkable. No enlarged lymph nodes. Urinary bladder: Berry catheter in the urinary bladder. Reproductive: Unremarkable as visualized. Bones/joints: Degenerative arthritis in the spine and pelvis. Soft tissues: Diffuse subcutaneous edema. IMPRESSION: 1. Progression of patchy pulmonary infiltrates and peripheral consolidation in the lung bases compared with 08/15/2021. This could be due to sequelae of COVID-19 pneumonia 2. Moderate bilateral pleural effusions appear similar to 08/15/2021. 3. Diffuse mesenteric and subcutaneous edema with moderate amount of free fluid in the abdomen and pelvis 4. Bulky diverticulosis of the colon without evidence of diverticulitis Low-density lesions in both kidneys have an appearance most consistent with benign cysts but are indeterminate without IV contrast and ultrasound should be considered. COMMENTS: Consistent with the [employer]'s Incidental Findings Committee white paper (J Am Cristi Radiol 2018): Any incidental renal lesion less than 1 cm or classified as too small to characterize, or any incidental cystic renal lesion characterized as simple-appearing, is likely benign. No follow-up imaging is recommended for these lesions per consensus recommendations based on imaging criteria.
[2021-09-16] MEDS ORDERED: Albuterol/Ipratropium 3.0-0.5 MG/3 ML Neb Soln NEB PRN (18:46)
[2021-09-16] MEDS ORDERED: Docusate Sodium 100 MG Cap PO PRN (18:50)
[2021-09-16] MEDS ORDERED: Ondansetron 4 MG/2 ML SDV IVPUSH PRN (18:50)
--- NOTE | 2021-09-16 19:18 | PCM.HP ---
H&P History of Present Illness - General Date of Service: 09/16/21 Admit Problem/Dx: Admission Diagnosis/Problem Admission Diagnosis/Problem Heart failure Source of Information: Patient - History of Present Illness Initial Comments - Free Text/Narative: 86-year-old lady with history of atrial fibrillation on chronic anticoagulation, chronic congestive heart failure of unknown ejection fraction, recent cold with 19 infection. The patient recently got into assisted living due to progressive weakness. The patient apparently fell a few days ago. The head but was not further evaluated. She was brought into the emergency room with the weakness, shortness of breath, tachycardia. She was complaining of back pain. The back pain has been present for few days, worse with activity, no associated leg numbness. In the ER the patient was noted to have rapid atrial fibrillation. Was given IV Cardizem and heart rate improved She was noted to have massive lower extremity edema. she was given IV fluids and Lasix. She had good urine output. Berry catheter was placed and draining light-colored urine. Middle Back Pain Score (Numeric/FACES): 8 - Related Data Allergies/Adverse Reactions: Allergies Allergy/AdvReac Type Severity Reaction Status Date / Time levofloxacin [From Levaquin] Allergy Unknown Other Verified 09/16/21 17:37 Home Medications: Home Meds LORazepam 0.5 mg PO BEDTIME PRN 08/18/15 [History] Lutein 1 tab PO DAILY 08/18/15 [History] Methylcellulose [Citrucel] 2 tab PO DAILY 08/18/15 [History] Omeprazole [Prilosec] 20 mg PO BID 08/18/15 [History] Vitamin E 400 units PO DAILY 08/18/15 [History] Potassium Chloride [Klor-Con 10] 10 meq PO DAILY 08/15/21 [History] carvediloL [Carvedilol] 25 mg PO BID 08/15/21 [History] Acetaminophen [Tylenol Extra Strength] 500 mg PO Q6H PRN tablet 08/21/21 [Rx] Albuterol/Ipratropium [DuoNeb 3.0-0.5 MG/3 ML] 3 ml NEB Q6H PRN 15 Days #60 neb 08/21/21 [Rx] Furosemide [Lasix] 20 mg PO DAILY tablet 08/21/21 [Rx] Warfarin [Coumadin] 1.5 mg PO DAILY 7 Days #7 tab 08/21/21 [Rx] carvediloL [Coreg] 25 mg PO BID tablet 08/21/21 [Rx] Past Medical History Other HEENT History: Pt states that she sees well with her glasses Cardiovascular History: Reports: Afib, Blood Clots/VTE/DVT, Other (See Below) Respiratory History: Reports: None Gastrointestinal History: Reports: GERD Genitourinary History: Reports: None 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: Musculoskeletal History: Reports: None Neurological History: Reports: None Psychiatric History: Reports: Anxiety Endocrine/Metabolic History: Reports: None Hematologic History: Reports: None Immunologic History: Reports: None Oncologic (Cancer) History: Reports: None Dermatologic History: Reports: None - Infectious Disease History Infectious Disease History: Reports: None, Novel Coronavirus Social & Family History - Family History Family Medical History: No Pertinent Family History - Tobacco Use Tobacco Use Status *Q: Never Tobacco User Second Hand Smoke Exposure: Yes - Caffeine Use Caffeine Use: Reports: Coffee - Recreational Drug Use Recreational Drug Use: No - Living Situation & Occupation Living situation: Reports: , Alone Occupation: Retired H&P Review of Systems - Review of Systems: Review Of Systems: See Below General: Reports: Malaise, Weakness, Fatigue. Denies: Fever, Chills Pulmonary: Reports: Shortness of Breath Cardiovascular: Reports: Edema. Denies: Chest Pain, Syncope Gastrointestinal: Denies: Abdominal Pain Neurological: Reports: Confusion Exam - Exam Exam: See Below - Vital Signs Vital Signs: Last Vital Signs Temp 97.8 F 09/16/21 14:47 Pulse 136 H 09/16/21 14:47 Resp 20 09/16/21 14:47 BP 96/84 09/16/21 14:47 Pulse Ox 93 L 09/16/21 14:47 Weight: 149 lb - Exam Quality Assessment: No: Supplemental Oxygen General: Alert, Oriented Neck: Supple Lungs: Normal Respiratory Effort, Rhonchi Cardiovascular: Irregular Rhythm GI/Abdominal Exam: Normal Bowel Sounds, Soft, Non-Tender Extremities: Pedal Edema (2-3+) Neuro Extensive - Mental Status: Alert, Oriented x3 Psychiatric: Alert, Normal Affect, Normal Mood - Patient Data Lab Results Last 24 hrs: Laboratory Results - last 24 hr 09/16/21 09/16/21 09/16/21 Range/Units 15:01 15:06 15:06 WBC 8.4 (5.0-10.0) 10^3/uL RBC 3.79 L (4.2-5.4) 10^6/uL Hgb 11.7 L (12.0-16.0) g/dL Hct 35.6 L (37.0-47.0) % MCV 93.9 (80-100) fL MCH 30.9 (27.0-34.0) pg MCHC 32.9 L (33.0-35.0) g/dL Plt Count 231 D (150-450) 10^3/uL Neut % (Auto) 73.6 (42.2-75.2) % Lymph % (Auto) 12.8 L (20.5-50.1) % [place] % (Auto) 12.9 H (2-8) % Eos % (Auto) 0.5 L (1.0-3.0) % Baso % (Auto) 0.2 (0.0-1.0) % PT (9.0-12.0) SEC INR (0.9-1.2) D-Dimer, Quantitative (0-400) ng/mL Sodium 137 (136-145) mmol/L Potassium 4.7 (3.5-5.1) mmol/L Chloride 102 (98-107) mmol/L Carbon Dioxide 22 (21-32) mmol/L Anion Gap 17.7 H (7-13) mEq/L BUN 50 H D (7-18) mg/dL Creatinine 1.73 H (0.55-1.02) mg/dL Est Cr Clr Drug Dosing 21.86 mL/min Estimated GFR (MDRD) 28 BUN/Creatinine Ratio 28.9 (No establ ref range) Glucose 111 H (70-99) mg/dL Lactic Acid (0.4-2.0) mmol/L Calcium 8.5 (8.5-10.1) mg/dL Magnesium 2.4 (1.8-2.4) mg/dL Total Bilirubin 1.0 (0.2-1.0) mg/dL AST 21 (15-37) U/L ALT 27 (14-59) U/L Alkaline Phosphatase 95 (46-116) U/L Troponin I High Sens 11 (<=51) pg/mL C-Reactive Protein 1.4 H (0.0-0.9) mg/dL B-Natriuretic Peptide 519 H (0-100) pg/ml Total Protein 6.5 (6.4-8.2) g/dL Albumin 3.1 L (3.4-5.0) g/dL Globulin 3.4 Albumin/Globulin Ratio 0.91 TSH, Ultra Sensitive 2.81 (0.36-3.74) uIU/mL 09/16/21 09/16/21 Range/Units 15:06 15:06 WBC (5.0-10.0) 10^3/uL RBC (4.2-5.4) 10^6/uL Hgb (12.0-16.0) g/dL Hct (37.0-47.0) % MCV (80-100) fL MCH (27.0-34.0) pg MCHC (33.0-35.0) g/dL Plt Count (150-450) 10^3/uL Neut % (Auto) (42.2-75.2) % Lymph % (Auto) (20.5-50.1) % [place] % (Auto) (2-8) % Eos % (Auto) (1.0-3.0) % Baso % (Auto) (0.0-1.0) % PT 24.6 H (9.0-12.0) SEC INR 2.5 H (0.9-1.2) D-Dimer, Quantitative 681 H (0-400) ng/mL Sodium (136-145) mmol/L Potassium (3.5-5.1) mmol/L Chloride (98-107) mmol/L Carbon Dioxide (21-32) mmol/L Anion Gap (7-13) mEq/L BUN (7-18) mg/dL Creatinine (0.55-1.02) mg/dL Est Cr Clr Drug Dosing mL/min Estimated GFR (MDRD) BUN/Creatinine Ratio (No establ ref range) Glucose (70-99) mg/dL Lactic Acid 1.5 (0.4-2.0) mmol/L Calcium (8.5-10.1) mg/dL Magnesium (1.8-2.4) mg/dL Total Bilirubin (0.2-1.0) mg/dL AST (15-37) U/L ALT (14-59) U/L Alkaline Phosphatase (46-116) U/L Troponin I High Sens (<=51) pg/mL C-Reactive Protein (0.0-0.9) mg/dL B-Natriuretic Peptide (0-100) pg/ml Total Protein (6.4-8.2) g/dL Albumin (3.4-5.0) g/dL Globulin Albumin/Globulin Ratio TSH, Ultra Sensitive (0.36-3.74) uIU/mL Result Diagrams: 09/16/21 15:06 09/16/21 15:06 - Problem List (1) Atrial fibrillation with rapid ventricular response SNOMED Code(s): 376750966627909 ICD Code: I48.91 - UNSPECIFIED ATRIAL FIBRILLATION Status: Acute Current Visit: No (2) Congestive heart failure SNOMED Code(s): 84712491 ICD Code: I50.9 - HEART FAILURE, UNSPECIFIED Status: Acute Current Visit: No Qualifiers: Heart failure type: unspecified Heart failure chronicity: acute Qualified Code(s): I50.9 - Heart failure, unspecified Problem List Initiated/Reviewed/Updated: Yes Orders Last 24hrs: Active Orders 24 hr Category Date Time Status Admission Diagnosis [ADT] Stat ADT 09/16/21 17:27 Ordered Admission Status [Patient Status] [ADT] Routine ADT 09/16/21 17:27 Active Antiembolic Devices [RC] PER UNIT ROUTINE Care 09/16/21 18:50 Active EKG Documentation Completion [RC] STAT Care 09/16/21 14:44 Active Oxygen Therapy [RC] PRN Care 09/16/21 18:50 Active Peripheral IV Care [RC] . DIRECTED Care 09/16/21 14:45 Active RT Aerosol Therapy [RC] ASDIRECTED Care 09/16/21 18:47 Active Telemetry Monitoring [Cardiac Monitoring] [RC] . Care 09/16/21 18:48 Active DIRECTED Up With Assistance [RC] ASDIRECTED Care 09/16/21 18:50 Active VTE/DVT Education [RC] PER UNIT ROUTINE Care 09/16/21 18:50 Active Vital Signs [RC] Q4H Care 09/16/21 18:50 Active OT Evaluation and Treatment [CONS] Routine Cons 09/16/21 18:48 Active PT Evaluation and Treatment [CONS] Routine Cons 09/16/21 18:48 Active Regular Diet [DIET] Diet 09/16/21 Breakfast Active BASIC METABOLIC PANEL,BMP [CHEM] AM Lab 09/17/21 05:11 Ordered CBC WITH AUTO DIFF [HEME] AM Lab 09/17/21 05:11 Ordered CULTURE BLOOD [BC] Stat Lab 09/16/21 15:06 Received CULTURE BLOOD [BC] Stat Lab 09/16/21 15:14 Received CULTURE SPUTUM + SMEAR [RM] Routine Lab 09/16/21 18:36 Ordered MAGNESIUM [CHEM] AM Lab 09/17/21 05:11 Ordered PHOSPHORUS [CHEM] AM Lab 09/17/21 05:11 Ordered UA RFX PATRICK AND CULT IF INDIC [URIN] Stat Lab 09/16/21 14:44 Ordered Acetaminophen [TylenoL] Med 09/16/21 18:50 Active 650 mg PO Q4H PRN Albuterol/Ipratropium [DuoNeb 3.0-0.5 MG/3 ML] Med 09/16/21 18:46 Active 3 ml NEB Q6H PRN Docusate Sodium [Colace] Med 09/16/21 18:50 Active 100 mg PO BID PRN Furosemide [Lasix] Med 09/16/21 23:00 Active 20 mg IVPUSH Q8H Omeprazole Med 09/16/21 21:00 Active 20 mg PO BID Ondansetron [Zofran] Med 09/16/21 18:50 Active 4 mg IVPUSH Q6H PRN Pharmacy to Dose - Warfarin Med 09/16/21 19:00 Ordered 1 dose .XX ASDIRECTED Potassium Chloride [Klor-Con 10] Med 09/17/21 09:00 Active 10 meq PO DAILY Sodium Chloride 0.9% [Saline Flush] Med 09/16/21 14:44 Active 10 ml FLUSH ASDIRECTED PRN Sodium Chloride 0.9% [Saline Flush] Med 09/16/21 18:50 Active 10 ml FLUSH ASDIRECTED PRN Temazepam [Restoril] Med 09/16/21 18:50 Active 15 mg PO BEDTIME PRN carvediloL [Coreg] Med 09/16/21 21:00 Active 25 mg PO BID Antiembolic Hose [OM.PC] Per Unit Routine Oth 09/16/21 18:50 Ordered Blood Culture x2 Reflex Set [OM.PC] Stat Oth 09/16/21 14:45 Ordered Peripheral IV Insertion Adult [OM.PC] Routine Oth 09/16/21 14:44 Ordered Saline Lock Insert [OM.PC] Routine Oth 09/16/21 18:50 Ordered Resuscitation Status Routine Resus Stat 09/16/21 18:50 Ordered Medication Orders Acetaminophen (Acetaminophen 325 Mg Tab) 650 mg PO Q4H PRN PRN Reason: Pain (Mild 1-3)/fever Albuterol/Ipratropium (Albuterol/Ipratropium 3.0-0.5 Mg/3 Ml Neb Soln) 3 ml NEB Q6H PRN PRN Reason: Dyspnea Carvedilol (Carvedilol 25 Mg Tab) 25 mg PO BID [facility] Docusate Sodium (Docusate Sodium 100 Mg Cap) 100 mg PO BID PRN PRN Reason: Constipation Furosemide (Furosemide 20 Mg/2 Ml Vial) 20 mg IVPUSH Q8H [facility] Omeprazole (Omeprazole 20 Mg Cap.Cr) 20 mg PO BID [facility] Ondansetron HCl (Ondansetron 4 Mg/2 Ml Sdv) 4 mg IVPUSH Q6H PRN PRN Reason: Nausea/Vomiting Potassium Chloride (Potassium Chloride 10 Meq Tab.Er) 10 meq PO DAILY [facility] Sodium Chloride (Sodium Chloride 0.9% 10 Ml Syringe) 10 ml FLUSH ASDIRECTED PRN PRN Reason: Keep Vein Open Last Admin: 09/16/21 16:23 Dose: 10 ml Documented by: Admin: 09/16/21 15:16 Dose: 10 ml Documented by: BRITTNI Sodium Chloride (Sodium Chloride 0.9% 10 Ml Syringe) 10 ml FLUSH ASDIRECTED PRN PRN Reason: Keep Vein Open Temazepam (Temazepam 15 Mg Cap) 15 mg PO BEDTIME PRN PRN Reason: Sleep Warfarin Sodium (Pharmacy To Dose - Warfarin) 1 dose .XX ASDIRECTED [facility] Assessment/Plan Comment:: 86-year-old lady presented with back pain. Recent fall and she says she hit the head but did not pass out. She was noted to have tachycardia. Back pain Likely muscular skeletal No lower extremity neurological deficit Treat conservatively History of fall the patient has been on chronic anticoagulation CT head showed no acute bleed likely old ischemic stroke we'll continue secondary prevention with anticoagulation for atrial fibrillation Consult physical and occupational therapy atrial fibrillation with rapid ventricular rate The patient was given Cardizem IV Heart rate improved monitor on telemetry Resume Coreg Acute congestive heart failure Pleural effusion, lower extremity edema We'll obtain echocardiogram Control heart rate Continue Coreg Increase Lasix dose to IV 20 mg every 8 hours Follow electrolytes and renal function Acute renal failure with fluid overload Monitor with diuretics Anticoagulation for atrial fibrillation Continue Coumadin Target INR between 2 and 3 h/o dementia CODE STATUS was discussed with the patient Wish to be DNR called sabino Ordonez [phone]
[2021-09-16] MEDS: Omeprazole 20 MG Cap.CR PO SCH (21:27)
[2021-09-16] MEDS: Carvedilol 25 MG Tab PO SCH (21:27)
[2021-09-17] MEDS: Furosemide 20 MG/2 ML VIAL IVPUSH SCH ×3 (01:50→20:42)
[2021-09-17 07:09] LABS: ANION GAP 15.5 mEq/L (7-13)
[2021-09-17] MEDS: Carvedilol 25 MG Tab PO SCH ×2 (08:28→17:56)
[2021-09-17] MEDS: Potassium Chloride 10 MEQ Tab.ER PO SCH (08:28)
[2021-09-17] MEDS: Omeprazole 20 MG Cap.CR PO SCH ×2 (08:28→16:28)
[2021-09-17] MEDS: Acetaminophen 325 MG Tab PO PRN ×2 (08:55→18:02)
--- NOTE | 2021-09-17 13:18 | PCM.PN ---
- General Info Date of Service: 09/17/21 Admission Dx/Problem (Free Text): Admission Diagnosis/Problem Admission Diagnosis/Problem Heart failure Subjective Update: feeling better the back pain is much improved, moderate, able to turn in bed, no associated LE numbness no sob no cp Functional Status: Reports: Pain Controlled, Tolerating Diet - Review of Systems General: Denies: Fever Pulmonary: Denies: Shortness of Breath Cardiovascular: Reports: Edema (improved). Denies: Chest Pain Gastrointestinal: Denies: Abdominal Pain Neurological: Denies: Confusion - Patient Data Vitals - Most Recent: Last Vital Signs Temp 97.8 F 09/17/21 12:00 Pulse 80 09/17/21 12:00 Resp 19 09/17/21 12:00 BP 95/59 L 09/17/21 12:00 Pulse Ox 95 09/17/21 12:00 Weight - Most Recent: 139 lb 6.4 oz I&O - Last 24 Hours: Intake & Output 09/16/21 09/17/21 09/17/21 22:59 06:59 14:59 Intake Total 360 Output Total 1400 1775 Balance -1400 -1415 Lab Results Last 24 Hours: Laboratory Results - last 24 hr 09/16/21 09/16/21 09/16/21 Range/Units 15:01 15:06 15:06 WBC 8.4 (5.0-10.0) 10^3/uL RBC 3.79 L (4.2-5.4) 10^6/uL Hgb 11.7 L (12.0-16.0) g/dL Hct 35.6 L (37.0-47.0) % MCV 93.9 (80-100) fL MCH 30.9 (27.0-34.0) pg MCHC 32.9 L (33.0-35.0) g/dL Plt Count 231 D (150-450) 10^3/uL Neut % (Auto) 73.6 (42.2-75.2) % Lymph % (Auto) 12.8 L (20.5-50.1) % Gem % (Auto) 12.9 H (2-8) % Eos % (Auto) 0.5 L (1.0-3.0) % Baso % (Auto) 0.2 (0.0-1.0) % PT (9.0-12.0) SEC INR (0.9-1.2) D-Dimer, Quantitative (0-400) ng/mL Sodium 137 (136-145) mmol/L Potassium 4.7 (3.5-5.1) mmol/L Chloride 102 (98-107) mmol/L Carbon Dioxide 22 (21-32) mmol/L Anion Gap 17.7 H (7-13) mEq/L BUN 50 H D (7-18) mg/dL Creatinine 1.73 H (0.55-1.02) mg/dL Est Cr Clr Drug Dosing 21.86 mL/min Estimated GFR (MDRD) 28 BUN/Creatinine Ratio 28.9 (No establ ref range) Glucose 111 H (70-99) mg/dL Lactic Acid (0.4-2.0) mmol/L Calcium 8.5 (8.5-10.1) mg/dL Phosphorus (2.6-4.7) mg/dL Magnesium 2.4 (1.8-2.4) mg/dL Total Bilirubin 1.0 (0.2-1.0) mg/dL AST 21 (15-37) U/L ALT 27 (14-59) U/L Alkaline Phosphatase 95 (46-116) U/L Troponin I High Sens 11 (<=51) pg/mL C-Reactive Protein 1.4 H (0.0-0.9) mg/dL B-Natriuretic Peptide 519 H (0-100) pg/ml Total Protein 6.5 (6.4-8.2) g/dL Albumin 3.1 L (3.4-5.0) g/dL Globulin 3.4 Albumin/Globulin Ratio 0.91 TSH, Ultra Sensitive 2.81 (0.36-3.74) uIU/mL Urine Color (YELLOW) Urine Appearance (CLEAR) Urine pH (5.0-9.0) Ur Specific [place] (1.005-1.030) Urine Protein (NEGATIVE) Urine Glucose (UA) (NEGATIVE) Urine Ketones (NEGATIVE) Urine Occult Blood (NEGATIVE) Urine Nitrite (NEGATIVE) Urine Bilirubin (NEGATIVE) Urine Urobilinogen (0.2-1.0) mg/dL Ur Leukocyte Esterase (NEGATIVE) Urine RBC (0-5) /HPF Urine WBC (0-5/HPF) /HPF Ur Epithelial Cells (NOT SEEN) /HPF Urine Bacteria (0-FEW/HPF) /HPF 09/16/21 09/16/21 09/16/21 Range/Units 15:06 15:06 21:40 WBC (5.0-10.0) 10^3/uL RBC (4.2-5.4) 10^6/uL Hgb (12.0-16.0) g/dL Hct (37.0-47.0) % MCV (80-100) fL MCH (27.0-34.0) pg MCHC (33.0-35.0) g/dL Plt Count (150-450) 10^3/uL Neut % (Auto) (42.2-75.2) % Lymph % (Auto) (20.5-50.1) % Gem % (Auto) (2-8) % Eos % (Auto) (1.0-3.0) % Baso % (Auto) (0.0-1.0) % PT 24.6 H (9.0-12.0) SEC INR 2.5 H (0.9-1.2) D-Dimer, Quantitative 681 H (0-400) ng/mL Sodium (136-145) mmol/L Potassium (3.5-5.1) mmol/L Chloride (98-107) mmol/L Carbon Dioxide (21-32) mmol/L Anion Gap (7-13) mEq/L BUN (7-18) mg/dL Creatinine (0.55-1.02) mg/dL Est Cr Clr Drug Dosing mL/min Estimated GFR (MDRD) BUN/Creatinine Ratio (No establ ref range) Glucose (70-99) mg/dL Lactic Acid 1.5 (0.4-2.0) mmol/L Calcium (8.5-10.1) mg/dL Phosphorus (2.6-4.7) mg/dL Magnesium (1.8-2.4) mg/dL Total Bilirubin (0.2-1.0) mg/dL AST (15-37) U/L ALT (14-59) U/L Alkaline Phosphatase (46-116) U/L Troponin I High Sens (<=51) pg/mL C-Reactive Protein (0.0-0.9) mg/dL B-Natriuretic Peptide (0-100) pg/ml Total Protein (6.4-8.2) g/dL Albumin (3.4-5.0) g/dL Globulin Albumin/Globulin Ratio TSH, Ultra Sensitive (0.36-3.74) uIU/mL Urine Color Yellow (YELLOW) Urine Appearance Clear (CLEAR) Urine pH 5.5 (5.0-9.0) Ur Specific [place] 1.020 (1.005-1.030) Urine Protein Negative (NEGATIVE) Urine Glucose (UA) Negative (NEGATIVE) Urine Ketones Negative (NEGATIVE) Urine Occult Blood Trace-intact H (NEGATIVE) Urine Nitrite Negative (NEGATIVE) Urine Bilirubin Negative (NEGATIVE) Urine Urobilinogen 0.2 (0.2-1.0) mg/dL Ur Leukocyte Esterase Negative (NEGATIVE) Urine RBC 0-5 (0-5) /HPF Urine WBC Not seen (0-5/HPF) /HPF Ur Epithelial Cells Rare (NOT SEEN) /HPF Urine Bacteria Rare (0-FEW/HPF) /HPF 09/17/21 09/17/21 09/17/21 Range/Units 05:15 05:15 05:15 WBC 6.3 (5.0-10.0) 10^3/uL RBC 3.66 L (4.2-5.4) 10^6/uL Hgb 11.2 L (12.0-16.0) g/dL Hct 34.0 L (37.0-47.0) % MCV 92.9 (80-100) fL MCH 30.6 (27.0-34.0) pg MCHC 32.9 L (33.0-35.0) g/dL Plt Count 205 (150-450) 10^3/uL Neut % (Auto) 65.6 (42.2-75.2) % Lymph % (Auto) 20.0 L (20.5-50.1) % Gem % (Auto) 12.8 H (2-8) % Eos % (Auto) 1.3 (1.0-3.0) % Baso % (Auto) 0.3 (0.0-1.0) % PT 26.2 H (9.0-12.0) SEC INR 2.6 H (0.9-1.2) D-Dimer, Quantitative (0-400) ng/mL Sodium 139 (136-145) mmol/L Potassium 3.5 (3.5-5.1) mmol/L Chloride 104 (98-107) mmol/L Carbon Dioxide 23 (21-32) mmol/L Anion Gap 15.5 H (7-13) mEq/L BUN 42 H (7-18) mg/dL Creatinine 1.37 H (0.55-1.02) mg/dL Est Cr Clr Drug Dosing 23.48 mL/min Estimated GFR (MDRD) 36 BUN/Creatinine Ratio (No establ ref range) Glucose 79 (70-99) mg/dL Lactic Acid (0.4-2.0) mmol/L Calcium 8.5 (8.5-10.1) mg/dL Phosphorus 3.8 (2.6-4.7) mg/dL Magnesium 2.1 (1.8-2.4) mg/dL Total Bilirubin (0.2-1.0) mg/dL AST (15-37) U/L ALT (14-59) U/L Alkaline Phosphatase (46-116) U/L Troponin I High Sens (<=51) pg/mL C-Reactive Protein (0.0-0.9) mg/dL B-Natriuretic Peptide (0-100) pg/ml Total Protein (6.4-8.2) g/dL Albumin (3.4-5.0) g/dL Globulin Albumin/Globulin Ratio TSH, Ultra Sensitive (0.36-3.74) uIU/mL Urine Color (YELLOW) Urine Appearance (CLEAR) Urine pH (5.0-9.0) Ur Specific [place] (1.005-1.030) Urine Protein (NEGATIVE) Urine Glucose (UA) (NEGATIVE) Urine Ketones (NEGATIVE) Urine Occult Blood (NEGATIVE) Urine Nitrite (NEGATIVE) Urine Bilirubin (NEGATIVE) Urine Urobilinogen (0.2-1.0) mg/dL Ur Leukocyte Esterase (NEGATIVE) Urine RBC (0-5) /HPF Urine WBC (0-5/HPF) /HPF Ur Epithelial Cells (NOT SEEN) /HPF Urine Bacteria (0-FEW/HPF) /HPF Med Orders - Current: Current Medications Acetaminophen (Acetaminophen 325 Mg Tab) 650 mg PO Q4H PRN PRN Reason: Pain (Mild 1-3)/fever Last Admin: 09/17/21 08:55 Dose: 650 mg Documented by: Albuterol/Ipratropium (Albuterol/Ipratropium 3.0-0.5 Mg/3 Ml Neb Soln) 3 ml NEB Q6H PRN PRN Reason: Dyspnea Carvedilol (Carvedilol 25 Mg Tab) 25 mg PO BIDMEALS [facility] Docusate Sodium (Docusate Sodium 100 Mg Cap) 100 mg PO BID PRN PRN Reason: Constipation Furosemide (Furosemide 20 Mg/2 Ml Vial) 20 mg IVPUSH Q8H [facility] Last Admin: 09/17/21 08:28 Dose: 20 mg Documented by: Lidocaine (Lidocaine 5% 700 Mg Patch) 700 mg TOP DAILY [facility] Omeprazole (Omeprazole 20 Mg Cap.Cr) 20 mg PO BIDAC [facility] Ondansetron HCl (Ondansetron 4 Mg/2 Ml Sdv) 4 mg IVPUSH Q6H PRN PRN Reason: Nausea/Vomiting Potassium Chloride (Potassium Chloride 10 Meq Tab.Er) 10 meq PO DAILY [facility] Last Admin: 09/17/21 08:28 Dose: 10 meq Documented by: Sodium Chloride (Sodium Chloride 0.9% 10 Ml Syringe) 10 ml FLUSH ASDIRECTED PRN PRN Reason: Keep Vein Open Temazepam (Temazepam 15 Mg Cap) 15 mg PO BEDTIME PRN PRN Reason: Sleep Warfarin Sodium (Pharmacy To Dose - Warfarin) 1 dose .XX ASDIRECTED [facility] Warfarin Sodium (Warfarin 1 Mg Tab) 1 mg PO ONETIME ONE Stop: 09/17/21 18:01 Discontinued Medications Carvedilol (Carvedilol 25 Mg Tab) 25 mg PO BID [facility] Last Admin: 09/17/21 08:28 Dose: 25 mg Documented by: Diltiazem HCl (Diltiazem 25 Mg/5 Ml Sdv) 20 mg IVPUSH ONETIME ONE Stop: 09/16/21 15:03 Last Admin: 09/16/21 15:16 Dose: 10 mg Documented by: Furosemide (Furosemide 40 Mg/4 Ml Vial) 80 mg IVPUSH ONETIME ONE Stop: 09/16/21 15:56 Last Admin: 09/16/21 16:22 Dose: 80 mg Documented by: Sodium Chloride (Normal Saline) 500 mls @ 250 mls/hr IV .BOLUS [facility] Last Admin: 09/16/21 16:23 Dose: 250 mls/hr Documented by: Omeprazole (Omeprazole 20 Mg Cap.Cr) 20 mg PO BID [facility] Last Admin: 09/17/21 08:28 Dose: 20 mg Documented by: Sodium Chloride (Sodium Chloride 0.9% 10 Ml Syringe) 10 ml FLUSH ASDIRECTED PRN PRN Reason: Keep Vein Open Last Admin: 09/16/21 16:23 Dose: 10 ml Documented by: Warfarin Sodium (Warfarin 1 Mg Tab) 1 mg PO SuTuThFr@1400 [facility] Last Admin: 09/17/21 01:50 Dose: 1 mg Documented by: Warfarin Sodium (Warfarin 2 Mg Tab) 2 mg PO MoWeSa@1400 [facility] - Exam Quality Assessment: Supplemental Oxygen General: Alert, Oriented Neck: Supple Lungs: Normal Respiratory Effort, Rhonchi Cardiovascular: Regular Rate, Regular Rhythm GI/Abdominal Exam: Normal Bowel Sounds, Soft, Non-Tender Extremities: No Pedal Edema - Patient Data Lab Results Last 24 hrs: Laboratory Results - last 24 hr 09/16/21 09/16/21 09/16/21 Range/Units 15:01 15:06 15:06 WBC 8.4 (5.0-10.0) 10^3/uL RBC 3.79 L (4.2-5.4) 10^6/uL Hgb 11.7 L (12.0-16.0) g/dL Hct 35.6 L (37.0-47.0) % MCV 93.9 (80-100) fL MCH 30.9 (27.0-34.0) pg MCHC 32.9 L (33.0-35.0) g/dL Plt Count 231 D (150-450) 10^3/uL Neut % (Auto) 73.6 (42.2-75.2) % Lymph % (Auto) 12.8 L (20.5-50.1) % Gem % (Auto) 12.9 H (2-8) % Eos % (Auto) 0.5 L (1.0-3.0) % Baso % (Auto) 0.2 (0.0-1.0) % PT (9.0-12.0) SEC INR (0.9-1.2) D-Dimer, Quantitative (0-400) ng/mL Sodium 137 (136-145) mmol/L Potassium 4.7 (3.5-5.1) mmol/L Chloride 102 (98-107) mmol/L Carbon Dioxide 22 (21-32) mmol/L Anion Gap 17.7 H (7-13) mEq/L BUN 50 H D (7-18) mg/dL Creatinine 1.73 H (0.55-1.02) mg/dL Est Cr Clr Drug Dosing 21.86 mL/min Estimated GFR (MDRD) 28 BUN/Creatinine Ratio 28.9 (No establ ref range) Glucose 111 H (70-99) mg/dL Lactic Acid (0.4-2.0) mmol/L Calcium 8.5 (8.5-10.1) mg/dL Phosphorus (2.6-4.7) mg/dL Magnesium 2.4 (1.8-2.4) mg/dL Total Bilirubin 1.0 (0.2-1.0) mg/dL AST 21 (15-37) U/L ALT 27 (14-59) U/L Alkaline Phosphatase 95 (46-116) U/L Troponin I High Sens 11 (<=51) pg/mL C-Reactive Protein 1.4 H (0.0-0.9) mg/dL B-Natriuretic Peptide 519 H (0-100) pg/ml Total Protein 6.5 (6.4-8.2) g/dL Albumin 3.1 L (3.4-5.0) g/dL Globulin 3.4 Albumin/Globulin Ratio 0.91 TSH, Ultra Sensitive 2.81 (0.36-3.74) uIU/mL Urine Color (YELLOW) Urine Appearance (CLEAR) Urine pH (5.0-9.0) Ur Specific [place] (1.005-1.030) Urine Protein (NEGATIVE) Urine Glucose (UA) (NEGATIVE) Urine Ketones (NEGATIVE) Urine Occult Blood (NEGATIVE) Urine Nitrite (NEGATIVE) Urine Bilirubin (NEGATIVE) Urine Urobilinogen (0.2-1.0) mg/dL Ur Leukocyte Esterase (NEGATIVE) Urine RBC (0-5) /HPF Urine WBC (0-5/HPF) /HPF Ur Epithelial Cells (NOT SEEN) /HPF Urine Bacteria (0-FEW/HPF) /HPF 09/16/21 09/16/21 09/16/21 Range/Units 15:06 15:06 21:40 WBC (5.0-10.0) 10^3/uL RBC (4.2-5.4) 10^6/uL Hgb (12.0-16.0) g/dL Hct (37.0-47.0) % MCV (80-100) fL MCH (27.0-34.0) pg MCHC (33.0-35.0) g/dL Plt Count (150-450) 10^3/uL Neut % (Auto) (42.2-75.2) % Lymph % (Auto) (20.5-50.1) % Gem % (Auto) (2-8) % Eos % (Auto) (1.0-3.0) % Baso % (Auto) (0.0-1.0) % PT 24.6 H (9.0-12.0) SEC INR 2.5 H (0.9-1.2) D-Dimer, Quantitative 681 H (0-400) ng/mL Sodium (136-145) mmol/L Potassium (3.5-5.1) mmol/L Chloride (98-107) mmol/L Carbon Dioxide (21-32) mmol/L Anion Gap (7-13) mEq/L BUN (7-18) mg/dL Creatinine (0.55-1.02) mg/dL Est Cr Clr Drug Dosing mL/min Estimated GFR (MDRD) BUN/Creatinine Ratio (No establ ref range) Glucose (70-99) mg/dL Lactic Acid 1.5 (0.4-2.0) mmol/L Calcium (8.5-10.1) mg/dL Phosphorus (2.6-4.7) mg/dL Magnesium (1.8-2.4) mg/dL Total Bilirubin (0.2-1.0) mg/dL AST (15-37) U/L ALT (14-59) U/L Alkaline Phosphatase (46-116) U/L Troponin I High Sens (<=51) pg/mL C-Reactive Protein (0.0-0.9) mg/dL B-Natriuretic Peptide (0-100) pg/ml Total Protein (6.4-8.2) g/dL Albumin (3.4-5.0) g/dL Globulin Albumin/Globulin Ratio TSH, Ultra Sensitive (0.36-3.74) uIU/mL Urine Color Yellow (YELLOW) Urine Appearance Clear (CLEAR) Urine pH 5.5 (5.0-9.0) Ur Specific [place] 1.020 (1.005-1.030) Urine Protein Negative (NEGATIVE) Urine Glucose (UA) Negative (NEGATIVE) Urine Ketones Negative (NEGATIVE) Urine Occult Blood Trace-intact H (NEGATIVE) Urine Nitrite Negative (NEGATIVE) Urine Bilirubin Negative (NEGATIVE) Urine Urobilinogen 0.2 (0.2-1.0) mg/dL Ur Leukocyte Esterase Negative (NEGATIVE) Urine RBC 0-5 (0-5) /HPF Urine WBC Not seen (0-5/HPF) /HPF Ur Epithelial Cells Rare (NOT SEEN) /HPF Urine Bacteria Rare (0-FEW/HPF) /HPF 09/17/21 09/17/21 09/17/21 Range/Units 05:15 05:15 05:15 WBC 6.3 (5.0-10.0) 10^3/uL RBC 3.66 L (4.2-5.4) 10^6/uL Hgb 11.2 L (12.0-16.0) g/dL Hct 34.0 L (37.0-47.0) % MCV 92.9 (80-100) fL MCH 30.6 (27.0-34.0) pg MCHC 32.9 L (33.0-35.0) g/dL Plt Count 205 (150-450) 10^3/uL Neut % (Auto) 65.6 (42.2-75.2) % Lymph % (Auto) 20.0 L (20.5-50.1) % Gem % (Auto) 12.8 H (2-8) % Eos % (Auto) 1.3 (1.0-3.0) % Baso % (Auto) 0.3 (0.0-1.0) % PT 26.2 H (9.0-12.0) SEC INR 2.6 H (0.9-1.2) D-Dimer, Quantitative (0-400) ng/mL Sodium 139 (136-145) mmol/L Potassium 3.5 (3.5-5.1) mmol/L Chloride 104 (98-107) mmol/L Carbon Dioxide 23 (21-32) mmol/L Anion Gap 15.5 H (7-13) mEq/L BUN 42 H (7-18) mg/dL Creatinine 1.37 H (0.55-1.02) mg/dL Est Cr Clr Drug Dosing 23.48 mL/min Estimated GFR (MDRD) 36 BUN/Creatinine Ratio (No establ ref range) Glucose 79 (70-99) mg/dL Lactic Acid (0.4-2.0) mmol/L Calcium 8.5 (8.5-10.1) mg/dL Phosphorus 3.8 (2.6-4.7) mg/dL Magnesium 2.1 (1.8-2.4) mg/dL Total Bilirubin (0.2-1.0) mg/dL AST (15-37) U/L ALT (14-59) U/L Alkaline Phosphatase (46-116) U/L Troponin I High Sens (<=51) pg/mL C-Reactive Protein (0.0-0.9) mg/dL B-Natriuretic Peptide (0-100) pg/ml Total Protein (6.4-8.2) g/dL Albumin (3.4-5.0) g/dL Globulin Albumin/Globulin Ratio TSH, Ultra Sensitive (0.36-3.74) uIU/mL Urine Color (YELLOW) Urine Appearance (CLEAR) Urine pH (5.0-9.0) Ur Specific [place] (1.005-1.030) Urine Protein (NEGATIVE) Urine Glucose (UA) (NEGATIVE) Urine Ketones (NEGATIVE) Urine Occult Blood (NEGATIVE) Urine Nitrite (NEGATIVE) Urine Bilirubin (NEGATIVE) Urine Urobilinogen (0.2-1.0) mg/dL Ur Leukocyte Esterase (NEGATIVE) Urine RBC (0-5) /HPF Urine WBC (0-5/HPF) /HPF Ur Epithelial Cells (NOT SEEN) /HPF Urine Bacteria (0-FEW/HPF) /HPF Result Diagrams: 09/17/21 05:15 09/17/21 05:15 Sepsis Event Note - Evaluation Sepsis Screening Result: No Definite Risk - Focused Exam Vital Signs: Vital Signs Temp Pulse Pulse Resp BP BP Pulse Ox 09/17/21 12:00 97.8 F 80 19 95/59 L 95 09/17/21 08:28 92 120/71 09/17/21 07:52 97.7 F 92 19 120/71 96 09/17/21 04:00 97.4 F 97 16 109/71 97 - Problem List & Annotations (1) Atrial fibrillation with rapid ventricular response SNOMED Code(s): 918759843570210 Code(s): I48.91 - UNSPECIFIED ATRIAL FIBRILLATION Status: Acute Current Visit: No (2) Congestive heart failure SNOMED Code(s): 73259163 Code(s): I50.9 - HEART FAILURE, UNSPECIFIED Status: Acute Current Visit: No Qualifiers: Heart failure type: unspecified Heart failure chronicity: acute Qualified Code(s): I50.9 - Heart failure, unspecified - Problem List Review Problem List Initiated/Reviewed/Updated: Yes - My Orders Last 24 Hours: My Active Orders 09/16/21 18:36 CULTURE SPUTUM + SMEAR [RM] Routine 09/16/21 18:46 Albuterol/Ipratropium [DuoNeb 3.0-0.5 MG/3 ML] 3 ml NEB Q6H PRN 09/16/21 18:47 RT Aerosol Therapy [RC] ASDIRECTED 09/16/21 18:48 Telemetry Monitoring [Cardiac Monitoring] [RC] 08,20 OT Evaluation and Treatment [CONS] Routine PT Evaluation and Treatment [CONS] Routine 09/16/21 18:50 Antiembolic Devices [RC] 08,20 Oxygen Therapy [RC] PRN Up With Assistance [RC] ASDIRECTED VTE/DVT Education [RC] PER UNIT ROUTINE Vital Signs [RC] 00,04,08,12,16,20 Acetaminophen [TylenoL] 650 mg PO Q4H PRN Docusate Sodium [Colace] 100 mg PO BID PRN Ondansetron [Zofran] 4 mg IVPUSH Q6H PRN Sodium Chloride 0.9% [Saline Flush] 10 ml FLUSH ASDIRECTED PRN Temazepam [Restoril] 15 mg PO BEDTIME PRN Antiembolic Hose [OM.PC] Per Unit Routine Saline Lock Insert [OM.PC] Routine Resuscitation Status Routine 09/16/21 19:00 Pharmacy to Dose - Warfarin 1 dose .XX ASDIRECTED 09/16/21 23:00 Furosemide [Lasix] 20 mg IVPUSH Q8H 09/17/21 08:00 Echo Comp wo Cont [US] Routine 09/17/21 09:00 Potassium Chloride [Klor-Con 10] 10 meq PO DAILY 09/17/21 13:15 Lidocaine 5% [Lidoderm 5%] 700 mg TOP DAILY 09/17/21 16:00 Omeprazole 20 mg PO BIDAC 09/17/21 18:00 Warfarin [Coumadin] 1 mg PO ONETIME ONE carvediloL [Coreg] 25 mg PO BIDMEALS 09/18/21 05:11 B-TYPE NATRIURETIC PEPTIDE,BNP [CHEM] AM 09/18/21 06:00 INR,PT,PROTHROMBIN TIME [COAG] DAILY 09/19/21 05:11 B-TYPE NATRIURETIC PEPTIDE,BNP [CHEM] AM 09/19/21 06:00 INR,PT,PROTHROMBIN TIME [COAG] DAILY 09/20/21 05:11 B-TYPE NATRIURETIC PEPTIDE,BNP [CHEM] AM 09/20/21 06:00 INR,PT,PROTHROMBIN TIME [COAG] DAILY 09/21/21 06:00 INR,PT,PROTHROMBIN TIME [COAG] DAILY 09/22/21 06:00 INR,PT,PROTHROMBIN TIME [COAG] DAILY 09/23/21 06:00 INR,PT,PROTHROMBIN TIME [COAG] DAILY 09/24/21 06:00 INR,PT,PROTHROMBIN TIME [COAG] DAILY 09/25/21 06:00 INR,PT,PROTHROMBIN TIME [COAG] DAILY 09/26/21 06:00 INR,PT,PROTHROMBIN TIME [COAG] DAILY 09/27/21 06:00 INR,PT,PROTHROMBIN TIME [COAG] DAILY 09/28/21 06:00 INR,PT,PROTHROMBIN TIME [COAG] DAILY 09/29/21 06:00 INR,PT,PROTHROMBIN TIME [COAG] DAILY 09/30/21 06:00 INR,PT,PROTHROMBIN TIME [COAG] DAILY 10/01/21 06:00 INR,PT,PROTHROMBIN TIME [COAG] DAILY 10/02/21 06:00 INR,PT,PROTHROMBIN TIME [COAG] DAILY 10/03/21 06:00 INR,PT,PROTHROMBIN TIME [COAG] DAILY 10/04/21 06:00 INR,PT,PROTHROMBIN TIME [COAG] DAILY 10/05/21 06:00 INR,PT,PROTHROMBIN TIME [COAG] DAILY 10/06/21 06:00 INR,PT,PROTHROMBIN TIME [COAG] DAILY 10/07/21 06:00 INR,PT,PROTHROMBIN TIME [COAG] DAILY 10/08/21 06:00 INR,PT,PROTHROMBIN TIME [COAG] DAILY 10/09/21 06:00 INR,PT,PROTHROMBIN TIME [COAG] DAILY 10/10/21 06:00 INR,PT,PROTHROMBIN TIME [COAG] DAILY 10/11/21 06:00 INR,PT,PROTHROMBIN TIME [COAG] DAILY 10/12/21 06:00 INR,PT,PROTHROMBIN TIME [COAG] DAILY 10/13/21 06:00 INR,PT,PROTHROMBIN TIME [COAG] DAILY 10/14/21 06:00 INR,PT,PROTHROMBIN TIME [COAG] DAILY 10/15/21 06:00 INR,PT,PROTHROMBIN TIME [COAG] DAILY 10/16/21 06:00 INR,PT,PROTHROMBIN TIME [COAG] DAILY - Plan Plan:: 86-year-old lady presented with back pain. Recent fall and she says she hit the head but did not pass out. She was noted to have tachycardia. Back pain Likely muscular skeletal No lower extremity neurological deficit Treat conservatively add lidoderm patch History of fall the patient has been on chronic anticoagulation CT head showed no acute bleed likely old ischemic stroke we'll continue secondary prevention with anticoagulation for atrial fibrillation Consult physical and occupational therapy atrial fibrillation with rapid ventricular rate The patient was given Cardizem IV Heart rate improved monitor on telemetry continue Coreg Acute systolic congestive heart failure Pleural effusion, lower extremity edema echocardiogram: per tech: ef 40-50 % Control heart rate Continue Coreg Increased Lasix dose to IV 20 mg every 8 hours - adjust to BID cont LE shira stocking Follow electrolytes and renal function Acute renal failure with fluid overload improving Monitor with diuretics Anticoagulation for atrial fibrillation Continue Coumadin Target INR between 2 and 3 h/o dementia CODE STATUS was discussed with the patient Wish to be DNR called sabino Ordonez [phone]
[2021-09-17] MEDS: Lidocaine 5% 700 MG Patch TOP SCH (14:30)
[2021-09-17] MEDS: Sodium Chloride 0.9% 10 ML Syringe FLUSH PRN (20:42)
[2021-09-17] MEDS: Remove Patch **LIDOCAINE PATCH TRDERM SCH (20:48)
[2021-09-17] MEDS: traMADol 50 MG Tab PO PRN (22:39)
[2021-09-18] MEDS: traMADol 50 MG Tab PO PRN ×3 (05:29→18:08)
[2021-09-18] MEDS: Omeprazole 20 MG Cap.CR PO SCH ×2 (05:29→16:40)
[2021-09-18 06:21] LABS: ANION GAP 12.3 mEq/L (7-13)
[2021-09-18] MEDS: Carvedilol 25 MG Tab PO SCH ×2 (09:57→18:09)
[2021-09-18] MEDS: Acetaminophen 325 MG Tab PO PRN ×2 (09:58→20:53)
[2021-09-18] MEDS: Potassium Chloride 10 MEQ Tab.ER PO SCH (09:58)
[2021-09-18] MEDS: Furosemide 20 MG/2 ML VIAL IVPUSH SCH (09:59)
[2021-09-18] MEDS: Lidocaine 5% 700 MG Patch TOP SCH (10:03)
[2021-09-18] MEDS ORDERED: Warfarin 2 MG Tab PO ONE (14:00)
[2021-09-18] MEDS ORDERED: Warfarin 2 MG Tab PO SCH (14:00)
[2021-09-18] MEDS ORDERED: Potassium Chloride 10 MEQ Tab.ER PO ONE (14:14)
--- NOTE | 2021-09-18 14:21 | PCM.PN ---
- General Info Date of Service: 09/18/21 Admission Dx/Problem (Free Text): Admission Diagnosis/Problem Admission Diagnosis/Problem Heart failure Subjective Update: feeling better the back pain is much improved, moderate, able to get out of bed, no associated LE numbness sitting up in chair no sob no cp Functional Status: Reports: Tolerating Diet, Ambulating (little, with walker) - Review of Systems General: Reports: Weakness Pulmonary: Denies: Shortness of Breath Cardiovascular: Reports: Edema (improved). Denies: Chest Pain Genitourinary: Denies: Dysuria Neurological: Denies: Confusion - Patient Data Vitals - Most Recent: Last Vital Signs Temp 96.6 F L 09/18/21 11:59 Pulse 85 09/18/21 11:59 Resp 18 09/18/21 11:59 BP 104/57 L 09/18/21 11:59 Pulse Ox 95 09/18/21 11:59 Weight - Most Recent: 136 lb 12.8 oz I&O - Last 24 Hours: Intake & Output 09/17/21 09/18/21 09/18/21 22:59 06:59 14:59 Intake Total 920 150 Output Total 400 800 450 Balance 520 -650 -450 Lab Results Last 24 Hours: Laboratory Results - last 24 hr 09/18/21 09/18/21 09/18/21 Range/Units 05:20 05:20 05:20 WBC 6.1 (5.0-10.0) 10^3/uL RBC 3.49 L (4.2-5.4) 10^6/uL Hgb 10.8 L (12.0-16.0) g/dL Hct 32.5 L (37.0-47.0) % MCV 93.1 (80-100) fL MCH 30.9 (27.0-34.0) pg MCHC 33.2 (33.0-35.0) g/dL Plt Count 204 (150-450) 10^3/uL Neut % (Auto) 64.2 (42.2-75.2) % Lymph % (Auto) 20.1 L (20.5-50.1) % Catron % (Auto) 13.7 H (2-8) % Eos % (Auto) 1.8 (1.0-3.0) % Baso % (Auto) 0.2 (0.0-1.0) % PT 26.3 H (9.0-12.0) SEC INR 2.7 H (0.9-1.2) Sodium 140 (136-145) mmol/L Potassium 3.3 L (3.5-5.1) mmol/L Chloride 105 (98-107) mmol/L Carbon Dioxide 26 (21-32) mmol/L Anion Gap 12.3 (7-13) mEq/L BUN 33 H (7-18) mg/dL Creatinine 1.30 H (0.55-1.02) mg/dL Est Cr Clr Drug Dosing 24.74 mL/min Estimated GFR (MDRD) 39 Glucose 88 (70-99) mg/dL Calcium 8.2 L (8.5-10.1) mg/dL B-Natriuretic Peptide 536 H (0-100) pg/ml Christiano Results Last 24 Hours: Microbiology 09/16/21 15:14 Aerobic Blood Culture - Preliminary Blood - Arm, Left NO GROWTH AFTER 1 DAY Anaerobic Blood Culture - Preliminary NO GROWTH AFTER 1 DAY 09/16/21 15:06 Aerobic Blood Culture - Preliminary Blood - Arm, Right NO GROWTH AFTER 1 DAY Anaerobic Blood Culture - Preliminary NO GROWTH AFTER 1 DAY Med Orders - Current: Current Medications Acetaminophen (Acetaminophen 325 Mg Tab) 650 mg PO Q4H PRN PRN Reason: Pain (Mild 1-3)/fever Last Admin: 09/18/21 09:58 Dose: 650 mg Documented by: Albuterol/Ipratropium (Albuterol/Ipratropium 3.0-0.5 Mg/3 Ml Neb Soln) 3 ml NEB Q6H PRN PRN Reason: Dyspnea Carvedilol (Carvedilol 25 Mg Tab) 25 mg PO BIDMEALS [facility] Last Admin: 09/18/21 09:57 Dose: 25 mg Documented by: Docusate Sodium (Docusate Sodium 100 Mg Cap) 100 mg PO BID PRN PRN Reason: Constipation Furosemide (Furosemide 20 Mg Tab) 20 mg PO DAILY [facility] Lidocaine (Lidocaine 5% 700 Mg Patch) 700 mg TOP DAILY [facility] Last Admin: 09/18/21 10:03 Dose: 700 mg Documented by: Miscellaneous Information (Remove Patch Lidocaine Patch) 1 ea TRDERM BEDTIME [facility] Last Admin: 09/17/21 20:48 Dose: 1 ea Documented by: Omeprazole (Omeprazole 20 Mg Cap.Cr) 20 mg PO BIDAC [facility] Last Admin: 09/18/21 05:29 Dose: 20 mg Documented by: Ondansetron HCl (Ondansetron 4 Mg/2 Ml Sdv) 4 mg IVPUSH Q6H PRN PRN Reason: Nausea/Vomiting Potassium Chloride (Potassium Chloride 10 Meq Tab.Er) 10 meq PO DAILY [facility] Last Admin: 09/18/21 09:58 Dose: 10 meq Documented by: Sodium Chloride (Sodium Chloride 0.9% 10 Ml Syringe) 10 ml FLUSH ASDIRECTED PRN PRN Reason: Keep Vein Open Last Admin: 09/17/21 20:42 Dose: 10 ml Documented by: Temazepam (Temazepam 15 Mg Cap) 15 mg PO BEDTIME PRN PRN Reason: Sleep Tramadol HCl (Tramadol 50 Mg Tab) 50 mg PO Q6H PRN PRN Reason: Pain Last Admin: 09/18/21 12:03 Dose: 50 mg Documented by: Warfarin Sodium (Pharmacy To Dose - Warfarin) 1 dose .XX ASDIRECTED [facility] Discontinued Medications Carvedilol (Carvedilol 25 Mg Tab) 25 mg PO BID [facility] Last Admin: 09/17/21 08:28 Dose: 25 mg Documented by: Diltiazem HCl (Diltiazem 25 Mg/5 Ml Sdv) 20 mg IVPUSH ONETIME ONE Stop: 09/16/21 15:03 Last Admin: 09/16/21 15:16 Dose: 10 mg Documented by: Furosemide (Furosemide 40 Mg/4 Ml Vial) 80 mg IVPUSH ONETIME ONE Stop: 09/16/21 15:56 Last Admin: 09/16/21 16:22 Dose: 80 mg Documented by: Furosemide (Furosemide 20 Mg/2 Ml Vial) 20 mg IVPUSH Q8H [facility] Last Admin: 09/17/21 08:28 Dose: 20 mg Documented by: Furosemide (Furosemide 20 Mg/2 Ml Vial) 20 mg IVPUSH BID [facility] Last Admin: 09/18/21 09:59 Dose: 20 mg Documented by: Sodium Chloride (Normal Saline) 500 mls @ 250 mls/hr IV .BOLUS [facility] Last Admin: 09/16/21 16:23 Dose: 250 mls/hr Documented by: Omeprazole (Omeprazole 20 Mg Cap.Cr) 20 mg PO BID [facility] Last Admin: 09/17/21 08:28 Dose: 20 mg Documented by: Potassium Chloride (Potassium Chloride 10 Meq Tab.Er) 40 meq PO ONETIME ONE Stop: 09/18/21 14:15 Sodium Chloride (Sodium Chloride 0.9% 10 Ml Syringe) 10 ml FLUSH ASDIRECTED PRN PRN Reason: Keep Vein Open Last Admin: 09/16/21 16:23 Dose: 10 ml Documented by: Warfarin Sodium (Warfarin 1 Mg Tab) 1 mg PO SuTuThFr@1400 [facility] Last Admin: 09/17/21 01:50 Dose: 1 mg Documented by: Warfarin Sodium (Warfarin 2 Mg Tab) 2 mg PO MoWeSa@1400 [facility] Warfarin Sodium (Warfarin 1 Mg Tab) 1 mg PO ONETIME ONE Stop: 09/17/21 18:01 Last Admin: 09/17/21 17:57 Dose: 1 mg Documented by: Warfarin Sodium (Warfarin 2 Mg Tab) 2 mg PO ONETIME ONE Stop: 09/18/21 14:01 - Exam Quality Assessment: No: Supplemental Oxygen General: Alert, Oriented Neck: Supple Lungs: Normal Respiratory Effort, Decreased Breath Sounds Cardiovascular: Irregular Rhythm GI/Abdominal Exam: Normal Bowel Sounds, Soft, Non-Tender Extremities: Pedal Edema (trace) - Patient Data Lab Results Last 24 hrs: Laboratory Results - last 24 hr 09/18/21 09/18/21 09/18/21 Range/Units 05:20 05:20 05:20 WBC 6.1 (5.0-10.0) 10^3/uL RBC 3.49 L (4.2-5.4) 10^6/uL Hgb 10.8 L (12.0-16.0) g/dL Hct 32.5 L (37.0-47.0) % MCV 93.1 (80-100) fL MCH 30.9 (27.0-34.0) pg MCHC 33.2 (33.0-35.0) g/dL Plt Count 204 (150-450) 10^3/uL Neut % (Auto) 64.2 (42.2-75.2) % Lymph % (Auto) 20.1 L (20.5-50.1) % Catron % (Auto) 13.7 H (2-8) % Eos % (Auto) 1.8 (1.0-3.0) % Baso % (Auto) 0.2 (0.0-1.0) % PT 26.3 H (9.0-12.0) SEC INR 2.7 H (0.9-1.2) Sodium 140 (136-145) mmol/L Potassium 3.3 L (3.5-5.1) mmol/L Chloride 105 (98-107) mmol/L Carbon Dioxide 26 (21-32) mmol/L Anion Gap 12.3 (7-13) mEq/L BUN 33 H (7-18) mg/dL Creatinine 1.30 H (0.55-1.02) mg/dL Est Cr Clr Drug Dosing 24.74 mL/min Estimated GFR (MDRD) 39 Glucose 88 (70-99) mg/dL Calcium 8.2 L (8.5-10.1) mg/dL B-Natriuretic Peptide 536 H (0-100) pg/ml Result Diagrams: 09/18/21 05:20 09/18/21 05:20 Christiano Results Last 24 hrs: Microbiology 09/16/21 15:14 Aerobic Blood Culture - Preliminary Blood - Arm, Left NO GROWTH AFTER 1 DAY Anaerobic Blood Culture - Preliminary NO GROWTH AFTER 1 DAY 09/16/21 15:06 Aerobic Blood Culture - Preliminary Blood - Arm, Right NO GROWTH AFTER 1 DAY Anaerobic Blood Culture - Preliminary NO GROWTH AFTER 1 DAY Sepsis Event Note - Evaluation Sepsis Screening Result: No Definite Risk - Focused Exam Vital Signs: Vital Signs Temp Pulse Pulse Resp BP BP Pulse Ox 09/18/21 11:59 96.6 F L 85 18 104/57 L 95 09/18/21 09:57 82 113/68 09/18/21 07:41 97.0 F 76 18 98/62 93 L 09/18/21 04:00 97.4 F 20 106/72 92 L - Problem List & Annotations (1) Atrial fibrillation with rapid ventricular response SNOMED Code(s): 712420793005089 Code(s): I48.91 - UNSPECIFIED ATRIAL FIBRILLATION Status: Acute Current Visit: No (2) Congestive heart failure SNOMED Code(s): 17544144 Code(s): I50.9 - HEART FAILURE, UNSPECIFIED Status: Acute Current Visit: No Qualifiers: Heart failure type: unspecified Heart failure chronicity: acute Qualified Code(s): I50.9 - Heart failure, unspecified - Problem List Review Problem List Initiated/Reviewed/Updated: Yes - My Orders Last 24 Hours: My Active Orders 09/17/21 16:00 Omeprazole 20 mg PO BIDAC 09/17/21 18:00 carvediloL [Coreg] 25 mg PO BIDMEALS 09/17/21 21:00 Remove Patch 1 ea TRDERM BEDTIME 09/17/21 21:52 traMADol [Ultram] 50 mg PO Q6H PRN 09/19/21 05:11 B-TYPE NATRIURETIC PEPTIDE,BNP [CHEM] AM 09/19/21 05:15 BASIC METABOLIC PANEL,BMP [CHEM] AM 09/19/21 06:00 INR,PT,PROTHROMBIN TIME [COAG] DAILY 09/19/21 09:00 Furosemide [Lasix] 20 mg PO DAILY 09/20/21 05:11 B-TYPE NATRIURETIC PEPTIDE,BNP [CHEM] AM 09/20/21 06:00 INR,PT,PROTHROMBIN TIME [COAG] DAILY 09/21/21 06:00 INR,PT,PROTHROMBIN TIME [COAG] DAILY 09/22/21 06:00 INR,PT,PROTHROMBIN TIME [COAG] DAILY 09/23/21 06:00 INR,PT,PROTHROMBIN TIME [COAG] DAILY 09/24/21 06:00 INR,PT,PROTHROMBIN TIME [COAG] DAILY 09/25/21 06:00 INR,PT,PROTHROMBIN TIME [COAG] DAILY 09/26/21 06:00 INR,PT,PROTHROMBIN TIME [COAG] DAILY 09/27/21 06:00 INR,PT,PROTHROMBIN TIME [COAG] DAILY 09/28/21 06:00 INR,PT,PROTHROMBIN TIME [COAG] DAILY 09/29/21 06:00 INR,PT,PROTHROMBIN TIME [COAG] DAILY 09/30/21 06:00 INR,PT,PROTHROMBIN TIME [COAG] DAILY 10/01/21 06:00 INR,PT,PROTHROMBIN TIME [COAG] DAILY 10/02/21 06:00 INR,PT,PROTHROMBIN TIME [COAG] DAILY 10/03/21 06:00 INR,PT,PROTHROMBIN TIME [COAG] DAILY 10/04/21 06:00 INR,PT,PROTHROMBIN TIME [COAG] DAILY 10/05/21 06:00 INR,PT,PROTHROMBIN TIME [COAG] DAILY 10/06/21 06:00 INR,PT,PROTHROMBIN TIME [COAG] DAILY 10/07/21 06:00 INR,PT,PROTHROMBIN TIME [COAG] DAILY 10/08/21 06:00 INR,PT,PROTHROMBIN TIME [COAG] DAILY 10/09/21 06:00 INR,PT,PROTHROMBIN TIME [COAG] DAILY 10/10/21 06:00 INR,PT,PROTHROMBIN TIME [COAG] DAILY 10/11/21 06:00 INR,PT,PROTHROMBIN TIME [COAG] DAILY 10/12/21 06:00 INR,PT,PROTHROMBIN TIME [COAG] DAILY 10/13/21 06:00 INR,PT,PROTHROMBIN TIME [COAG] DAILY 10/14/21 06:00 INR,PT,PROTHROMBIN TIME [COAG] DAILY 10/15/21 06:00 INR,PT,PROTHROMBIN TIME [COAG] DAILY 10/16/21 06:00 INR,PT,PROTHROMBIN TIME [COAG] DAILY - Plan Plan:: 86-year-old lady presented with back pain. Recent fall and she says she hit the head but did not pass out. She was noted to have tachycardia. Back pain Likely muscular skeletal No lower extremity neurological deficit Treat conservatively cont lidoderm patch added ultram prn History of fall the patient has been on chronic anticoagulation CT head showed no acute bleed likely old ischemic stroke we'll continue secondary prevention with anticoagulation for atrial fibrillation Consulted physical and occupational therapy atrial fibrillation with rapid ventricular rate The patient was given Cardizem IV Heart rate improved continue Coreg PO monitor on telemetry Acute systolic congestive heart failure Pleural effusion, lower extremity edema echocardiogram: per tech: ef 40-50 % Control heart rate Continue Coreg improved - cut lasix to daily dose cont LE shira stocking Follow electrolytes and renal function hypokalemia will replace today recheck in AM Acute renal failure with fluid overload improving Monitor with diuretics Anticoagulation for atrial fibrillation Continue Coumadin Target INR between 2 and 3 h/o dementia now alert, oriented CODE STATUS was discussed with the patient Wish to be DNR called son Mery [phone]
[2021-09-18] MEDS: Temazepam 15 MG Cap PO PRN (20:53)
[2021-09-18] MEDS: Remove Patch **LIDOCAINE PATCH TRDERM SCH (21:12)
[2021-09-19] MEDS: Omeprazole 20 MG Cap.CR PO SCH ×2 (05:33→16:21)
[2021-09-19 06:59] LABS: ANION GAP 14.4 mEq/L (7-13)
[2021-09-19] MEDS: Carvedilol 25 MG Tab PO SCH ×2 (08:47→17:11)
[2021-09-19] MEDS: Potassium Chloride 10 MEQ Tab.ER PO SCH (08:47)
[2021-09-19] MEDS: Furosemide 20 MG Tab PO SCH (08:48)
[2021-09-19] MEDS: Lidocaine 5% 700 MG Patch TOP SCH (08:48)
--- NOTE | 2021-09-19 12:05 | PCM.PN ---
- General Info Date of Service: 09/19/21 Admission Dx/Problem (Free Text): Admission Diagnosis/Problem Admission Diagnosis/Problem Heart failure Subjective Update: feeling well, still has diaz cath the back pain is much improved, moderate, able to get out of bed, no associated LE numbness, walking with walker sitting up in chair no sob no cp Functional Status: Reports: Pain Controlled, Tolerating Diet, Ambulating - Review of Systems General: Reports: Weakness Pulmonary: Denies: Shortness of Breath Cardiovascular: Reports: Edema (improved). Denies: Chest Pain Genitourinary: Denies: Hematuria Neurological: Denies: Confusion - Patient Data Vitals - Most Recent: Last Vital Signs Temp 97.0 F 09/19/21 07:48 Pulse 71 09/19/21 08:47 Resp 20 09/19/21 07:48 BP 101/71 09/19/21 08:47 Pulse Ox 95 09/19/21 07:48 Weight - Most Recent: 139 lb 9.6 oz I&O - Last 24 Hours: Intake & Output 09/18/21 09/19/21 09/19/21 22:59 06:59 14:59 Intake Total 650 450 Output Total 700 600 Balance -50 -150 Lab Results Last 24 Hours: Laboratory Results - last 24 hr 09/19/21 09/19/21 Range/Units 06:10 06:10 PT 24.6 H (9.0-12.0) SEC INR 2.5 H (0.9-1.2) Sodium 139 (136-145) mmol/L Potassium 4.4 (3.5-5.1) mmol/L Chloride 103 (98-107) mmol/L Carbon Dioxide 26 (21-32) mmol/L Anion Gap 14.4 H (7-13) mEq/L BUN 30 H (7-18) mg/dL Creatinine 1.35 H (0.55-1.02) mg/dL Est Cr Clr Drug Dosing 23.83 mL/min Estimated GFR (MDRD) 37 Glucose 87 (70-99) mg/dL Calcium 8.5 (8.5-10.1) mg/dL B-Natriuretic Peptide 607 H (0-100) pg/ml Christiano Results Last 24 Hours: Microbiology 09/16/21 15:14 Aerobic Blood Culture - Preliminary Blood - Arm, Left NO GROWTH AFTER 2 DAYS Anaerobic Blood Culture - Preliminary NO GROWTH AFTER 2 DAYS 09/16/21 15:06 Aerobic Blood Culture - Preliminary Blood - Arm, Right NO GROWTH AFTER 2 DAYS Anaerobic Blood Culture - Preliminary NO GROWTH AFTER 2 DAYS Med Orders - Current: Current Medications Acetaminophen (Acetaminophen 325 Mg Tab) 650 mg PO Q4H PRN PRN Reason: Pain (Mild 1-3)/fever Last Admin: 09/18/21 20:53 Dose: 650 mg Documented by: Albuterol/Ipratropium (Albuterol/Ipratropium 3.0-0.5 Mg/3 Ml Neb Soln) 3 ml NEB Q6H PRN PRN Reason: Dyspnea Carvedilol (Carvedilol 25 Mg Tab) 25 mg PO BIDMEALS [facility] Last Admin: 09/19/21 08:47 Dose: 25 mg Documented by: Docusate Sodium (Docusate Sodium 100 Mg Cap) 100 mg PO BID PRN PRN Reason: Constipation Furosemide (Furosemide 20 Mg Tab) 20 mg PO DAILY [facility] Last Admin: 09/19/21 08:48 Dose: 20 mg Documented by: Lidocaine (Lidocaine 5% 700 Mg Patch) 700 mg TOP DAILY [facility] Last Admin: 09/19/21 08:48 Dose: 700 mg Documented by: Miscellaneous Information (Remove Patch Lidocaine Patch) 1 ea TRDERM BEDTIME [facility] Last Admin: 09/18/21 21:12 Dose: 1 ea Documented by: Omeprazole (Omeprazole 20 Mg Cap.Cr) 20 mg PO BIDAC [facility] Last Admin: 09/19/21 05:33 Dose: 20 mg Documented by: Ondansetron HCl (Ondansetron 4 Mg/2 Ml Sdv) 4 mg IVPUSH Q6H PRN PRN Reason: Nausea/Vomiting Potassium Chloride (Potassium Chloride 10 Meq Tab.Er) 10 meq PO DAILY [facility] Last Admin: 09/19/21 08:47 Dose: 10 meq Documented by: Sodium Chloride (Sodium Chloride 0.9% 10 Ml Syringe) 10 ml FLUSH ASDIRECTED PRN PRN Reason: Keep Vein Open Last Admin: 09/17/21 20:42 Dose: 10 ml Documented by: Temazepam (Temazepam 15 Mg Cap) 15 mg PO BEDTIME PRN PRN Reason: Sleep Last Admin: 09/18/21 20:53 Dose: 15 mg Documented by: Tramadol HCl (Tramadol 50 Mg Tab) 50 mg PO Q6H PRN PRN Reason: Pain Last Admin: 09/18/21 18:08 Dose: 50 mg Documented by: Warfarin Sodium (Pharmacy To Dose - Warfarin) 1 dose .XX ASDIRECTED [facility] Warfarin Sodium (Warfarin 1 Mg Tab) 1 mg PO ONETIME ONE Stop: 09/19/21 14:01 Discontinued Medications Carvedilol (Carvedilol 25 Mg Tab) 25 mg PO BID [facility] Last Admin: 09/17/21 08:28 Dose: 25 mg Documented by: Diltiazem HCl (Diltiazem 25 Mg/5 Ml Sdv) 20 mg IVPUSH ONETIME ONE Stop: 09/16/21 15:03 Last Admin: 09/16/21 15:16 Dose: 10 mg Documented by: Furosemide (Furosemide 40 Mg/4 Ml Vial) 80 mg IVPUSH ONETIME ONE Stop: 09/16/21 15:56 Last Admin: 09/16/21 16:22 Dose: 80 mg Documented by: Furosemide (Furosemide 20 Mg/2 Ml Vial) 20 mg IVPUSH Q8H [facility] Last Admin: 09/17/21 08:28 Dose: 20 mg Documented by: Furosemide (Furosemide 20 Mg/2 Ml Vial) 20 mg IVPUSH BID [facility] Last Admin: 09/18/21 09:59 Dose: 20 mg Documented by: Sodium Chloride (Normal Saline) 500 mls @ 250 mls/hr IV .BOLUS [facility] Last Admin: 09/16/21 16:23 Dose: 250 mls/hr Documented by: Omeprazole (Omeprazole 20 Mg Cap.Cr) 20 mg PO BID [facility] Last Admin: 09/17/21 08:28 Dose: 20 mg Documented by: Potassium Chloride (Potassium Chloride 10 Meq Tab.Er) 40 meq PO ONETIME ONE Stop: 09/18/21 14:15 Last Admin: 09/18/21 16:40 Dose: Not Given Documented by: Sodium Chloride (Sodium Chloride 0.9% 10 Ml Syringe) 10 ml FLUSH ASDIRECTED PRN PRN Reason: Keep Vein Open Last Admin: 09/16/21 16:23 Dose: 10 ml Documented by: Warfarin Sodium (Warfarin 1 Mg Tab) 1 mg PO SuTuThFr@1400 [facility] Last Admin: 09/17/21 01:50 Dose: 1 mg Documented by: Warfarin Sodium (Warfarin 2 Mg Tab) 2 mg PO MoWeSa@1400 [facility] Warfarin Sodium (Warfarin 1 Mg Tab) 1 mg PO ONETIME ONE Stop: 09/17/21 18:01 Last Admin: 09/17/21 17:57 Dose: 1 mg Documented by: Warfarin Sodium (Warfarin 2 Mg Tab) 2 mg PO ONETIME ONE Stop: 09/18/21 14:01 Last Admin: 09/18/21 16:40 Dose: Not Given Documented by: Warfarin Sodium (Warfarin 1 Mg Tab) 1 mg PO ONETIME ONE Stop: 09/19/21 07:31 - Exam Quality Assessment: No: Supplemental Oxygen General: Alert, Oriented Neck: Supple Lungs: Normal Respiratory Effort, Decreased Breath Sounds, Rhonchi. No: Wheezing Cardiovascular: Irregular Rhythm, Tachycardia (mild) Extremities: Pedal Edema (trace ) Skin: Warm Neurological: No New Focal Deficit Psy/Mental Status: Alert, Normal Affect, Normal Mood - Patient Data Lab Results Last 24 hrs: Laboratory Results - last 24 hr 09/19/21 09/19/21 Range/Units 06:10 06:10 PT 24.6 H (9.0-12.0) SEC INR 2.5 H (0.9-1.2) Sodium 139 (136-145) mmol/L Potassium 4.4 (3.5-5.1) mmol/L Chloride 103 (98-107) mmol/L Carbon Dioxide 26 (21-32) mmol/L Anion Gap 14.4 H (7-13) mEq/L BUN 30 H (7-18) mg/dL Creatinine 1.35 H (0.55-1.02) mg/dL Est Cr Clr Drug Dosing 23.83 mL/min Estimated GFR (MDRD) 37 Glucose 87 (70-99) mg/dL Calcium 8.5 (8.5-10.1) mg/dL B-Natriuretic Peptide 607 H (0-100) pg/ml Result Diagrams: 09/18/21 05:20 09/19/21 06:10 Christiano Results Last 24 hrs: Microbiology 09/16/21 15:14 Aerobic Blood Culture - Preliminary Blood - Arm, Left NO GROWTH AFTER 2 DAYS Anaerobic Blood Culture - Preliminary NO GROWTH AFTER 2 DAYS 09/16/21 15:06 Aerobic Blood Culture - Preliminary Blood - Arm, Right NO GROWTH AFTER 2 DAYS Anaerobic Blood Culture - Preliminary NO GROWTH AFTER 2 DAYS Sepsis Event Note - Evaluation Sepsis Screening Result: No Definite Risk - Focused Exam Vital Signs: Vital Signs Temp Pulse Pulse Resp BP BP Pulse Ox 09/19/21 08:47 71 101/71 09/19/21 07:48 97.0 F 101 H 20 101/71 95 09/19/21 05:40 98.1 F 101 H 14 106/79 96 09/19/21 00:19 69 15 - Problem List & Annotations (1) Atrial fibrillation with rapid ventricular response SNOMED Code(s): 387373602083663 Code(s): I48.91 - UNSPECIFIED ATRIAL FIBRILLATION Status: Acute Current Visit: No (2) Congestive heart failure SNOMED Code(s): 36864523 Code(s): I50.9 - HEART FAILURE, UNSPECIFIED Status: Acute Current Visit: No Qualifiers: Heart failure type: unspecified Heart failure chronicity: acute Qualified Code(s): I50.9 - Heart failure, unspecified - Problem List Review Problem List Initiated/Reviewed/Updated: Yes - My Orders Last 24 Hours: My Active Orders 09/19/21 09:00 Furosemide [Lasix] 20 mg PO DAILY 09/19/21 11:49 Urinary Catheter Removal [RC] PER UNIT ROUTINE 09/19/21 14:00 Diltiazem IR [Cardizem] 30 mg PO Q8HR Warfarin [Coumadin] 1 mg PO ONETIME ONE 09/20/21 05:11 B-TYPE NATRIURETIC PEPTIDE,BNP [CHEM] AM 09/20/21 06:00 INR,PT,PROTHROMBIN TIME [COAG] DAILY 09/21/21 06:00 INR,PT,PROTHROMBIN TIME [COAG] DAILY 09/22/21 06:00 INR,PT,PROTHROMBIN TIME [COAG] DAILY 09/23/21 06:00 INR,PT,PROTHROMBIN TIME [COAG] DAILY 09/24/21 06:00 INR,PT,PROTHROMBIN TIME [COAG] DAILY 09/25/21 06:00 INR,PT,PROTHROMBIN TIME [COAG] DAILY 09/26/21 06:00 INR,PT,PROTHROMBIN TIME [COAG] DAILY 09/27/21 06:00 INR,PT,PROTHROMBIN TIME [COAG] DAILY 09/28/21 06:00 INR,PT,PROTHROMBIN TIME [COAG] DAILY 09/29/21 06:00 INR,PT,PROTHROMBIN TIME [COAG] DAILY 09/30/21 06:00 INR,PT,PROTHROMBIN TIME [COAG] DAILY 10/01/21 06:00 INR,PT,PROTHROMBIN TIME [COAG] DAILY 10/02/21 06:00 INR,PT,PROTHROMBIN TIME [COAG] DAILY 10/03/21 06:00 INR,PT,PROTHROMBIN TIME [COAG] DAILY 10/04/21 06:00 INR,PT,PROTHROMBIN TIME [COAG] DAILY 10/05/21 06:00 INR,PT,PROTHROMBIN TIME [COAG] DAILY 10/06/21 06:00 INR,PT,PROTHROMBIN TIME [COAG] DAILY 10/07/21 06:00 INR,PT,PROTHROMBIN TIME [COAG] DAILY 10/08/21 06:00 INR,PT,PROTHROMBIN TIME [COAG] DAILY 10/09/21 06:00 INR,PT,PROTHROMBIN TIME [COAG] DAILY 10/10/21 06:00 INR,PT,PROTHROMBIN TIME [COAG] DAILY 10/11/21 06:00 INR,PT,PROTHROMBIN TIME [COAG] DAILY 10/12/21 06:00 INR,PT,PROTHROMBIN TIME [COAG] DAILY 10/13/21 06:00 INR,PT,PROTHROMBIN TIME [COAG] DAILY 10/14/21 06:00 INR,PT,PROTHROMBIN TIME [COAG] DAILY 10/15/21 06:00 INR,PT,PROTHROMBIN TIME [COAG] DAILY 10/16/21 06:00 INR,PT,PROTHROMBIN TIME [COAG] DAILY - Plan Plan:: 86-year-old lady presented with back pain. Recent fall and she says she hit the head but did not pass out. She was noted to have tachycardia. Back pain Likely muscular skeletal No lower extremity neurological deficit Treat conservatively cont lidoderm patch added ultram prn History of fall the patient has been on chronic anticoagulation CT head showed no acute bleed likely old ischemic stroke we'll continue secondary prevention with anticoagulation for atrial fibrillation Consulted physical and occupational therapy atrial fibrillation with rapid ventricular rate The patient was given Cardizem IV Heart rate improved but still 90-110s continue Coreg PO add cardizem - monitor BP monitor on telemetry Acute systolic congestive heart failure Pleural effusion, lower extremity edema echocardiogram: per tech: ef 40-50 % Control heart rate Continue Coreg improved - cut lasix to daily dose cont LE shira stocking Follow electrolytes and renal function hypokalemia resolved cont supplement Acute renal failure with fluid overload improved follow periodically Anticoagulation for atrial fibrillation Continue Coumadin Target INR between 2 and 3 h/o dementia now alert, oriented CODE STATUS was discussed with the patient Wish to be DNR called son Mery [phone]
[2021-09-19] MEDS: Diltiazem IR 30 MG Tab PO SCH ×2 (14:52→21:19)
[2021-09-19] MEDS: Acetaminophen 325 MG Tab PO PRN (20:12)
[2021-09-19] MEDS: Temazepam 15 MG Cap PO PRN (20:13)
[2021-09-19] MEDS: Remove Patch **LIDOCAINE PATCH TRDERM SCH (20:13)
[2021-09-19] MEDS: traMADol 50 MG Tab PO PRN (20:13)
[2021-09-19] MEDS ORDERED: diphenhydrAMINE 25 MG Tab PO ONE (20:50)
[2021-09-20] MEDS: Diltiazem IR 30 MG Tab PO SCH ×3 (06:25→23:46)
[2021-09-20] MEDS: Omeprazole 20 MG Cap.CR PO SCH ×2 (06:26→17:42)
[2021-09-20] MEDS: Carvedilol 25 MG Tab PO SCH ×2 (10:10→18:15)
[2021-09-20] MEDS: Potassium Chloride 10 MEQ Tab.ER PO SCH (10:11)
[2021-09-20] MEDS: Furosemide 20 MG Tab PO SCH (10:12)
[2021-09-20] MEDS: Lidocaine 5% 700 MG Patch TOP SCH (10:12)
--- NOTE | 2021-09-20 11:40 | PCM.PN ---
- General Info Date of Service: 09/20/21 Admission Dx/Problem (Free Text): Admission Diagnosis/Problem Admission Diagnosis/Problem Heart failure Subjective Update: feeling well the back pain is much improve but still present, rated as moderate, able to get out of bed, no associated LE numbness, walking with walker sitting up in chair no sob no cp - Review of Systems General: Reports: Weakness. Denies: Fever Pulmonary: Denies: Shortness of Breath Cardiovascular: Reports: Edema (trace edema). Denies: Chest Pain Gastrointestinal: Denies: Abdominal Pain Genitourinary: Denies: Dysuria Neurological: Denies: Confusion - Patient Data Vitals - Most Recent: Last Vital Signs Temp 95.0 F L 09/20/21 07:54 Pulse 89 09/20/21 10:10 Resp 18 09/20/21 07:54 BP 90/62 09/20/21 10:10 Pulse Ox 94 L 09/20/21 07:54 Weight - Most Recent: 141 lb 4.8 oz I&O - Last 24 Hours: Intake & Output 09/19/21 09/20/21 09/20/21 22:59 06:59 14:59 Intake Total 250 520 Output Total 250 500 Balance 0 -500 520 Lab Results Last 24 Hours: Laboratory Results - last 24 hr 09/20/21 09/20/21 Range/Units 05:45 07:36 PT 23.4 H (9.0-12.0) SEC INR 2.4 H (0.9-1.2) B-Natriuretic Peptide 436 H (0-100) pg/ml Christiano Results Last 24 Hours: Microbiology 09/16/21 15:14 Aerobic Blood Culture - Preliminary Blood - Arm, Left NO GROWTH AFTER 3 DAYS Anaerobic Blood Culture - Preliminary NO GROWTH AFTER 3 DAYS 09/16/21 15:06 Aerobic Blood Culture - Preliminary Blood - Arm, Right NO GROWTH AFTER 3 DAYS Anaerobic Blood Culture - Preliminary NO GROWTH AFTER 3 DAYS Med Orders - Current: Current Medications Acetaminophen (Acetaminophen 325 Mg Tab) 650 mg PO Q4H PRN PRN Reason: Pain (Mild 1-3)/fever Last Admin: 09/19/21 20:12 Dose: 650 mg Documented by: Albuterol/Ipratropium (Albuterol/Ipratropium 3.0-0.5 Mg/3 Ml Neb Soln) 3 ml NEB Q6H PRN PRN Reason: Dyspnea Carvedilol (Carvedilol 25 Mg Tab) 25 mg PO BIDMEALS [facility] Last Admin: 09/20/21 10:10 Dose: 25 mg Documented by: Diltiazem HCl (Diltiazem Ir 30 Mg Tab) 30 mg PO Q8HR [facility] Last Admin: 09/20/21 06:25 Dose: 30 mg Documented by: Docusate Sodium (Docusate Sodium 100 Mg Cap) 100 mg PO BID PRN PRN Reason: Constipation Furosemide (Furosemide 20 Mg Tab) 20 mg PO DAILY [facility] Last Admin: 09/20/21 10:12 Dose: 20 mg Documented by: Lidocaine (Lidocaine 5% 700 Mg Patch) 700 mg TOP DAILY [facility] Last Admin: 09/20/21 10:12 Dose: 700 mg Documented by: Miscellaneous Information (Remove Patch Lidocaine Patch) 1 ea TRDERM BEDTIME [facility] Last Admin: 09/19/21 20:13 Dose: 1 ea Documented by: Omeprazole (Omeprazole 20 Mg Cap.Cr) 20 mg PO BIDAC [facility] Last Admin: 09/20/21 06:26 Dose: 20 mg Documented by: Ondansetron HCl (Ondansetron 4 Mg/2 Ml Sdv) 4 mg IVPUSH Q6H PRN PRN Reason: Nausea/Vomiting Potassium Chloride (Potassium Chloride 10 Meq Tab.Er) 10 meq PO DAILY [facility] Last Admin: 09/20/21 10:11 Dose: 10 meq Documented by: Sodium Chloride (Sodium Chloride 0.9% 10 Ml Syringe) 10 ml FLUSH ASDIRECTED PRN PRN Reason: Keep Vein Open Last Admin: 09/17/21 20:42 Dose: 10 ml Documented by: Temazepam (Temazepam 15 Mg Cap) 15 mg PO BEDTIME PRN PRN Reason: Sleep Last Admin: 09/19/21 20:13 Dose: 15 mg Documented by: Tramadol HCl (Tramadol 50 Mg Tab) 50 mg PO Q6H PRN PRN Reason: Pain Last Admin: 09/19/21 20:13 Dose: 50 mg Documented by: Warfarin Sodium (Pharmacy To Dose - Warfarin) 1 dose .XX ASDIRECTED [facility] Warfarin Sodium (Warfarin 2 Mg Tab) 2 mg PO ONETIME ONE Stop: 09/20/21 14:01 Discontinued Medications Carvedilol (Carvedilol 25 Mg Tab) 25 mg PO BID [facility] Last Admin: 09/17/21 08:28 Dose: 25 mg Documented by: Diltiazem HCl (Diltiazem 25 Mg/5 Ml Sdv) 20 mg IVPUSH ONETIME ONE Stop: 09/16/21 15:03 Last Admin: 09/16/21 15:16 Dose: 10 mg Documented by: Diphenhydramine HCl (Diphenhydramine 25 Mg Tab) 25 mg PO ONETIME ONE Stop: 09/19/21 20:51 Last Admin: 09/19/21 21:19 Dose: 25 mg Documented by: Furosemide (Furosemide 40 Mg/4 Ml Vial) 80 mg IVPUSH ONETIME ONE Stop: 09/16/21 15:56 Last Admin: 09/16/21 16:22 Dose: 80 mg Documented by: Furosemide (Furosemide 20 Mg/2 Ml Vial) 20 mg IVPUSH Q8H [facility] Last Admin: 09/17/21 08:28 Dose: 20 mg Documented by: Furosemide (Furosemide 20 Mg/2 Ml Vial) 20 mg IVPUSH BID [facility] Last Admin: 09/18/21 09:59 Dose: 20 mg Documented by: Sodium Chloride (Normal Saline) 500 mls @ 250 mls/hr IV .BOLUS [facility] Last Admin: 09/16/21 16:23 Dose: 250 mls/hr Documented by: Omeprazole (Omeprazole 20 Mg Cap.Cr) 20 mg PO BID [facility] Last Admin: 09/17/21 08:28 Dose: 20 mg Documented by: Potassium Chloride (Potassium Chloride 10 Meq Tab.Er) 40 meq PO ONETIME ONE Stop: 09/18/21 14:15 Last Admin: 09/18/21 16:40 Dose: Not Given Documented by: Sodium Chloride (Sodium Chloride 0.9% 10 Ml Syringe) 10 ml FLUSH ASDIRECTED PRN PRN Reason: Keep Vein Open Last Admin: 09/16/21 16:23 Dose: 10 ml Documented by: Warfarin Sodium (Warfarin 1 Mg Tab) 1 mg PO SuTuThFr@1400 [facility] Last Admin: 09/17/21 01:50 Dose: 1 mg Documented by: Warfarin Sodium (Warfarin 2 Mg Tab) 2 mg PO MoWeSa@1400 [facility] Warfarin Sodium (Warfarin 1 Mg Tab) 1 mg PO ONETIME ONE Stop: 09/17/21 18:01 Last Admin: 09/17/21 17:57 Dose: 1 mg Documented by: Warfarin Sodium (Warfarin 2 Mg Tab) 2 mg PO ONETIME ONE Stop: 09/18/21 14:01 Last Admin: 09/18/21 16:40 Dose: Not Given Documented by: Warfarin Sodium (Warfarin 1 Mg Tab) 1 mg PO ONETIME ONE Stop: 09/19/21 07:31 Warfarin Sodium (Warfarin 1 Mg Tab) 1 mg PO ONETIME ONE Stop: 09/19/21 14:01 Last Admin: 09/19/21 14:52 Dose: 1 mg Documented by: - Exam General: Alert, Oriented Neck: Supple Lungs: Normal Respiratory Effort, Decreased Breath Sounds. No: Wheezing Cardiovascular: Irregular Rhythm GI/Abdominal Exam: Normal Bowel Sounds, Soft, Non-Tender Extremities: Pedal Edema (trace b/l ) Skin: Warm, Dry Psy/Mental Status: Alert, Normal Affect, Normal Mood - Patient Data Lab Results Last 24 hrs: Laboratory Results - last 24 hr 09/20/21 09/20/21 Range/Units 05:45 07:36 PT 23.4 H (9.0-12.0) SEC INR 2.4 H (0.9-1.2) B-Natriuretic Peptide 436 H (0-100) pg/ml Result Diagrams: 09/18/21 05:20 09/19/21 06:10 Christiano Results Last 24 hrs: Microbiology 09/16/21 15:14 Aerobic Blood Culture - Preliminary Blood - Arm, Left NO GROWTH AFTER 3 DAYS Anaerobic Blood Culture - Preliminary NO GROWTH AFTER 3 DAYS 09/16/21 15:06 Aerobic Blood Culture - Preliminary Blood - Arm, Right NO GROWTH AFTER 3 DAYS Anaerobic Blood Culture - Preliminary NO GROWTH AFTER 3 DAYS Sepsis Event Note - Evaluation Sepsis Screening Result: No Definite Risk - Focused Exam Vital Signs: Vital Signs Temp Pulse Pulse Resp BP BP Pulse Ox 09/20/21 10:10 89 90/62 09/20/21 07:54 95.0 F L 89 18 90/62 94 L 09/20/21 04:00 98 F 93 18 121/85 97 - Problem List & Annotations (1) Atrial fibrillation with rapid ventricular response SNOMED Code(s): 107015811031879 Code(s): I48.91 - UNSPECIFIED ATRIAL FIBRILLATION Status: Acute Current Visit: No (2) Congestive heart failure SNOMED Code(s): 54880255 Code(s): I50.9 - HEART FAILURE, UNSPECIFIED Status: Acute Current Visit: No Qualifiers: Heart failure type: unspecified Heart failure chronicity: acute Qualified Code(s): I50.9 - Heart failure, unspecified - Problem List Review Problem List Initiated/Reviewed/Updated: Yes - My Orders Last 24 Hours: My Active Orders 09/19/21 14:00 Diltiazem IR [Cardizem] 30 mg PO Q8HR 09/20/21 14:00 Warfarin [Coumadin] 2 mg PO ONETIME ONE 09/21/21 06:00 INR,PT,PROTHROMBIN TIME [COAG] DAILY 09/22/21 06:00 INR,PT,PROTHROMBIN TIME [COAG] DAILY 09/23/21 06:00 INR,PT,PROTHROMBIN TIME [COAG] DAILY 09/24/21 06:00 INR,PT,PROTHROMBIN TIME [COAG] DAILY 09/25/21 06:00 INR,PT,PROTHROMBIN TIME [COAG] DAILY 09/26/21 06:00 INR,PT,PROTHROMBIN TIME [COAG] DAILY 09/27/21 06:00 INR,PT,PROTHROMBIN TIME [COAG] DAILY 09/28/21 06:00 INR,PT,PROTHROMBIN TIME [COAG] DAILY 09/29/21 06:00 INR,PT,PROTHROMBIN TIME [COAG] DAILY 09/30/21 06:00 INR,PT,PROTHROMBIN TIME [COAG] DAILY 10/01/21 06:00 INR,PT,PROTHROMBIN TIME [COAG] DAILY 10/02/21 06:00 INR,PT,PROTHROMBIN TIME [COAG] DAILY 10/03/21 06:00 INR,PT,PROTHROMBIN TIME [COAG] DAILY 10/04/21 06:00 INR,PT,PROTHROMBIN TIME [COAG] DAILY 10/05/21 06:00 INR,PT,PROTHROMBIN TIME [COAG] DAILY 10/06/21 06:00 INR,PT,PROTHROMBIN TIME [COAG] DAILY 10/07/21 06:00 INR,PT,PROTHROMBIN TIME [COAG] DAILY 10/08/21 06:00 INR,PT,PROTHROMBIN TIME [COAG] DAILY 10/09/21 06:00 INR,PT,PROTHROMBIN TIME [COAG] DAILY 10/10/21 06:00 INR,PT,PROTHROMBIN TIME [COAG] DAILY 10/11/21 06:00 INR,PT,PROTHROMBIN TIME [COAG] DAILY 10/12/21 06:00 INR,PT,PROTHROMBIN TIME [COAG] DAILY 10/13/21 06:00 INR,PT,PROTHROMBIN TIME [COAG] DAILY 10/14/21 06:00 INR,PT,PROTHROMBIN TIME [COAG] DAILY 10/15/21 06:00 INR,PT,PROTHROMBIN TIME [COAG] DAILY 10/16/21 06:00 INR,PT,PROTHROMBIN TIME [COAG] DAILY - Plan Plan:: 86-year-old lady presented with back pain. Recent fall and she says she hit the head but did not pass out. She was noted to have tachycardia on admission Back pain Likely muscular skeletal No lower extremity neurological deficit Treat conservatively cont lidoderm patch cont ultram prn History of fall the patient has been on chronic anticoagulation CT head showed no acute bleed likely old ischemic stroke we'll continue secondary prevention with anticoagulation for atrial fibrillation cont to work with physical and occupational therapy atrial fibrillation with rapid ventricular rate The patient was given Cardizem IV Heart rate improved but still 90-110s continue Coreg PO added cardizem - monitor BP Acute systolic congestive heart failure Pleural effusion, lower extremity edema echocardiogram: per tech: ef 40-50 % Control heart rate Continue Coreg improved - cut lasix to daily dose cont LE shira stocking Follow electrolytes and renal function periodically hypokalemia resolved cont supplement Acute renal failure with fluid overload improved follow periodically Anticoagulation for atrial fibrillation Continue Coumadin Target INR between 2 and 3 h/o dementia now alert, oriented plan for discharge to assisted living with family and home care support
[2021-09-20] MEDS ORDERED: Warfarin 2 MG Tab PO ONE ×2 (14:00→18:15)
[2021-09-20] MEDS: traMADol 50 MG Tab PO PRN (17:42)
[2021-09-20] MEDS ORDERED: diphenhydrAMINE 25 MG Tab PO PRN (18:26)
[2021-09-20] MEDS: Acetaminophen 325 MG Tab PO PRN (18:40)
[2021-09-20] MEDS: Temazepam 15 MG Cap PO PRN (21:59)
[2021-09-20] MEDS: Remove Patch **LIDOCAINE PATCH TRDERM SCH (21:59)
[2021-09-20] MEDS: Sodium Chloride 0.9% 10 ML Syringe FLUSH PRN (22:02)
[2021-09-21] MEDS: Acetaminophen 325 MG Tab PO PRN ×2 (03:01→08:31)
[2021-09-21] MEDS: Omeprazole 20 MG Cap.CR PO SCH (06:14)
[2021-09-21] MEDS: Diltiazem IR 30 MG Tab PO SCH (06:14)
[2021-09-21] MEDS: traMADol 50 MG Tab PO PRN (06:40)
[2021-09-21 07:27] VITALS: BP 104/72; PULSE 82
[2021-09-21] MEDS: Furosemide 20 MG Tab PO SCH (08:32)
[2021-09-21] MEDS: Potassium Chloride 10 MEQ Tab.ER PO SCH (08:32)
[2021-09-21] MEDS: Carvedilol 25 MG Tab PO SCH (08:33)
[2021-09-21] MEDS: Lidocaine 5% 700 MG Patch TOP SCH (08:34)
--- NOTE | 2021-09-21 09:59 | PCM.DCSUM1 ---
Discharge Summary - Hospital Course Free Text/Narrative:: 86-year-old lady presented with back pain. Recent fall and she says she hit the head but did not pass out. She was noted to have tachycardia on admission Back pain Likely muscular skeletal No lower extremity neurological deficit Treat conservatively cont lidoderm patch cont ultram prn History of fall the patient has been on chronic anticoagulation CT head showed no acute bleed likely old ischemic stroke we'll continue secondary prevention with anticoagulation for atrial fibrillation cont to work with physical and occupational therapy through home care she would benefit from custodial to follow pain control, fluid status pt for strengthenig, help with back pain ot for ADLs atrial fibrillation with rapid ventricular rate The patient was given Cardizem IV Heart rate improved continue Coreg PO added cardizem Acute systolic congestive heart failure Pleural effusion, lower extremity edema echocardiogram: per tech: ef 40-50 % Control heart rate Continue Coreg improved with increased lasix - cut lasix to home dose cont LE shira stocking Follow electrolytes and renal function periodically hypokalemia resolved cont supplement Acute renal failure with fluid overload improved follow periodically Anticoagulation for atrial fibrillation Continue Coumadin Target INR between 2 and 3 h/o dementia now alert, oriented Diagnosis: Stroke: No - Discharge Data Discharge Date: 09/21/21 Discharge Disposition: Home, Self-Care 01 Condition: Good - Referral to Home Health Primary Care Physician: PCP None - Discharge Diagnosis/Problem(s) (1) Atrial fibrillation with rapid ventricular response SNOMED Code(s): 293508899094878 ICD Code: I48.91 - UNSPECIFIED ATRIAL FIBRILLATION Status: Acute Current Visit: No (2) Congestive heart failure SNOMED Code(s): 46163529 ICD Code: I50.9 - HEART FAILURE, UNSPECIFIED Status: Acute Current Visit: No Qualifiers: Heart failure type: unspecified Heart failure chronicity: acute Qualified Code(s): I50.9 - Heart failure, unspecified - Patient Summary/Data Consults: Consultations 09/16/21 18:48 OT Evaluation and Treatment [CONS] Routine PT Evaluation and Treatment [CONS] Routine - Patient Instructions Diet: Heart Healthy Diet Activity: As Tolerated - Discharge Plan *PRESCRIPTION DRUG MONITORING PROGRAM REVIEWED*: Not Applicable *COPY OF PRESCRIPTION DRUG MONITORING REPORT IN PATIENT JIN: Not Applicable Prescriptions/Med Rec: Diltiazem [Cardizem CD] 120 mg PO DAILY #30 cap.er Potassium Chloride [Klor-Con 10] 10 meq PO DAILY #30 tab.er Lidocaine 5% [Lidoderm 5%] 700 mg TOP DAILY #6 patch Home Medications: Home Meds LORazepam 0.5 mg PO BEDTIME PRN 08/18/15 [History] Omeprazole [Prilosec] 20 mg PO BID 08/18/15 [History] Potassium Chloride [Klor-Con 10] 10 meq PO DAILY 08/15/21 [History] carvediloL [Carvedilol] 25 mg PO BID 08/15/21 [History] Acetaminophen [Tylenol Extra Strength] 500 mg PO Q6H PRN tablet 08/21/21 [Rx] Albuterol/Ipratropium [DuoNeb 3.0-0.5 MG/3 ML] 3 ml NEB Q6H PRN 15 Days #60 neb 08/21/21 [Rx] Furosemide [Lasix] 20 mg PO DAILY tablet 08/21/21 [Rx] Psyllium Husk [Metamucil] 0.4 gm PO BID 09/16/21 [History] Vit C/E/Zn/Coppr/Lutein/Zeaxan [Preservision Areds 2 Softgel] 1 each PO BID 09/16/21 [History] Warfarin Sodium [Jantoven] 1 mg PO DAILY 09/16/21 [History] traMADol [Ultram] 50 mg PO DAILY PRN 09/16/21 [History] Diltiazem [Cardizem CD] 120 mg PO DAILY #30 cap.er 09/21/21 [Rx] Lidocaine 5% [Lidoderm 5%] 700 mg TOP DAILY #6 patch 09/21/21 [Rx] Potassium Chloride [Klor-Con 10] 10 meq PO DAILY #30 tab.er 09/21/21 [Rx] Oxygen Therapy Mode: Room Air Patient Handouts: Fall Prevention in the Home, Adult, [id number], Potassium Chloride Extended-Release Capsules, Heart Failure, Self-Care, [id number], Lidocaine dermal patch, Diltiazem Oral Tablets Referrals: Debo Orozco NP [Ordering Only Provider] - - Discharge Summary/Plan Comment DC Time >30 min.: Yes Total # of Minutes for Discharge Time: 35 min home care referral - Patient Data Vitals - Most Recent: Last Vital Signs Temp 96.9 F 09/21/21 07:26 Pulse 82 09/21/21 08:33 Resp 18 09/21/21 07:26 BP 104/72 09/21/21 08:33 Pulse Ox 92 L 09/21/21 07:26 Weight - Most Recent: 138 lb 1.6 oz I&O - Last 24 hours: Intake & Output 09/20/21 09/21/21 09/21/21 22:59 06:59 14:59 Intake Total 300 100 Output Total 175 800 Balance 125 -700 Lab Results - Last 24 hrs: Laboratory Results - last 24 hr 09/21/21 Range/Units 05:55 PT 20.3 H (9.0-12.0) SEC INR 2.0 H (0.9-1.2) PATRICK Results - Last 24 hrs: Microbiology 09/16/21 15:14 Aerobic Blood Culture - Preliminary Blood - Arm, Left NO GROWTH AFTER 4 DAYS Anaerobic Blood Culture - Preliminary NO GROWTH AFTER 4 DAYS 09/16/21 15:06 Aerobic Blood Culture - Preliminary Blood - Arm, Right NO GROWTH AFTER 4 DAYS Anaerobic Blood Culture - Preliminary NO GROWTH AFTER 4 DAYS Med Orders - Current: Current Medications Acetaminophen (Acetaminophen 325 Mg Tab) 650 mg PO Q4H PRN PRN Reason: Pain (Mild 1-3)/fever Last Admin: 09/21/21 08:31 Dose: 650 mg Documented by: Albuterol/Ipratropium (Albuterol/Ipratropium 3.0-0.5 Mg/3 Ml Neb Soln) 3 ml NEB Q6H PRN PRN Reason: Dyspnea Carvedilol (Carvedilol 25 Mg Tab) 25 mg PO BIDMEALS [facility] Last Admin: 09/21/21 08:33 Dose: 25 mg Documented by: Diltiazem HCl (Diltiazem Ir 30 Mg Tab) 30 mg PO Q8HR [facility] Last Admin: 09/21/21 06:14 Dose: 30 mg Documented by: Diphenhydramine HCl (Diphenhydramine 25 Mg Tab) 25 mg PO BEDTIME PRN PRN Reason: for sleep Docusate Sodium (Docusate Sodium 100 Mg Cap) 100 mg PO BID PRN PRN Reason: Constipation Furosemide (Furosemide 20 Mg Tab) 20 mg PO DAILY [facility] Last Admin: 09/21/21 08:32 Dose: 20 mg Documented by: Lidocaine (Lidocaine 5% 700 Mg Patch) 700 mg TOP DAILY [facility] Last Admin: 09/21/21 08:34 Dose: 700 mg Documented by: Miscellaneous Information (Remove Patch Lidocaine Patch) 1 ea TRDERM BEDTIME [facility] Last Admin: 09/20/21 21:59 Dose: 1 ea Documented by: Omeprazole (Omeprazole 20 Mg Cap.Cr) 20 mg PO BIDAC [facility] Last Admin: 09/21/21 06:14 Dose: 20 mg Documented by: Ondansetron HCl (Ondansetron 4 Mg/2 Ml Sdv) 4 mg IVPUSH Q6H PRN PRN Reason: Nausea/Vomiting Potassium Chloride (Potassium Chloride 10 Meq Tab.Er) 10 meq PO DAILY [facility] Last Admin: 09/21/21 08:32 Dose: 10 meq Documented by: Sodium Chloride (Sodium Chloride 0.9% 10 Ml Syringe) 10 ml FLUSH ASDIRECTED PRN PRN Reason: Keep Vein Open Last Admin: 09/20/21 22:02 Dose: 10 ml Documented by: Temazepam (Temazepam 15 Mg Cap) 15 mg PO BEDTIME PRN PRN Reason: Sleep Last Admin: 09/20/21 21:59 Dose: 15 mg Documented by: Tramadol HCl (Tramadol 50 Mg Tab) 50 mg PO Q6H PRN PRN Reason: Pain Last Admin: 09/21/21 06:40 Dose: 50 mg Documented by: Warfarin Sodium (Pharmacy To Dose - Warfarin) 1 dose .XX ASDIRECTED [facility] Discontinued Medications Carvedilol (Carvedilol 25 Mg Tab) 25 mg PO BID [facility] Last Admin: 09/17/21 08:28 Dose: 25 mg Documented by: Diltiazem HCl (Diltiazem 25 Mg/5 Ml Sdv) 20 mg IVPUSH ONETIME ONE Stop: 09/16/21 15:03 Last Admin: 09/16/21 15:16 Dose: 10 mg Documented by: Diphenhydramine HCl (Diphenhydramine 25 Mg Tab) 25 mg PO ONETIME ONE Stop: 09/19/21 20:51 Last Admin: 09/19/21 21:19 Dose: 25 mg Documented by: Furosemide (Furosemide 40 Mg/4 Ml Vial) 80 mg IVPUSH ONETIME ONE Stop: 09/16/21 15:56 Last Admin: 09/16/21 16:22 Dose: 80 mg Documented by: Furosemide (Furosemide 20 Mg/2 Ml Vial) 20 mg IVPUSH Q8H [facility] Last Admin: 09/17/21 08:28 Dose: 20 mg Documented by: Furosemide (Furosemide 20 Mg/2 Ml Vial) 20 mg IVPUSH BID [facility] Last Admin: 09/18/21 09:59 Dose: 20 mg Documented by: Sodium Chloride (Normal Saline) 500 mls @ 250 mls/hr IV .BOLUS [facility] Last Admin: 09/16/21 16:23 Dose: 250 mls/hr Documented by: Omeprazole (Omeprazole 20 Mg Cap.Cr) 20 mg PO BID [facility] Last Admin: 09/17/21 08:28 Dose: 20 mg Documented by: Potassium Chloride (Potassium Chloride 10 Meq Tab.Er) 40 meq PO ONETIME ONE Stop: 09/18/21 14:15 Last Admin: 09/18/21 16:40 Dose: Not Given Documented by: Sodium Chloride (Sodium Chloride 0.9% 10 Ml Syringe) 10 ml FLUSH ASDIRECTED PRN PRN Reason: Keep Vein Open Last Admin: 09/16/21 16:23 Dose: 10 ml Documented by: Warfarin Sodium (Warfarin 1 Mg Tab) 1 mg PO SuTuThFr@1400 [facility] Last Admin: 09/17/21 01:50 Dose: 1 mg Documented by: Warfarin Sodium (Warfarin 2 Mg Tab) 2 mg PO MoWeSa@1400 [facility] Warfarin Sodium (Warfarin 1 Mg Tab) 1 mg PO ONETIME ONE Stop: 09/17/21 18:01 Last Admin: 09/17/21 17:57 Dose: 1 mg Documented by: Warfarin Sodium (Warfarin 2 Mg Tab) 2 mg PO ONETIME ONE Stop: 09/18/21 14:01 Last Admin: 09/18/21 16:40 Dose: Not Given Documented by: Warfarin Sodium (Warfarin 1 Mg Tab) 1 mg PO ONETIME ONE Stop: 09/19/21 07:31 Warfarin Sodium (Warfarin 1 Mg Tab) 1 mg PO ONETIME ONE Stop: 09/19/21 14:01 Last Admin: 09/19/21 14:52 Dose: 1 mg Documented by: Warfarin Sodium (Warfarin 2 Mg Tab) 2 mg PO ONETIME ONE Stop: 09/20/21 14:01 Last Admin: 09/20/21 18:19 Dose: Not Given Documented by: Warfarin Sodium (Warfarin 2 Mg Tab) 2 mg PO ONETIME ONE Stop: 09/20/21 18:16 Last Admin: 09/20/21 18:29 Dose: 2 mg Documented by:
[2021-09-21] MEDS ORDERED: Warfarin 2 MG Tab PO ONE (14:00)
== END 2021-09-21 11:30 | disposition home or self-care (01) | DRG 292 ==
LOC: DL.ED 14:34 → DL.MS 17:27
PROVIDERS: ADMIT Internal Medicine; ATTEND Internal Medicine
DX: I50.9 Heart failure, unspecified (principal); I50.21 Acute systolic (congestive) heart failure; N17.9 Acute kidney failure, unspecified; I48.91 Unspecified atrial fibrillation; E87.6 Hypokalemia; K21.9 Gastro-esophageal reflux disease without esophagitis; F41.9 Anxiety disorder, unspecified; Z66 Do not resuscitate; F03.90 Unspecified dementia, unspecified severity, without behavioral disturbance, psychotic disturbance, mood disturbance, and anxiety; M54.9 Dorsalgia, unspecified; Z79.01 Long term (current) use of anticoagulants; Z88.1 Allergy status to other antibiotic agents; Z79.899 Other long term (current) drug therapy; Z86.718 Personal history of other venous thrombosis and embolism; Z28.82 Immunization not carried out because of caregiver refusal; Z97.3 Presence of spectacles and contact lenses; Z86.16 Personal history of COVID-19; Z91.81 History of falling
CPT/HCPCS: 36415; 70450; 71045; 74176; 80053; 83605; 83735; 83880; 84443; 84484; 85025; 85379; 85610; 86140; 87040 ×2; 93005; 96374; 96375; 99285; J1940; J3490; J7040; 80048; 81001; 84100; 93306; 97116-GP; 97161-GP; 97165-GO; 97530-GO; 97530-GP; 97535-GO; 99221; 99232; 99239; A9270-GY

== ENCOUNTER 2021-11-13 07:57 | Inpatient (IN) | payer MEDICARE, BC ==
[2021-11-13] MEDS: Sodium Chloride 0.9% 10 ML Syringe FLUSH PRN (08:27)
[2021-11-13] MEDS ORDERED: Furosemide 100 MG/10 ML SDV IVPUSH ONE (08:54)
[2021-11-13 09:12] LABS: ANION GAP 15.6 mEq/L (7-13); CHLORIDE,CL 103 mmol/L (98-107); SODIUM,NA 140 mmol/L (136-145)
[2021-11-13 09:17] LABS: PTT,PARTIAL THROMBOPLSTIN TIME 31.5 SEC (22.0-34.0)
[2021-11-13] MEDS ORDERED: LORazepam 0.5 MG Tab PO PRN (11:28)
[2021-11-13] MEDS ORDERED: Docusate Sodium 100 MG Cap PO PRN (11:35)
[2021-11-13] MEDS ORDERED: Ondansetron 4 MG/2 ML SDV IVPUSH PRN (11:35)
[2021-11-13] MEDS: Ciprofloxacin 500 MG Tab PO SCH ×2 (15:02→20:04)
[2021-11-13] MEDS: Dexamethasone 6 MG TABLET PO SCH (15:03)
[2021-11-13] MEDS: Warfarin 2 MG Tab PO SCH (15:03)
[2021-11-13] MEDS: Potassium Chloride 10 MEQ Tab.ER PO SCH (15:03)
[2021-11-13] MEDS: Furosemide 20 MG/2 ML VIAL IVPUSH SCH ×2 (15:38→23:41)
[2021-11-13] MEDS: LORazepam 0.5 MG Tab PO PRN ×2 (15:38→20:20)
[2021-11-13] MEDS: Omeprazole 20 MG Cap.CR PO SCH (15:38)
[2021-11-13] MEDS ORDERED: Digoxin 500 MCG/2 ML Amp IVPUSH ONE (18:25)
[2021-11-13] MEDS: Carvedilol 25 MG Tab PO SCH (20:03)
[2021-11-14] MEDS: traMADol 50 MG Tab PO PRN ×2 (01:58→09:50)
[2021-11-14] MEDS ORDERED: Digoxin 500 MCG/2 ML Amp IVPUSH ONE (02:00)
[2021-11-14] MEDS: Omeprazole 20 MG Cap.CR PO SCH ×2 (07:05→15:00)
[2021-11-14 07:14] LABS: ANION GAP 13.1 mEq/L (7-13)
[2021-11-14] MEDS: Polyethylene Glycol 3350 Powder 17 GM Packet PO SCH (08:22)
[2021-11-14] MEDS: Furosemide 20 MG/2 ML VIAL IVPUSH SCH ×3 (08:24→23:49)
[2021-11-14] MEDS: Dexamethasone 6 MG TABLET PO SCH (08:28)
[2021-11-14] MEDS: Ciprofloxacin 500 MG Tab PO SCH ×2 (08:29→21:09)
[2021-11-14] MEDS: Potassium Chloride 10 MEQ Tab.ER PO SCH (08:30)
[2021-11-14] MEDS: Carvedilol 25 MG Tab PO SCH ×2 (08:34→21:09)
[2021-11-14] MEDS: Digoxin 250 MCG Tab PO SCH (08:35)
[2021-11-14] MEDS ORDERED: Digoxin 250 MCG Tab PO SCH (09:00)
[2021-11-14] MEDS: LORazepam 0.5 MG Tab PO PRN ×2 (09:48→21:10)
[2021-11-14] MEDS ORDERED: Flumazenil 0.1 MG/ML 5 ML MDV IVPUSH PRN (17:36)
[2021-11-14] MEDS: LORazepam 2 MG/ML SDV ONE ×2 (18:04→19:01)
[2021-11-14] MEDS: LORazepam 2 MG/ML SDV IVPUSH PRN ×2 (18:04→23:49)
[2021-11-14] MEDS: Melatonin 3 MG Tab PO PRN (21:10)
[2021-11-15] MEDS ORDERED: LORazepam 2 MG/ML SDV IVPUSH ONE (02:45)
[2021-11-15] MEDS: LORazepam 0.5 MG Tab PO PRN ×2 (03:13→16:43)
[2021-11-15] MEDS: LORazepam 2 MG/ML SDV IVPUSH PRN ×3 (03:51→21:10)
[2021-11-15] MEDS: Omeprazole 20 MG Cap.CR PO SCH ×2 (05:27→17:04)
[2021-11-15] MEDS: Digoxin 250 MCG Tab PO SCH (10:33)
[2021-11-15] MEDS: Furosemide 20 MG/2 ML VIAL IVPUSH SCH ×2 (10:36→16:14)
[2021-11-15] MEDS: Potassium Chloride 10 MEQ Tab.ER PO SCH (10:37)
[2021-11-15] MEDS: Dexamethasone 6 MG TABLET PO SCH (10:41)
[2021-11-15] MEDS: Ciprofloxacin 500 MG Tab PO SCH (10:42)
[2021-11-15] MEDS: Carvedilol 25 MG Tab PO SCH (10:43)
[2021-11-15] MEDS: Polyethylene Glycol 3350 Powder 17 GM Packet PO SCH (10:44)
[2021-11-15 11:16] LABS: ANION GAP 13.2 mEq/L (7-13)
[2021-11-15] MEDS: Warfarin 2 MG Tab PO SCH (17:03)
[2021-11-16] MEDS: Carvedilol 25 MG Tab PO SCH ×3 (00:01→20:02)
[2021-11-16] MEDS: Ciprofloxacin 500 MG Tab PO SCH ×3 (00:01→20:02)
[2021-11-16] MEDS: Omeprazole 20 MG Cap.CR PO SCH ×2 (05:10→15:26)
[2021-11-16 06:52] LABS: ANION GAP 12.1 mEq/L (7-13)
[2021-11-16] MEDS: Digoxin 250 MCG Tab PO SCH (09:17)
[2021-11-16] MEDS: Potassium Chloride 10 MEQ Tab.ER PO SCH (09:17)
[2021-11-16] MEDS: Dexamethasone 6 MG TABLET PO SCH (09:17)
[2021-11-16] MEDS: LORazepam 2 MG/ML SDV IVPUSH PRN ×3 (09:18→19:35)
[2021-11-16] MEDS: Polyethylene Glycol 3350 Powder 17 GM Packet PO SCH (09:18)
[2021-11-16] MEDS: Furosemide 20 MG/2 ML VIAL IVPUSH SCH ×3 (09:23→15:27)
[2021-11-17] MEDS: Sodium Chloride 0.9% 10 ML Syringe FLUSH PRN ×2 (00:15→04:43)
[2021-11-17] MEDS: LORazepam 2 MG/ML SDV IVPUSH PRN ×2 (00:15→04:43)
[2021-11-17] MEDS: Furosemide 40 MG Tab PO SCH ×3 (06:28→09:57)
[2021-11-17] MEDS: Omeprazole 20 MG Cap.CR PO SCH ×2 (06:28→16:30)
[2021-11-17 07:33] LABS: ANION GAP 13.1 mEq/L (7-13)
[2021-11-17] MEDS: LORazepam 0.5 MG Tab PO SCH (08:12)
[2021-11-17] MEDS: Potassium Chloride 10 MEQ Tab.ER PO SCH ×2 (08:57→09:56)
[2021-11-17] MEDS: Digoxin 250 MCG Tab PO SCH ×2 (08:57→09:57)
[2021-11-17] MEDS: Polyethylene Glycol 3350 Powder 17 GM Packet PO SCH ×2 (08:57→09:57)
[2021-11-17] MEDS: Ciprofloxacin 500 MG Tab PO SCH (08:57)
[2021-11-17] MEDS: Dexamethasone 6 MG TABLET PO SCH (08:57)
[2021-11-17] MEDS: Carvedilol 25 MG Tab PO SCH ×3 (08:58→20:33)
[2021-11-17] MEDS ORDERED: OLANZapine 10 MG in Water For Injection, Sterile 2.1 ML IM ONE (09:15)
[2021-11-17] MEDS ORDERED: OLANZapine 10 MG Vial ONE (09:21)
[2021-11-17] MEDS ORDERED: Water For Injection, Sterile 20 ML ONE (09:21)
[2021-11-17] MEDS ORDERED: OLANZapine 10 MG Vial IM ONE (09:30)
[2021-11-17] MEDS ORDERED: OLANZapine 10 MG in Water For Injection, Sterile 2.1 ML IM PRN (14:27)
[2021-11-17] MEDS: Warfarin 2 MG Tab PO SCH (16:14)
[2021-11-17] MEDS: LORazepam 0.5 MG Tab PO PRN (18:15)
[2021-11-17] MEDS: Melatonin 3 MG Tab PO PRN (20:32)
[2021-11-17] MEDS: traMADol 50 MG Tab PO PRN (20:33)
[2021-11-18] MEDS: Omeprazole 20 MG Cap.CR PO SCH ×2 (06:38→15:52)
[2021-11-18 06:47] LABS: ANION GAP 11.9 mEq/L (7-13)
[2021-11-18] MEDS: Potassium Chloride 10 MEQ Tab.ER PO SCH (08:56)
[2021-11-18] MEDS: Polyethylene Glycol 3350 Powder 17 GM Packet PO SCH (08:56)
[2021-11-18] MEDS: LORazepam 0.5 MG Tab PO SCH (08:56)
[2021-11-18] MEDS: Furosemide 40 MG Tab PO SCH (08:57)
[2021-11-18] MEDS: Digoxin 250 MCG Tab PO SCH (08:59)
[2021-11-18] MEDS: Carvedilol 25 MG Tab PO SCH ×2 (08:59→20:16)
[2021-11-18] MEDS: cefTRIAXone 1 GM in Sodium Chloride 0.9% 50 ML IV SCH (09:08)
[2021-11-18] MEDS: LORazepam 2 MG/ML SDV IVPUSH PRN ×2 (15:50→23:23)
[2021-11-18] MEDS: Melatonin 3 MG Tab PO PRN (20:17)
[2021-11-18] MEDS: Sodium Chloride 0.9% 10 ML Syringe FLUSH PRN (23:22)
[2021-11-19] MEDS ORDERED: Water For Injection, Sterile 20 ML ONE ×2 (01:23→09:41)
[2021-11-19] MEDS: OLANZapine 10 MG Vial IM PRN ×2 (01:30→09:47)
[2021-11-19] MEDS: Sodium Chloride 0.9% 10 ML Syringe FLUSH PRN (04:58)
[2021-11-19] MEDS: LORazepam 2 MG/ML SDV IVPUSH PRN ×3 (04:58→22:44)
[2021-11-19] MEDS: Omeprazole 20 MG Cap.CR PO SCH ×2 (07:09→15:00)
[2021-11-19 07:37] LABS: ANION GAP 12.8 mEq/L (7-13)
[2021-11-19] MEDS: cefTRIAXone 1 GM in Sodium Chloride 0.9% 50 ML IV SCH (08:38)
[2021-11-19] MEDS: Furosemide 40 MG Tab PO SCH (11:21)
[2021-11-19] MEDS: Carvedilol 25 MG Tab PO SCH ×2 (11:23→20:06)
[2021-11-19] MEDS: Digoxin 250 MCG Tab PO SCH (11:25)
[2021-11-19] MEDS: Potassium Chloride 10 MEQ Tab.ER PO SCH (12:05)
[2021-11-19] MEDS: Polyethylene Glycol 3350 Powder 17 GM Packet PO SCH (12:05)
[2021-11-19] MEDS: LORazepam 0.5 MG Tab PO SCH (12:05)
[2021-11-19] MEDS: traMADol 50 MG Tab PO PRN (14:45)
[2021-11-19] MEDS ORDERED: Warfarin 2 MG Tab PO SCH (19:30)
[2021-11-19] MEDS ORDERED: [UNRECOGNIZED DRUG - OTHER] PO SCH (19:30)
[2021-11-20] MEDS: LORazepam 2 MG/ML SDV IVPUSH PRN ×3 (04:27→20:46)
[2021-11-20] MEDS: Omeprazole 20 MG Cap.CR PO SCH ×2 (05:15→16:42)
[2021-11-20 07:05] LABS: ANION GAP 16.1 mEq/L (7-13)
[2021-11-20] MEDS: Carvedilol 25 MG Tab PO SCH ×2 (08:56→20:22)
[2021-11-20] MEDS: Potassium Chloride 10 MEQ Tab.ER PO SCH (08:56)
[2021-11-20] MEDS: Polyethylene Glycol 3350 Powder 17 GM Packet PO SCH (08:56)
[2021-11-20] MEDS: Furosemide 40 MG Tab PO SCH (08:56)
[2021-11-20] MEDS: LORazepam 0.5 MG Tab PO SCH (08:57)
[2021-11-20] MEDS: Digoxin 250 MCG Tab PO SCH (08:58)
[2021-11-20] MEDS: QUEtiapine 25 MG Tab PO SCH ×2 (08:59→20:22)
[2021-11-20] MEDS: cefTRIAXone 1 GM in Sodium Chloride 0.9% 50 ML IV SCH (08:59)
[2021-11-20] MEDS: Sodium Chloride 0.9% 10 ML Syringe FLUSH PRN (09:07)
[2021-11-20] MEDS ORDERED: Non-Formulary Medication 1 Each IM PRN (09:26)
[2021-11-20] MEDS ORDERED: Warfarin 1 MG, Warfarin 2 MG PO ONE ×2 (14:00)
[2021-11-21] MEDS: LORazepam 2 MG/ML SDV IVPUSH PRN (01:13)
[2021-11-21] MEDS: Acetaminophen 325 MG Tab PO PRN (06:28)
[2021-11-21] MEDS: Omeprazole 20 MG Cap.CR PO SCH ×2 (06:28→17:52)
[2021-11-21] MEDS: Digoxin 250 MCG Tab PO SCH (08:35)
[2021-11-21] MEDS: Polyethylene Glycol 3350 Powder 17 GM Packet PO SCH (08:35)
[2021-11-21] MEDS: LORazepam 0.5 MG Tab PO SCH (08:37)
[2021-11-21] MEDS: QUEtiapine 25 MG Tab PO SCH ×2 (08:37→21:09)
[2021-11-21] MEDS: Furosemide 40 MG Tab PO SCH (08:38)
[2021-11-21] MEDS: Potassium Chloride 10 MEQ Tab.ER PO SCH (08:38)
[2021-11-21] MEDS: Sodium Chloride 0.9% 10 ML Syringe FLUSH PRN ×2 (08:38→18:13)
[2021-11-21] MEDS: Carvedilol 25 MG Tab PO SCH ×2 (11:24→21:09)
[2021-11-21] MEDS ORDERED: Warfarin 2 MG Tab PO ONE (14:00)
[2021-11-21] MEDS: Acetaminophen 325 MG Supp RECTAL PRN ×2 (16:18→22:17)
[2021-11-21] MEDS ORDERED: Sodium Chloride 0.9% 1,000 ML IV SCH (18:00)
[2021-11-22 06:50] LABS: ANION GAP 18.1 mEq/L (7-13)
[2021-11-22] MEDS: Omeprazole 20 MG Cap.CR PO SCH ×2 (08:03→16:58)
[2021-11-22] MEDS: Digoxin 250 MCG Tab PO SCH (10:43)
[2021-11-22] MEDS: Carvedilol 25 MG Tab PO SCH ×2 (10:43→20:07)
[2021-11-22] MEDS: Acetaminophen 325 MG Tab PO PRN (10:44)
[2021-11-22] MEDS: Furosemide 20 MG Tab PO SCH (10:44)
[2021-11-22] MEDS: Polyethylene Glycol 3350 Powder 17 GM Packet PO SCH (10:46)
[2021-11-22] MEDS: QUEtiapine 25 MG Tab PO SCH ×2 (10:55→20:06)
[2021-11-22] MEDS ORDERED: Warfarin 2 MG Tab PO ONE ×2 (11:15→14:00)
[2021-11-22] MEDS: Potassium Chloride 10 MEQ Tab.ER PO SCH (13:12)
[2021-11-23] MEDS: Acetaminophen 325 MG Tab PO PRN ×3 (04:57→21:24)
[2021-11-23] MEDS: Omeprazole 20 MG Cap.CR PO SCH ×3 (04:57→16:57)
[2021-11-23 06:26] LABS: ANION GAP 16.5 mEq/L (7-13)
[2021-11-23] MEDS ORDERED: Potassium Chloride 10% 20 MEQ/15 ML Soln 15 ML UD Cup PO SCH (08:00)
[2021-11-23] MEDS: Digoxin 250 MCG Tab PO SCH (10:23)
[2021-11-23] MEDS: Carvedilol 25 MG Tab PO SCH ×2 (10:24→20:03)
[2021-11-23] MEDS: Furosemide 20 MG Tab PO SCH (10:25)
[2021-11-23] MEDS: Polyethylene Glycol 3350 Powder 17 GM Packet PO SCH (10:25)
[2021-11-23] MEDS: QUEtiapine 25 MG Tab PO SCH ×2 (11:23→20:03)
[2021-11-23] MEDS ORDERED: Warfarin 2 MG Tab PO ONE (13:30)
[2021-11-24] MEDS: Omeprazole 20 MG Cap.CR PO SCH ×2 (06:26→16:57)
[2021-11-24] MEDS: Polyethylene Glycol 3350 Powder 17 GM Packet PO SCH (10:44)
[2021-11-24] MEDS: Potassium Chloride 10 MEQ Tab.ER PO SCH (10:45)
[2021-11-24] MEDS: Furosemide 20 MG Tab PO SCH (10:45)
[2021-11-24] MEDS: Digoxin 250 MCG Tab PO SCH (10:46)
[2021-11-24] MEDS: Carvedilol 25 MG Tab PO SCH ×2 (10:47→20:56)
[2021-11-24] MEDS ORDERED: Warfarin 2 MG Tab PO ONE (14:00)
[2021-11-24] MEDS: Acetaminophen 325 MG Tab PO PRN ×2 (14:39→20:55)
[2021-11-24] MEDS: Melatonin 3 MG Tab PO PRN (20:55)
[2021-11-24] MEDS: QUEtiapine 25 MG Tab PO SCH (20:56)
[2021-11-25] MEDS: Omeprazole 20 MG Cap.CR PO SCH ×2 (06:00→16:35)
[2021-11-25] MEDS: Potassium Chloride 10 MEQ Tab.ER PO SCH (08:49)
[2021-11-25] MEDS: Carvedilol 25 MG Tab PO SCH ×2 (08:49→20:51)
[2021-11-25] MEDS: Digoxin 250 MCG Tab PO SCH (08:49)
[2021-11-25] MEDS: Polyethylene Glycol 3350 Powder 17 GM Packet PO SCH (08:50)
[2021-11-25] MEDS: Furosemide 20 MG Tab PO SCH (08:50)
[2021-11-25] MEDS: Melatonin 3 MG Tab PO PRN (20:52)
[2021-11-25] MEDS: QUEtiapine 25 MG Tab PO SCH (20:52)
[2021-11-25] MEDS: Acetaminophen 325 MG Tab PO PRN (20:55)
[2021-11-26] MEDS: Omeprazole 20 MG Cap.CR PO SCH ×2 (06:17→16:30)
[2021-11-26] MEDS: Polyethylene Glycol 3350 Powder 17 GM Packet PO SCH (08:35)
[2021-11-26] MEDS: Carvedilol 25 MG Tab PO SCH ×2 (08:35→21:17)
[2021-11-26] MEDS: Potassium Chloride 10 MEQ Tab.ER PO SCH (08:36)
[2021-11-26] MEDS: Digoxin 250 MCG Tab PO SCH (08:36)
[2021-11-26] MEDS: Furosemide 20 MG Tab PO SCH (08:37)
[2021-11-26] MEDS: Acetaminophen 325 MG Tab PO PRN ×2 (12:52→23:58)
[2021-11-26] MEDS: Melatonin 3 MG Tab PO PRN (21:17)
[2021-11-26] MEDS: QUEtiapine 25 MG Tab PO SCH (21:18)
[2021-11-27] MEDS: Omeprazole 20 MG Cap.CR PO SCH ×2 (05:14→17:22)
[2021-11-27] MEDS: Polyethylene Glycol 3350 Powder 17 GM Packet PO SCH (08:27)
[2021-11-27] MEDS: Potassium Chloride 10 MEQ Tab.ER PO SCH (08:27)
[2021-11-27] MEDS: Carvedilol 25 MG Tab PO SCH ×2 (08:27→20:48)
[2021-11-27] MEDS: Digoxin 250 MCG Tab PO SCH (08:28)
[2021-11-27] MEDS: Furosemide 20 MG Tab PO SCH (08:28)
[2021-11-27] MEDS ORDERED: Warfarin 2 MG Tab PO SCH (14:00)
[2021-11-27] MEDS: Acetaminophen 325 MG Tab PO PRN ×2 (15:19→20:52)
[2021-11-27] MEDS: QUEtiapine 25 MG Tab PO SCH (20:51)
[2021-11-27] MEDS: Melatonin 3 MG Tab PO PRN (20:52)
[2021-11-28] MEDS: Carvedilol 25 MG Tab PO SCH ×2 (08:22→20:46)
[2021-11-28] MEDS: Furosemide 20 MG Tab PO SCH (08:22)
[2021-11-28] MEDS: Potassium Chloride 10 MEQ Tab.ER PO SCH (08:22)
[2021-11-28] MEDS: Omeprazole 20 MG Cap.CR PO SCH ×2 (08:22→17:16)
[2021-11-28] MEDS: Digoxin 250 MCG Tab PO SCH (08:22)
[2021-11-28] MEDS: Polyethylene Glycol 3350 Powder 17 GM Packet PO SCH (08:23)
[2021-11-28 08:26] LABS: ANION GAP 12.6 mEq/L (7-13); CHLORIDE,CL 108 mmol/L (98-107); SODIUM,NA 139 mmol/L (136-145)
[2021-11-28] MEDS: Acetaminophen 325 MG Tab PO PRN ×2 (12:44→20:44)
[2021-11-28] MEDS: Melatonin 3 MG Tab PO PRN (20:44)
[2021-11-28] MEDS: QUEtiapine 25 MG Tab PO SCH (20:44)
[2021-11-29 07:18] LABS: ANION GAP 13.9 mEq/L (7-13)
[2021-11-29] MEDS: Polyethylene Glycol 3350 Powder 17 GM Packet PO SCH (10:05)
[2021-11-29] MEDS: Potassium Chloride 10 MEQ Tab.ER PO SCH (10:05)
[2021-11-29] MEDS: Digoxin 250 MCG Tab PO SCH (10:06)
[2021-11-29] MEDS: Carvedilol 25 MG Tab PO SCH ×2 (10:06→20:00)
[2021-11-29] MEDS: Furosemide 20 MG Tab PO SCH ×2 (10:06→14:57)
[2021-11-29] MEDS: Omeprazole 20 MG Cap.CR PO SCH ×2 (12:07→16:55)
[2021-11-29] MEDS ORDERED: Warfarin 2 MG Tab PO ONE (14:00)
[2021-11-29] MEDS: Acetaminophen 325 MG Tab PO PRN (16:56)
[2021-11-29] MEDS: Melatonin 3 MG Tab PO PRN (20:01)
[2021-11-29] MEDS: QUEtiapine 25 MG Tab PO SCH (20:01)
[2021-11-30] MEDS: Omeprazole 20 MG Cap.CR PO SCH (05:20)
[2021-11-30 06:57] LABS: ANION GAP 13.8 mEq/L (7-13)
[2021-11-30 07:55] VITALS: BP 110/85; PULSE 97
[2021-11-30] MEDS: Polyethylene Glycol 3350 Powder 17 GM Packet PO SCH (08:04)
[2021-11-30] MEDS: Furosemide 20 MG Tab PO SCH (08:06)
[2021-11-30] MEDS: Digoxin 250 MCG Tab PO SCH (08:06)
[2021-11-30] MEDS: Carvedilol 25 MG Tab PO SCH (08:06)
[2021-11-30] MEDS: Potassium Chloride 10 MEQ Tab.ER PO SCH (08:07)
[2021-11-30] MEDS: Acetaminophen 325 MG Tab PO PRN (09:24)
== END 2021-11-30 10:25 | DRG 291 ==
LOC: DL.ED 07:57 → DL.MS 10:51
PROVIDERS: ADMIT Internal Medicine; ATTEND Internal Medicine
PROC: 8E0ZXY6 Isolation (ICD-10-PCS; principal; 2021-11-13)
PROC: 3E0DX3Z Introduction of Anti-inflammatory into Mouth and Pharynx, External Approach (ICD-10-PCS; 2021-11-13)
DX: I50.23 Acute on chronic systolic (congestive) heart failure (principal); I50.9 Heart failure, unspecified; U07.1 COVID-19; N39.0 Urinary tract infection, site not specified; I48.20 Chronic atrial fibrillation, unspecified; F03.91 Unspecified dementia, unspecified severity, with behavioral disturbance; J98.11 Atelectasis; F05 Delirium due to known physiological condition; K21.9 Gastro-esophageal reflux disease without esophagitis; Z66 Do not resuscitate; I48.91 Unspecified atrial fibrillation; H54.7 Unspecified visual loss; F41.9 Anxiety disorder, unspecified; F03.90 Unspecified dementia, unspecified severity, without behavioral disturbance, psychotic disturbance, mood disturbance, and anxiety; G47.00 Insomnia, unspecified; I07.1 Rheumatic tricuspid insufficiency; M19.90 Unspecified osteoarthritis, unspecified site; R07.9 Chest pain, unspecified; R10.13 Epigastric pain; Z86.718 Personal history of other venous thrombosis and embolism; Z86.711 Personal history of pulmonary embolism; Z79.01 Long term (current) use of anticoagulants; Z88.1 Allergy status to other antibiotic agents; Z79.899 Other long term (current) drug therapy; Z86.16 Personal history of COVID-19; Z28.82 Immunization not carried out because of caregiver refusal
CPT/HCPCS: 36415; 51702; 71045; 80053; 81001; 83605; 83880; 84484; 85025; 85610; 85730; 87086; 87088; 87186; 93005; 96374; 99285; J1940; U0002; 80048; 80162; 85027; 85651; 86140; 97110-GP; 97116-GP; 97161-GP; 97165-GO; 97530-GO; 97530-GP; 97535-GO; 99221; 99232; 99233; 99239; A9270-GY; J0696; J1160; J2060; J3490; J7030; J8540